=== PATIENT | female | born 1945 | race Caucasian/White ===

== ENCOUNTER 2023-03-08 09:51 | Outpatient (CLI) | payer MEDICARE, BC, SELFPAY ==
--- NOTE | 2023-03-08 10:15 | CRLHL7_ITS ---
For Patients: As a result of the Century Cures Act, medical imaging exams and procedure reports are released immediately into your electronic medical record. You may view this report before your referring provider. If you have questions, please contact your health care provider. Indication: Right groin pain Procedure : Informed consent was obtained. The site was marked. Time-out was performed. The skin of the right hip was cleansed with ChloraPrep. A sterile drape was placed. 8 cc of 1 percent lidocaine was administered for superficial anesthesia. Subsequently a 22 gauge spinal needle was introduced into the right hip joint under intermittent fluoroscopic guidance. 7 cc 1 percent lidocaine and 2 cc 40 milligram/cc Depo-Medrol then placed into the right hip joint. The needle was removed and hemostasis achieved with direct pressure. A dressing was placed. The patient tolerated the procedure well without immediate complication. Total fluoroscopy time 18 seconds. Impression: Successful fluoroscopically guided right hip injection with 80 milligrams of Depo-Medrol. Dictated by Gaetano Jefferson MD @ 03/08/2023 2:18:55 PM (Electronically Signed)
== END 2023-03-08 09:52 | disposition home or self-care (01) ==
LOC: RAD 09:54
PROVIDERS: PCP Physician Assistant; Visit Provider Orthopaedic Surgery Sports Medicine
DX: R10.30 Lower abdominal pain, unspecified (principal); M16.11 Unilateral primary osteoarthritis, right hip
CPT/HCPCS: 20610; 77002; J1030; Q9966

== ENCOUNTER 2023-05-24 13:07 | Outpatient (CLI) | payer MEDICARE, BC, SELFPAY ==
--- NOTE | 2023-05-24 13:45 | MR_ITS ---
[facility] [address] [facility] [address] Phone:?[phone] Fax:?[phone] Referring Physician Information: Kj Cassidy M.D. [address] [facility] [address] Phone:?[phone] Fax:?[phone] Patient:?Clarita Grimaldo D.O.B:?1945 Sex:?Female Phone:?[phone] [facility] MRN:?[id number] Exam Date:?05/24/2023 EXAM: MR LUMBAR SPINE WITHOUT CONTRAST CLINICAL INFORMATION: Low back pain and radiculopathy. COMPARISON: No prior MRI available. TECHNICAL INFORMATION: Multiplanar multisequence imaging in the lumbar spine. Contrast:?None. Sedation:?None. INTERPRETATION: Osseous structures/Alignment: Normal lordotic alignment. Prominent bridging or near bridging ventral osteophytes lower thoracic spine. Several benign intraosseous hemangiomas with no osseous destructive lesion or fracture. Facet/SI joints: Mild to moderate L1-2 through L3-4 facet degenerative changes. No active inflammation. Upper SI joints are unremarkable. Cord/conus: Normal signal intensity distal cord/conus medullaris. Extra-spinal findings: Moderate sized T2 hyperintense left renal cysts, likely incidental finding. L5-S1: Moderate disc degeneration, circumferential bulge and endplate osteophytes with moderate left greater than right foraminal stenosis with left L5 ganglionic impingement and encroachment on the right. No central stenosis. L4-5: Moderate severe disc generation with 4.5 mm central/right dorsolateral disc herniation with subarticular right L5 nerve impingement. No central stenosis. Mild right foraminal stenosis. L3-4: Moderate disc generation with broad-based 3 to 4 mm protrusion, prominent dorsal epidural fat in mild narrowing of the dural sac and encroachment on the L4 roots without significant displacement. Mild bilateral foraminal stenosis. L2-3: Moderate disc degeneration with hypertrophic left facet arthropathy, foraminal bulge and osteophyte and moderate stenosis with left L2 ganglionic impingement. Patent right nerve root canal. L1-2: Mild disc generation, broad-based 4 to 5 mm protrusion with facet hypertrophy and ioze-mc-uhotlryu narrowing the dural sac with and subarticular encroachment on the left L2 root. Sections through the lower thoracic spine are unremarkable. Moderate spondylosis/disc degeneration lower thoracic spine. No neural compromise. CONCLUSION: 1. L4-5 bulge/right dorsolateral herniation with subarticular right L5 nerve impingement. 2. Moderate left L2-3/L5-S1 foraminal stenosis with respective left L2/L5 ganglionic impingement. 3. Iqrc-zf-critkavu central canal stenosis/dural sac narrowing L2-3, L3-4 with no neural impingement. Electronically signed on 05/25/2023 9:37:00 AM by Jamal Coughlin M.D.
--- NOTE | 2023-05-24 14:30 | MR_ITS ---
[facility] [address] [facility] [address] Phone:?[phone] Fax:?[phone] Referring Physician Information: Kj Cassidy M.D. [address] [facility] [address] Phone:?[phone] Fax:?[phone] Patient:?Clarita Grimaldo D.O.B:?1945 Sex:?Female Phone:?[phone] [facility] MRN:?[id number] Exam Date:?05/24/2023 EXAM: MRI of the RIGHT HIP, without contrast CLINICAL: Evaluate for abductor muscle tear. COMPARISONS: None available. TECHNICAL: Multiplanar multisequence MRI of the right hip was obtained. Coronal large putyl-ts-rgip sequences of the pelvis/bilateral hips were also obtained. SEDATION: None. CONTRAST: None. FINDINGS: Evaluation of some of the obtained sequences is relatively limited by motion artifact. Hip joint: Small right hip joint effusion is present with synovitis. There is full-thickness chondral loss throughout the right hip joint. Labrum: There is ill-defined fraying and tearing throughout the labrum. No perilabral cyst formation identified. Proximal femur: There is a subchondral fracture with articular surface collapse seen to involve the superior femoral head and with curvilinear signal changes seen to involve the superior femoral head consistent with sequelae of avascular necrosis. Marked bone marrow edema involves the right femoral head and neck. There is mild degenerative peripheral marginal spurring involving the femoral head neck junction and involving the medial femoral head about the fovea. Acetabulum: There is degenerative peripheral marginal spurring involving the acetabulum with subchondral reactive marrow edema seen to involve the acetabulum. No acetabular fracture identified. Ligamentum teres: Intact and unremarkable. Pelvis osseous structures: No suspicious marrow signal alteration or fracture line. Mild changes of arthrosis are seen to involve the inferior left sacroiliac joint with minimal changes of arthrosis involving the inferior right sacroiliac joint. Moderate degenerative hypertrophic changes are seen to involve the pubic symphysis. No evidence of osteitis pubis. Myotendinous structures: Gluteus abductors: Evaluation of the distal gluteal tendons is limited on the axial PD fat-sat sequence secondary to motion artifact. Suspect partial tearing of the distal right gluteus minimus tendon with associated mild fluid about the distal tendon as visualized. Distal gluteus medius tendon appears unremarkable as visualized. Adductors: No demonstrable tendinopathy or strain/tear. Hamstrings: There is partial tearing/deep fiber stripping involving the proximal hamstring tendons bilaterally at the ischial tuberosity attachment sites. Flexors: Intact iliopsoas and rectus femoris, without strain/tear. External rotators: Intact. The ischiofemoral and quadratus femoris spaces are within normal limits. Gluteal aponeurotic fascia and IT band: Unremarkable. Bursae: No demonstrable trochanteric or iliopsoas bursitis. Intrapelvic structures: Although evaluation of the intrapelvic structures is limited on this exam, no convincing pelvic mass is identified as visualized. Colonic diverticulosis is noted. Multilevel degenerative changes are seen to involve the imaged lower lumbar spine. IMPRESSION: 1. Findings of avascular necrosis with subchondral fracture and articular surface collapse involving the superior right femoral head. Associated marked bone marrow edema involving the right femoral head and neck. 2. Full-thickness chondral loss throughout the right hip joint with osseous changes of right hip osteoarthritis as above. Ill-defined fraying and tearing throughout the acetabular labrum. 3. Suspect partial tearing of the distal right gluteus minimus tendon with associated mild fluid about the distal tendon as visualized. 4. Partial tearing/deep fiber stripping involving the proximal hamstring tendons bilaterally at the ischial tuberosity attachments. 5. Mild changes of arthrosis involving the inferior left sacroiliac joint with minimal changes of arthrosis involving the inferior right sacroiliac joint. 6. Moderate degenerative hypertrophic changes involving the pubic symphysis. JCZ Electronically signed on 05/24/2023 4:57:00 PM by Kamran Begum D.O.
== END 2023-05-24 13:08 | disposition home or self-care (01) ==
LOC: MRI 13:12
PROVIDERS: PCP Physician Assistant; Visit Provider Orthopaedic Surgery Sports Medicine
DX: M70.61 Trochanteric bursitis, right hip (principal); S72.051A Unspecified fracture of head of right femur, initial encounter for closed fracture; S76.011A Strain of muscle, fascia and tendon of right hip, initial encounter; M76.891 Other specified enthesopathies of right lower limb, excluding foot; M51.26 Other intervertebral disc displacement, lumbar region; M54.16 Radiculopathy, lumbar region; M48.061 Spinal stenosis, lumbar region without neurogenic claudication
CPT/HCPCS: 72148; 73721

== ENCOUNTER 2023-06-15 10:33 | Outpatient (RCR) | payer MEDICARE, BC, SELFPAY ==
--- NOTE | 2023-06-15 13:49 | PT.OPEX ---
[facility] Eval Start: 06/15/23 10:58 Freq: Status: Active Protocol: Document 06/15/23 11:01 DESHAUN (Rec: 06/15/23 13:45 DESHAUN [id number]) E-signed By Avelino Benítez PT Physical Therapy Outpatient Evaluation Insurance Information Insurance Name Medicare B,Blue Cross/Blue Shield Medical Diagnosis Right hip OA Treating Diagnosis Right hip pain and weakness Referring MD Cassidy Subjective Subjective Bilateral knee OA and lumbar DJD Pain Comments 8-10 Date of Surgery (If applicable) 06/19/23 Current Work Status Retired Preferred Name Clarita Objective Other/Pertinent Objective Ambulation with 4 wheeled walker with decreased stance on right. Left hip ROM is WFL for age. Right hip ROM: significant deficits in flexion, extension , abduction, ER and IR Strength: left hip WFL; right hip moderate weakness Core weakness/deconditioning Bilateral UE ROM and strength is WFL Assessment Assessment/Impression Objectively, pt. demonstrates; moderate limp during gait even with utilization of 4 wheeled walker; significant loss of right hip ROM with hip flexor contracture and inability to lie supine with right leg flat; hip abductor, flexor, and extensor weakness; right quad weakness; and functional upper body mobility and strength. Pt. lives with her daughter and stays on one level with accessible bathroom with walk in shower and raised toilet frame. She has 5 steps with bilateral railing to get to her level. She would benefit from skilled therapy following her JACKY on 06/19/23. Primary Functional Limitations walking, lifting right leg, squatting, sleeping Plan of Care Rehabilitation Potential Excellent Physical Therapy Goals 1. Pt. will demonstrate understanding of JACKY surgery and her pre-op HEP today. MET 2. Pt. will be able to walk with a cane safely without increased right hip pain in 8 weeks. 3. Pt. will be able to drive and perform her normal ADL's again indep in 8 weeks. Coordination/Communication With Referral Source Treatment Plan/Direct Interventions Self-Care/Home Management, Therapeutic Activities, Therapeutic Exercises Frequency/Duration 1x visit today for pre-op JACKY education and instruction in HEP. She will then follow up after JACKY surgery with another outpatient PT clinic in [place]. Patient Will Be Discharged From Therapy Independent w/HEP Evaluation Billing Complexity Low Certification Information Initial Certification Date 06/15/23 Ending Certification Date 07/15/23 Provider Signature Shows Agreement With POC & Medical Necessity Physician Signature & Date Requested Please Sign/Date Here Physician Comment/Change : Physician NPI Number #
== END 2023-06-20 11:18 | disposition home or self-care (01) ==
PROVIDERS: PCP Physician Assistant; Visit Provider Orthopaedic Surgery Sports Medicine
DX: M16.11 Unilateral primary osteoarthritis, right hip (principal); R26.9 Unspecified abnormalities of gait and mobility; Z51.89 Encounter for other specified aftercare
CPT/HCPCS: 97110; 97161

== ENCOUNTER 2023-06-17 14:54 | Outpatient (CLI) | payer MEDICARE, BC, SELFPAY | END 2023-06-17 14:55 | disposition home or self-care (01) | PROVIDERS: PCP Physician Assistant; Visit Provider Orthopaedic Surgery Sports Medicine | DX: Z01.818 Encounter for other preprocedural examination (principal) | CPT/HCPCS: 36415; 86850; 86900; 86901 ==

== ENCOUNTER 2023-06-19 07:01 | Day surgery (SDC) | payer MEDICARE, BC, SELFPAY ==
[2023-06-19] VITALS (25 sets, daily range): BP systolic 90–165; BP diastolic 41–83; PULSE 60–98; RESP 14–20; TEMP 36.1–37.3; O2SAT 74–100; BMI 42.7
--- NOTE | 2023-06-19 07:18 | W.PM.H&PU ---
History & Physical Update History & Physical Update H&P Reviewed and patient assessed: No changes noted
[2023-06-19] MEDS: SODIUM CHLORIDE 0.9 % (FLUSH) 10 ML SYRINGE IVF ×2 (07:20→11:34)
[2023-06-19] MEDS: ACETAMINOPHEN 500 MG TABLET 1000 MG PO ×3 (07:20→18:30)
[2023-06-19] MEDS: LACTATED RINGERS 1000 ML 1,000 ML 100 ML IV ×2 (07:20→10:45)
[2023-06-19] MEDS: OXYCODONE (CR) 10 MG TAB.ER.12H PO (07:20)
--- NOTE | 2023-06-19 07:21 | CRLHL7_ITS ---
For Patients: As a result of the Cures Act, medical imaging exams and procedure reports are released immediately into your electronic medical record. You may view this report before your referring provider. If you have questions, please contact your health care provider. Indication: s/p right total hip arthroplasty Technique: AP hip centered pelvis and lateral view right hip Findings/Impression: Hardware from a right total hip arthroplasty is in satisfactory position. Bone alignment is normal. No sign of acute fracture. Postop changes are within normal limits. Dictated by Gaetano Jefferson MD @ 06/19/2023 10:56:05 AM (Electronically Signed)
[2023-06-19] MEDS: MIDAZOLAM HCL 1 MG/ML inj IVP (07:30)
[2023-06-19] MEDS: fentaNYL 100 MCG/2 ML inj IVP (07:30)
--- NOTE | 2023-06-19 07:30 | CRLHL7_ITS ---
For Patients: As a result of the Cures Act, medical imaging exams and procedure reports are released immediately into your electronic medical record. You may view this report before your referring provider. If you have questions, please contact your health care provider. Indication: Hip replacement surgery Technique: AP hip fluoroscopic images. Fluoroscopy time 47.0 seconds. Findings/Impression: Hardware from a right total hip arthroplasty is in satisfactory position. Dictated by Gaetano Jefferson MD @ 06/19/2023 11:09:00 AM (Electronically Signed)
--- NOTE | 2023-06-19 07:35 | SUR.PREOP ---
TIME?OUT:?0725 PT/RN/MDA?VERIFICATION?OF?SURGICAL?SITE,?PROCEDURE,?AND?CONSENT OBTAINED?PRIOR?TO?INVASIVE?PROCEDURE.
[2023-06-19] MEDS: CEFAZOLIN 2 GM in 0.9 % SODIUM CHLORIDE Mini-bag 100 ML IVPB ×3 (07:57→23:52)
--- NOTE | 2023-06-19 09:19 | PM.ORPRC ---
Procedure Note Date of procedure: 06/19/23 Procedure: PREOPERATIVE DIAGNOSIS: 1. Right hip osteoarthritis, severe, primary POSTOPERATIVE DIAGNOSIS: 1. Right hip osteoarthritis, severe, primary PROCEDURE: 1. Right total hip arthroplasty-anterior approach 2. 45316 - intraoperative fluoroscopy up to 1 hour. SURGEON: Kj Cassidy MD. MEDICAL GENETICS DIRECTOR: Harshil Luque PA-C; ROSY Sotelo - Of note, a skilled career services assistant was critical for this case to aid in patient positioning, tissue retraction, limb manipulation/positioning, and closure. ANESTHESIA: General endotracheal anesthetic EBL: 450 mL IMPLANTS: DePuy J&J uncemented total hip Ingraham cup size 48, hole eliminator, +4 neutral liner Actis stem, standard offset, size 5 +5 mm ceramic 32mm head COMPLICATIONS: None evident INDICATIONS: The patient is a pleasant 78-year-old female who has experienced severe right hip pain and difficulty bearing weight. Workup included x-rays which revealed severe osteoarthrosis in the hip. Given the deformity, the dysfunction, and the pain, as well as the failure of nonoperative management, recommendation was made for surgery. FINDINGS: Full-thickness chondral loss broadly throughout the femoral head. Osteophytes around the femoral head/neck junction and lateral and anterior acetabulum in particular. Small effusion upon entering the joint. DESCRIPTION OF PROCEDURE: Following a thorough discussion of risks, benefits, and alternatives consent was obtained and the right hip was marked. The patient was brought to the operating room and placed supine on the operating table. Induction of anesthesia was undertaken. 2 g IV Ancef and 1 g tranexamic acid was administered within 1 hr of incision preoperatively. Proper time-out was performed identifying proper patient, site, procedure. The operative extremity was prepped and draped in the appropriate sterile fashion using ChloraPrep after the patient was positioned on the [place] table with head in neutral alignment and all bony prominences well padded. C-arm fluoroscopic imaging was utilized to confirm proper pelvis rotation and position, and to get true AP films of both the contralateral left, and the affected right hip. This is for comparison. A longitudinal incision was made starting approximately 1 cm distal to the ASIS, and 3-4 cm lateral. The incision was extended distally aiming toward the lateral border the patella. Sharp incision through skin and bovie cautery through the subcutaneous tissue allowed identification of the TFL fascia. This was sharply divided, and the fascia bluntly released from the muscle fibers as we dissected medial. Upon coming to the medial border, we were able to retract the TFL laterally, and penetrated the deeper fascia and identify the crossing circumflex vessels. These were ligated/cauterized. The rectus was elevated from the capsule, and retractors placed laterally and medially along the femoral neck to help with visualization of the capsule. We then performed an inverted T capsulotomy. The capsule was tagged for later repair. Retractors were placed inside the capsule. The femoral neck was visualized after releasing medially down to the lesser trochanter, along the saddle laterally, and up onto the acetabulum. The femoral neck cut was made in line with our preoperative templating. The head was removed in a single piece, and sized. We turned our attention to acetabular preparation. Initially, the labrum was resected from around the perimeter, the pulvinar was excised, allowing us to visualize the false wall. We started the reaming with a 43 mm reamer. This was medialized down to the true wall. We then enlarged our reamers sequentially up to one size less than the selected cup size. We trialed at the same size and found it to have an excellent fit. The selected cup was then opened, inserted, and impacted in line with the goal of 40? of abduction, and 20-25? of anteversion. This was confirmed on C-arm fluoroscopic imaging to be in the appropriate/goal position. Once the cup was placed we placed a hole eliminator and a liner consistent with preop planning. Attention was turned to the femoral preparation. The limb was extended, externally rotated, and adducted. The posteromedial capsule was released, as retractors were placed allowing excellent access to the proximal femur. Initially a box office agent was followed by canal finder followed by various broaches. We broached sequentially up to the size noted above, found it to have excellent rotational control, and trialing various heads and necks, revealed that appropriate neck offset, and the above noted head size provided the greatest stability, and hinduism of length, and offset. C-arm fluoroscopic imaging confirmed position of the stem, as well as leg lengths, which were compared with the pre procedure all fluoroscopic images. Trial implants were removed, the real femoral stem inserted, as was the appropriate head. After reducing, the leg was placed through range of motion and stability was confirmed anterior, posterior, and lateral. A 3 min Betadine soak was then performed, and thorough irrigation with normal saline followed. Closure of the capsule was performed with #1 PDS. Bleeding was confirmed to be controlled at this stage, and the TFL fascia was closed with #0 strata fix. Subcutaneous, and subcuticular closure was performed with 2-0 Vicryl and 4-0 Monocryl, respectively. Dressings were applied, and the patient was awoken from anesthesia and transferred the PACU in stable condition. A skilled career services assistant was critical for this case to aid in patient positioning, tissue retraction, acetabular and proximal femoral exposure, limb manipulation/positioning, dislocation/relocation, patient safety, and closure. PLAN: 1. Weight bear as tolerated operative extremity. 2. 23 hr perioperative antibiotics. 3. Ice. 4. PT/OT consults for ambulation assistance/mobility education. 5. Social work consult for discharge planning. 6. DVT prophylaxis with at SCDs, Chaitanya Hose, and Xarelto x5 days followed by aspirin for a total of 1 month..
--- NOTE | 2023-06-19 10:02 | W.ANESCHARGE ---
Anesthesia Charges Start Date/Time Anesthesia Start Date: 06/19/23 Anesthesia Start Time: 07:39 Stop Date/Time Anesthesia Stop Date: 06/19/23 Anesthesia Stop Time: 10:02
--- NOTE | 2023-06-19 10:09 | SUR.PHASEI ---
xray here for ap/lat right hip
[2023-06-19] MEDS: fentaNYL 100 MCG/2 ML inj 50 MCG IVP (10:37)
--- NOTE | 2023-06-19 10:47 | SUR.PHASEI ---
Pt has pain of 6-7 iv meds given needed to reapply o2 sats decreased from medication
[2023-06-19] MEDS: HYDROmorphone 0.5 mg/0.5 ml inj IVP (11:33)
--- NOTE | 2023-06-19 11:40 | W.PM.NB ---
Nerve Block Nerve Block Time Seen by Provider: 07:32 Date Seen: 06/19/23 Type of block requested by surgeon for post-operative analgesia: MOMO/LFCN Side: right Time out performed: Yes Verification of patient name: Yes Verification of date of : Yes Site marking: site marked Name of person performing procedure: Dandre Continuous monitoring Was continuous monitoring of O2 sat, B/P, hospital monitor, recorded every 15 minutes?: Yes Procedure Checklist: sterile prep, needles and gloves Ultrasound guided. Images saved: Yes Medications given in 5ml increments after negative aspiration: Ropivicaine %: 0.5 mL: 30 Needle gauge: 20 Decadron (mg): 10 Precedex (mcg): 25 Patient tolerated procedure well: Yes Additional comments: Needle noted below psoas tendon needle noted adjacent to LFCN Block Charges Block Charge (with Pro Fee): Other Periph Nerve Block Use of Ultrasound Machine for Block: Yes- US Guidance/pain block
--- NOTE | 2023-06-19 11:41 | W.ANESCHARGE ---
Anesthesia Charges Start Date/Time Anesthesia Start Date: 06/19/23 Anesthesia Start Time: 07:39 Stop Date/Time Anesthesia Stop Date: 06/19/23 Anesthesia Stop Time: 10:02 Summary Extremes of Age - Over 70 or under 1: MDA
--- NOTE | 2023-06-19 12:21 | P.IMCN_ITS ---
Date of Consult Patient: Other Consult date: 06/19/23 Requesting Physician: Orthopedics Primary Care Provider: Gabby Dupree PA-C Consult Narrative Narrative: Clarita Grimaldo is a 78 year old female admitted to the hospital for right total hip arthroplasty. Procedure was performed by Dr. Cassidy. No immediate operative complications. Patient reports doing well after the surgery. She is having some pain and his receive some pain medication causing some sedation. She reports that she was feeling well prior to surgery. She has had no recent illness. She does report that her life has been quite limited by chronic hip pain and immobility as a result. She had a preoperative evaluation which did not show any significant medical concern for her elective hip surgery. Postoperatively she has been hypoxic and there nurses applied nasal cannula oxygen to deal with this. Patient denies any history of heart or lung disease. She denies having sleep apnea as well. She tells me her had sleep apnea so she is familiar with it. She took all of her medications this morning except she has held her aspirin preoperatively. She did take her glipizide last evening, her usual time. Review of Systems Narrative: Other than her right hip pain she reports she has been doing well recently without other active medical problems. [facility] Medical History (Updated 06/19/23 @ 12:34 by Robert Guerrero MD) Hypercholesterolemia ?E78.00 - Pure hypercholesterolemia, unspecified (ICD-10) Dysphagia ?R13.10 - Dysphagia, unspecified (ICD-10) Dyspepsia ?R10.13 - Epigastric pain (ICD-10) Diverticulitis ?K57.92 - Diverticulitis of intestine, part unspecified, without perforation or abscess without bleeding (ICD-10) Depression ?F32.A - Depression, unspecified (ICD-10) Barretts esophagus ?K22.70 - Luu's esophagus without dysplasia (ICD-10) Diabetes ?E11.9 - Type 2 diabetes mellitus without complications (ICD-10) GERD (gastroesophageal reflux disease) ?K21.9 - Gastro-esophageal reflux disease without esophagitis (ICD-10) Hypertension ?I10 - Essential (primary) hypertension (ICD-10) Encounter for screening laboratory testing for severe acute respiratory syndrome coronavirus 2 (SARS-CoV-2) ?Z20.822 - Contact with and (suspected) exposure to COVID-19 (ICD-10) Surgical History (Updated 06/19/23 @ 12:32 by Robert Guerrero MD) History of vaginal hysterectomy ?Z90.710 - Acquired absence of both cervix and uterus (ICD-10) History of arthroscopy of left shoulder ?Z98.890 - Other specified postprocedural states (ICD-10) Status post blepharoplasty of both eyes (12/02/21) ?Z98.890 - Other specified postprocedural states (ICD-10) Fissure, anal (~2020) ?K60.2 - Anal fissure, unspecified (ICD-10) History of carpal tunnel surgery of right wrist (05/27/20) ?Z98.890 - Other specified postprocedural states (ICD-10) History of breast surgery ?Z98.890 - Other specified postprocedural states (ICD-10) History of hernia repair ?Z98.890 - Other specified postprocedural states (ICD-10) ?Z87.19 - Personal history of other diseases of the digestive system (ICD-10) History of trigger finger (03/10/21) ?Z87.39 - Personal history of other diseases of the musculoskeletal system and connective tissue (ICD-10) History of carpal tunnel surgery of left wrist (03/10/21) ?Z98.890 - Other specified postprocedural states (ICD-10) History of cholecystectomy ?Z90.49 - Acquired absence of other specified parts of digestive tract (ICD- 10) Family History (Updated 06/19/23 @ 12:26 by Robert Guerrero MD) Brother COPD (chronic obstructive pulmonary disease) Coronary artery disease Prostate cancer Diabetes Sister Colon cancer Coronary artery disease Social History (Updated 06/19/23 @ 12:28 by Robert Guerrero MD) Narrative: She is about 4 years ago. She lives with her daughter and son-in-law in [place]. They have a 3 level house and she lives in the lower level. She has 5 steps to get into the lower level. She has a walk-in shower. She does not smoke. She does not drink alcohol. Her daughter Paris is healthcare power of assistant attorney general What is your current living situation?: I presently have a place to live Problems where you live: no known problems In the past 12 months, utilities in danger of being shut off: no In past 12 months, lack of transportation kept you from medical appts, meetings, work, or getting things needed for daily living: no In the past 12 mos, have been you worried that your food would run out before you had money to buy more?: never true In the past 12 mos, the food you bought just didn't last and you didn't have money to buy more?: never true Highest level of school completed/degree received: high school graduate Smoking Status: Never smoker Do you use any of these nicotine containing products: None Second hand tobacco smoke exposure: No How often do you have a drink containing alcohol: never How often do you have six or more drinks on one occasion: Never AUDIT-C Alcohol total score: 0 Non-prescribed substance use: denies use Caffeine: Yes (coffee) Are you now , , , , never or living with a partner: Social isolation score (0-1 are the most socially isolated patients): 0 How often does anyone, including family, friends and others, physically hurt you : never How often does anyone, including family, friends and others, insult or talk down to you: never How often does anyone, including family, friends and others, threaten you with harm: never How often does anyone, including family, friends and others, scream or curse at you: never Meds Home Medications and Allergies Home Medications Medication Instructions Recorded Confirmed Type antiarthritic combination no.2 900 900 mg PO QDAY 02/14/22 06/19/23 History mg tablet (glucosamine-chondroitin) aspirin 81 mg tablet,delayed 81 mg PO DAILY 02/14/22 06/19/23 History release atorvastatin 80 mg tablet 80 mg PO .Bedtime 02/14/22 06/19/23 History calcium polycarbophil 625 mg 1,250 mg PO QDAY 02/14/22 06/19/23 History tablet (FiberCon) calcium-vitamin D2-iron tablet 1 tab PO QDAY 02/14/22 06/19/23 History clobetasol 0.05 % topical cream 1 topical BID 02/14/22 06/06/23 History estradiol 0.01% (0.1 mg/gram) 1 vaginal DAILY 02/14/22 06/06/23 History vaginal cream fluticasone propionate 50 2 intranasal DAILY 02/14/22 06/06/23 History mcg/actuation nasal spray,suspension omeprazole 20 mg capsule,delayed 20 mg PO DAILY 02/14/22 06/19/23 History release sertraline 50 mg tablet 50 mg PO DAILY 02/14/22 06/19/23 History albuterol sulfate 90 mcg/actuation inhalation 03/21/23 06/06/23 History aerosol inhaler amlodipine 2.5 mg tablet 2.5 mg PO DAILY 03/21/23 06/19/23 History glipizide 2.5 mg tablet, extended 2.5 mg PO DAILY 03/21/23 06/19/23 History release 24 hr hydrochlorothiazide 12.5 mg tablet 12.5 mg PO DAILY 03/21/23 06/19/23 History lisinopril 40 mg tablet 40 mg PO DAILY 03/21/23 06/19/23 History Allergies Allergy/AdvReac Type Severity Reaction Status Date / Time morphine Allergy Unknown Verified 06/19/23 07:40 Exam Narrative: Exam Narrative: She is alert and appears in no distress. She gives her own history. Eyes normal. Oropharynx with small airway, Mallampati 3. Neck is supple without mass or adenopathy. Respirations are clear to auscultation. No wheezing rales or rhonchi. Cardiovascular: S1, S2, regular rate and rhythm. 2/6 systolic murmur. No gallop or rub. Abdomen is soft without tenderness or mass. She has a diastasis recti. External genitalia normal. Hip appears without obvious swelling bruising or erythema. Distally she has intact pulses and sensation. No edema. Const: Vital Signs, click to edit/add: Vital Signs - 24 hr 06/19/23 07:26 06/19/23 07:30 06/19/23 07:35 Temperature 97.7 F Pulse Rate 79 78 75 Pulse Rate [Right Pulse Oximeter] Respiratory Rate 16 16 16 Blood Pressure 165/79 H 136/67 136/70 Blood Pressure [Le ft Arm] Pulse Oximetry 97 97 95 Oxygen Delivery Me thod Room Air Nasal Cannula Nasal Cannula Oxygen Flow Rate 2 2 06/19/23 10:04 06/19/23 10:05 06/19/23 10:10 Temperature 97.8 F Pulse Rate 98 75 69 Pulse Rate [Right Pulse Oximeter] Respiratory Rate 20 20 20 Blood Pressure 143/67 H 109/61 112/52 L Blood Pressure [Le ft Arm] Pulse Oximetry 96 97 100 Oxygen Delivery Me thod Non Rebreather Mas k Non Rebreather Mas k Non Rebreather Mas k Oxygen Flow Rate 10 10 10 06/19/23 10:15 06/19/23 10:20 06/19/23 10:25 Temperature Pulse Rate 62 60 64 Pulse Rate [Right Pulse Oximeter] Respiratory Rate 20 20 20 Blood Pressure 109/51 L 96/43 L 98/44 L Blood Pressure [Le ft Arm] Pulse Oximetry 100 100 98 Oxygen Delivery Me thod OxyMask Non Rebrea ther Mask OxyMask Room Air Oxygen Flow Rate 10 10 06/19/23 10:30 06/19/23 10:35 06/19/23 10:40 Temperature 98.2 F Pulse Rate 65 62 62 Pulse Rate [Right Pulse Oximeter] Respiratory Rate 20 20 20 Blood Pressure 92/41 L 90/44 L 94/45 L Blood Pressure [Le ft Arm] Pulse Oximetry 94 96 94 Oxygen Delivery Me thod Room Air Room Air OxyMask Oxygen Flow Rate 10 06/19/23 10:45 06/19/23 10:50 06/19/23 11:01 Temperature 96.9 F L Pulse Rate 65 67 64 Pulse Rate [Right Pulse Oximeter] Respiratory Rate 20 20 16 Blood Pressure 96/48 L 98/44 L Blood Pressure [Le ft Arm] 128/60 Pulse Oximetry 99 97 Oxygen Delivery Me thod OxyMask Room Air Room Air Oxygen Flow Rate 10 06/19/23 11:15 06/19/23 11:30 Temperature 96.9 F L 97.0 F L Pulse Rate Pulse Rate [Right Pulse Oximeter] 65 65 Respiratory Rate 18 18 Blood Pressure Blood Pressure [Le ft Arm] 118/57 L 119/54 L Pulse Oximetry 93 95 Oxygen Delivery Me thod Nasal Cannula Nasal Cannula Oxygen Flow Rate 1 1 Documenting provider has reviewed patient's vital signs: yes Assessment and Plan Assessment and plan (1) S/P total right hip arthroplasty: Problem comment: Dr. Cassidy 06/19/2023 Status: Acute (2) Hypoxia: Problem comment: Postoperative hypoxia. Suspect combination of opiate medicines causing sedation and undiagnosed sleep apnea Status: Acute (3) Obesity: Problem comment: BMI 42.8 (previous BMI of 41.9) Status: Acute (4) Diabetes: Problem comment: recent A1c of 7.2% May 2023. Monitor and sliding scale insulin plus home diabetes medicines. Status: Acute (5) Avascular necrosis of bone of right hip: Problem comment: AVN with subchondral fracture and articular surfrace collapse involving the superior right femoral head. Associated marked bone marrow edema involving the right femoral head and neck Status: Acute (6) Osteoarthritis of right hip: Problem comment: Severe Status: Acute (7) Hypertension: Problem comment: Hold home blood pressure medicines until blood pressure requires. Status: Acute Plan 78-year-old female admitted for right hip arthroplasty and postoperative care. Routine management with pain medication and therapy. Anticipate some disability due to obesity and deconditioning. Anticipate hypoxia from opioids and undiagnosed sleep apnea. Monitor blood pressure and resume blood pressure medicines as required. Monitor diabetes and sliding scale insulin. Anticipate discharge to home with her daughter tomorrow. Total time spent today is 45 minutes, 30 minutes in coordination of care and discussing with patient other providers management of postoperative care, discharge and management of chronic medical problems in the hospital
[2023-06-19] MEDS: OXYCODONE 5 MG TABLET PO ×4 (13:31→23:46)
--- NOTE | 2023-06-19 15:24 | PC.NURSE ---
End of shift NOte: Patient arrived to the unit around 1100. Today She had a pain of 10/10 when she first arrived and received dilaudid for the pain. Within an hour she was wanting to get up to the bathroom. Had two people as it was her first time getting up since surgery. She was a little dizzy at first but was able to ambulate to BR and then to the recliner chair. She had regular diet for lunch also took oral pain medication. Will continue to monitor until next shift arrives.
[2023-06-19] MEDS: INSULIN ASPART 100 UNIT/ML SUBCUT ×2 (17:34→21:21)
[2023-06-19] MEDS: ATORVASTATIN CALCIUM 40 MG TABLET 80 MG PO (20:53)
[2023-06-19] MEDS: SENNOSIDES 1 TAB TABLET 2 TAB PO (20:53)
[2023-06-19] MEDS: glipiZIDE 2.5 MG ER TAB PO (20:53)
--- NOTE | 2023-06-19 21:30 | PC.NURSE ---
Addendum entered by Olivia Noonan RN 06/19/23 21:53: 4 units of SS insulin given at dinner, and 2 units at bedtime. Original Note: VSS, sats in low 90s on RA. Right hip pain managed w/ PRN 10 mg oxy, scheduled tylenol, & ice. Tolerating regular diet, 1100 cc fluids in. Voided x3- straw yellow, odorous urine. Last BM yesterday, 06/18/23. Up with SBA, gait belt, and walker x3. Dressing on right hip-c/d/i. PIV in right hand- SL'd. Will continue to monitor, follow POC, and keep pt and family updated. Olivia Noonan RN
[2023-06-20] MEDS: ACETAMINOPHEN 500 MG TABLET 1000 MG PO ×2 (01:18→07:43)
[2023-06-20 03:00] VITALS: BP 122/63; PULSE 88; RESP 18; TEMP 37; O2SAT 94
[2023-06-20] MEDS: OXYCODONE 5 MG TABLET PO ×2 (03:33→07:44)
[2023-06-20] MEDS: OMEPRAZOLE 20 MG CAPSULE DR PO (06:08)
--- NOTE | 2023-06-20 06:35 | PC.NURSE ---
Pt A&O, VSS and afebrile overnight. Very low-grade fever beginning of shift. T-max 99.2 resolved with scheduled Tylenol. Pt rates right hip/buttock pain 12/17 as being dull and throbbing. Received PRN oxycodone x2 doses (last dose @ 0330). Pt SBA with GB & 2WW. Steady gait and adequate U/O overnight. No BM overnight but passing gas. Right hip dressing C/D/I. Pt hopeful to discharge home today 06/20. Cumulative Tylenol warning flagged for AM dose so unable to give at scheduled time. ?
[2023-06-20 06:38] LABS: Basophils Percent Auto 0.1 % (0.0-3.0); Hematocrit 27.5 % (33.0-51.0); Immature Granulocytes Pct Auto 0.2 %; Lymphocytes Percent Auto 21.4 % (20-44); Mean Corpuscular HGB Conc 33 gm/dL (32-36); Mean Corpuscular Hemoglobin 30 pg (26-34); Mean Corpuscular Volume 91 fL (80-100); Monocytes Percent Auto 9.3 % (0.0-11.0); Platelet Count* 247 K/uL (140-440); RDW Coefficient of Variation % 12.8 % (11.5-15.5); Red Blood Count 3.02 m/uL (4.00-5.20); White Blood Count* 11.61 K/uL (4.50-11.00)
[2023-06-20 06:42] LABS: Slide Review Reflex No
[2023-06-20 06:49] LABS: Potassium* 3.9 mmol/L (3.6-5.1); Sodium* 129 mmol/L (135-149)
[2023-06-20 06:52] LABS: Creatinine* 0.8 mg/dL (0.5-1.5); Est. Creatinine Clearance* 37.26; Estimated Glomerular Filt Rate 76 ml/min
[2023-06-20 06:53] LABS: Blood Urea Nitrogen* 22 mg/dL (7-30)
[2023-06-20 07:00] VITALS: BP 134/57; PULSE 93; RESP 20; TEMP 36.6; O2SAT 93
[2023-06-20] MEDS: INSULIN ASPART 100 UNIT/ML SUBCUT (07:42)
[2023-06-20] MEDS: SERTRALINE 50 MG TABLET PO (07:43)
[2023-06-20] MEDS: RIVAROXABAN 10 MG TABLET PO (07:44)
[2023-06-20] MEDS: ASPIRIN 81 MG TABLET EC PO (07:44)
[2023-06-20] MEDS: SENNOSIDES 1 TAB TABLET 2 TAB PO (07:47)
--- NOTE | 2023-06-20 10:29 | PM.ORPN ---
Subjective Subjective Date Seen: 06/20/23 Principal diagnosis: Status postop day 1, right total hip arthroplasty - anterior approach Interval history: Patient reports doing well. No acute events over night. Pain managed with scheduled and PRN medications, ice. DVT prophylaxis: Rivaroxaban, bilateral knee high Chaitanya stockings, SCDs, walking. Denies fevers, chills, aches, N/V, CP, SOB/KHAN, or lightheadedness. Ortho Exam Narrative Exam Narrative: -Patient appears comfortable in recliner; no apparent acute distress. Sister present. -Alert and oriented times 3 -Operative hip swollen; soft tissues supple; no obvious erythema. Ecchymosis minimal. Warmth appropriate -Surgical dressing clean, dry, intact; no obvious drainage, no erythematous streaking peripheral to the bandage -Bilateral calves soft and supple; no significant swelling, edema, tenderness, erythema, discoloration, warmth, or palpable cords -2+ DP/PT pulses, intact dermatomes and myotomes distally (5/5 strength). Noted numbness about the lateral femoral cutaneous nerve distribution. Const Vital Signs, click to edit/add: Vital Signs - 24 hr 06/19/23 10:30 06/19/23 10:35 06/19/23 10:40 Temperature 98.2 F Pulse Rate 65 62 62 Pulse Rate [Right Pulse Oximeter] Respiratory Rate 20 20 20 Blood Pressure 92/41 L 90/44 L 94/45 L Blood Pressure [Left Arm] Blood Pressure [Right Arm] Pulse Oximetry 94 96 94 Oxygen Delivery Method Room Air Room Air OxyMask Oxygen Flow Rate 10 06/19/23 10:45 06/19/23 10:50 06/19/23 11:01 Temperature 96.9 F L Pulse Rate 65 67 64 Pulse Rate [Right Pulse Oximeter] Respiratory Rate 20 20 16 Blood Pressure 96/48 L 98/44 L Blood Pressure [Left Arm] 128/60 Blood Pressure [Right Arm] Pulse Oximetry 99 97 Oxygen Delivery Method OxyMask Room Air Room Air Oxygen Flow Rate 10 06/19/23 11:15 06/19/23 11:30 06/19/23 12:30 Temperature 96.9 F L 97.0 F L 97.0 F L Pulse Rate Pulse Rate [Right Pulse Oximeter] 65 65 75 Respiratory Rate 18 18 18 Blood Pressure Blood Pressure [Left Arm] 118/57 L 119/54 L 107/83 Blood Pressure [Right Arm] Pulse Oximetry 93 95 94 Oxygen Delivery Method Nasal Cannula Nasal Cannula Nasal Cannula Oxygen Flow Rate 1 1 1 06/19/23 13:00 06/19/23 13:30 06/19/23 14:00 Temperature 97.0 F L 97.0 F L Pulse Rate Pulse Rate [Right Pulse Oximeter] 73 86 78 Respiratory Rate 20 20 20 Blood Pressure Blood Pressure [Left Arm] 126/64 133/70 108/52 L Blood Pressure [Right Arm] Pulse Oximetry 89 92 Oxygen Delivery Method Room Air Nasal Cannula Nasal Cannula Oxygen Flow Rate 1 1 06/19/23 15:14 06/19/23 15:36 06/19/23 18:20 Temperature 98.1 F 97.7 F Pulse Rate Pulse Rate [Right Pulse Oximeter] 72 78 88 Respiratory Rate 20 14 18 Blood Pressure Blood Pressure [Left Arm] 114/51 L Blood Pressure [Right Arm] 114/51 L 147/66 H Pulse Oximetry 94 93 92 Oxygen Delivery Method Nasal Cannula Nasal Cannula Room Air Oxygen Flow Rate 1 0.5 06/19/23 23:00 06/19/23 23:00 06/20/23 03:00 Temperature 99.2 F 98.6 F Pulse Rate Pulse Rate [Right Pulse Oximeter] 88 88 88 Respiratory Rate 16 16 18 Blood Pressure Blood Pressure [Left Arm] 117/62 Blood Pressure [Right Arm] 122/63 Pulse Oximetry 94 94 Oxygen Delivery Method Room Air Room Air Oxygen Flow Rate 06/20/23 07:00 06/20/23 07:00 Temperature 97.8 F Pulse Rate Pulse Rate [Right Pulse Oximeter] 93 93 Respiratory Rate 20 20 Blood Pressure Blood Pressure [Left Arm] Blood Pressure [Right Arm] 134/57 L Pulse Oximetry 93 Oxygen Delivery Method Room Air Oxygen Flow Rate Assessment and Plan Assessment and plan (1) S/P total right hip arthroplasty: Problem details: Dr. Cassidy 06/19/2023 Status: Acute (2) Hypoxia: Problem details: Postoperative hypoxia. Suspect combination of opiate medicines causing sedation and undiagnosed sleep apnea Status: Acute (3) Obesity: Problem details: BMI 42.8 (previous BMI of 41.9) Status: Acute (4) Diabetes: Problem details: recent A1c of 7.2% May 2023. Monitor and sliding scale insulin plus home diabetes medicines. Status: Acute (5) Avascular necrosis of bone of right hip: Problem details: AVN with subchondral fracture and articular surfrace collapse involving the superior right femoral head. Associated marked bone marrow edema involving the right femoral head and neck Status: Acute (6) Osteoarthritis of right hip: Problem details: Severe Status: Acute (7) Hypertension: Problem details: Hold home blood pressure medicines until blood pressure requires. Status: Acute Plan - Complete 23 hour perioperative antibiotics. - PT/OT consult for education and assistance. - Social work consult for discharge planning - Prescribed analgesics as needed - DVT prophylaxis: Rivaroxaban, bilateral knee high Chaitanya Hose stockings and SCDs - Anticipation is for discharge to home with daughter, son in law, sister today 06/20/2023 if the patient remains medically stable, pain is controlled, and they are safe with mobilization.
== END 2023-06-20 11:17 | disposition home or self-care (01) ==
LOC: OR 07:02 → MEDSURG 07:04
PROVIDERS: PCP Physician Assistant; Visit Provider Orthopaedic Surgery Sports Medicine
PROC: (CPT 27130; principal; 2023-06-19 07:30)
DX: M16.11 Unilateral primary osteoarthritis, right hip (principal); M87.850 Other osteonecrosis, pelvis; G89.18 Other acute postprocedural pain; R09.02 Hypoxemia; E11.9 Type 2 diabetes mellitus without complications; I10 Essential (primary) hypertension; K21.9 Gastro-esophageal reflux disease without esophagitis; E66.9 Obesity, unspecified; Z68.41 Body mass index [BMI] 40.0-44.9, adult; E78.00 Pure hypercholesterolemia, unspecified; F32.A Depression, unspecified
CPT/HCPCS: 27130; 01214; 36415; 64450; 73501; 76000; 76942; 82565; 82962; 84132; 84295; 84520; 85025; 97110; 97116; 97161; 97165; 99100; A9270; C1776; J0330; J0690; J1100; J1170; J2250; J2405; J2704; J2710; J2795; J3010; J3490; J7120

== ENCOUNTER 2024-05-03 20:00 | Inpatient (IN) | payer MEDICARE, BC, SELFPAY ==
[2024-05-03] VITALS (13 sets, daily range): BP systolic 121–135; BP diastolic 51–71; PULSE 91–106; RESP 26–28; TEMP 36.8–37; O2SAT 90–94; BMI 42.8; BMI 42.5
--- NOTE | 2024-05-03 20:43 | ED.SOB ---
HPI - SOB/Dyspnea General Time Seen by Provider: 20:43 Date Seen: 05/03/24 Chief Complaint: Shortness of Breath/Dyspnea Stated Complaint: Coughing blood Time Seen by Provider: 05/03/24 20:43 Source: patient and RN notes reviewed Mode of arrival: wheelchair Limitations: no limitations History of Present Illness HPI Narrative: This 79-year-old female is coming in with concern of hemoptysis. She had low oxygen saturation in the 80s at home today as well. She has felt clammy and cold today. She has had upper respiratory symptoms since April 21. She has had 3- COVID and flu swabs since that time. She was in the ER in [place] yesterday, states she had a chest x-ray. She is feeling short of breath. She denies any smoking history. She denies any history of COPD, emphysema, no cardiac or respiratory diagnoses are chronic issues. Related Data Home Medications ?Medication ?Instructions ?Recorded ?Confirmed antiarthritic combination no.2 900 900 mg PO QDAY 02/14/22 11/02/23 mg tablet (glucosamine-chondroitin) atorvastatin 80 mg tablet 80 mg PO .Bedtime 02/14/22 05/03/24 calcium polycarbophil 625 mg 1,250 mg PO QDAY 02/14/22 11/02/23 tablet (FiberCon) calcium-vitamin D2-iron tablet 1 tab PO QDAY 02/14/22 05/03/24 clobetasol 0.05 % topical cream 1 topical BID 02/14/22 11/02/23 estradiol 0.01% (0.1 mg/gram) 1 g vaginal DAILY 02/14/22 05/03/24 vaginal cream fluticasone propionate 50 2 spray intranasal DAILY 02/14/22 05/03/24 mcg/actuation nasal spray,suspension omeprazole 20 mg capsule,delayed 20 mg PO DAILY 02/14/22 05/03/24 release sertraline 50 mg tablet 50 mg PO DAILY 02/14/22 05/03/24 albuterol sulfate 90 mcg/actuation 2 puff inhalation 03/21/23 11/02/23 aerosol inhaler amlodipine 2.5 mg tablet 2.5 mg PO DAILY 03/21/23 05/03/24 glipizide 2.5 mg tablet, extended 2.5 mg PO DAILY 03/21/23 05/03/24 release 24 hr hydrochlorothiazide 12.5 mg tablet 12.5 mg PO DAILY 03/21/23 05/03/24 lisinopril 40 mg tablet 40 mg PO DAILY 03/21/23 05/03/24 nitrofurantoin 1 cap PO BID 10/27/23 11/02/23 monohydrate/macrocrystals 100 mg capsule trazodone 50 mg tablet 50 mg PO QPM 10/27/23 05/03/24 Previous Rx's ?Medication ?Instructions ?Recorded meloxicam 15 mg tablet 15 mg PO QDAY PRN pain #30 tabs 04/18/23 diazepam 5 mg tablet (Valium) 5 mg PO QHS PRN sedation #2 tabs 05/08/23 acetaminophen 500 mg capsule 500 - 1,000 mg (1 - 2 x 500 mg) PO 06/20/23 Q6H PRN #100 caps aspirin 81 mg tablet,delayed 81 mg PO BID #50 tabs 06/20/23 release Allergies Allergy/AdvReac Type Severity Reaction Status Date / Time morphine Allergy Unknown Verified 05/03/24 20:23 Review of Systems Status of ROS: Reports: 6 or more systems reviewed and unremarkable except as noted in History and below [facility] Medical History Pancreatitis ?K85.90 - Acute pancreatitis without necrosis or infection, unspecified (ICD-10) Tendinitis involving right hip abductors ?M76.891 - Other specified enthesopathies of right lower limb, excluding foot (ICD-10) Greater trochanteric bursitis of right hip ?M70.61 - Trochanteric bursitis, right hip (ICD-10) Hypercholesterolemia ?E78.00 - Pure hypercholesterolemia, unspecified (ICD-10) Dysphagia ?R13.10 - Dysphagia, unspecified (ICD-10) Dyspepsia ?R10.13 - Epigastric pain (ICD-10) Diverticulitis ?K57.92 - Diverticulitis of intestine, part unspecified, without perforation or abscess without bleeding (ICD-10) Depression ?F32.A - Depression, unspecified (ICD-10) Barretts esophagus ?K22.70 - Luu's esophagus without dysplasia (ICD-10) Diabetes ?E11.9 - Type 2 diabetes mellitus without complications (ICD-10) GERD (gastroesophageal reflux disease) ?K21.9 - Gastro-esophageal reflux disease without esophagitis (ICD-10) Hypertension ?I10 - Essential (primary) hypertension (ICD-10) Encounter for screening laboratory testing for severe acute respiratory syndrome coronavirus 2 (SARS-CoV-2) ?Z20.822 - Contact with and (suspected) exposure to COVID-19 (ICD-10) Surgical History History of vaginal hysterectomy ?Z90.710 - Acquired absence of both cervix and uterus (ICD-10) History of arthroscopy of left shoulder ?Z98.890 - Other specified postprocedural states (ICD-10) Status post blepharoplasty of both eyes (12/02/21) ?Z98.890 - Other specified postprocedural states (ICD-10) Fissure, anal (~2020) ?K60.2 - Anal fissure, unspecified (ICD-10) History of carpal tunnel surgery of right wrist (05/27/20) ?Z98.890 - Other specified postprocedural states (ICD-10) History of breast surgery ?Z98.890 - Other specified postprocedural states (ICD-10) History of hernia repair ?Z98.890 - Other specified postprocedural states (ICD-10) ?Z87.19 - Personal history of other diseases of the digestive system (ICD-10) History of trigger finger (03/10/21) ?Z87.39 - Personal history of other diseases of the musculoskeletal system and connective tissue (ICD-10) History of carpal tunnel surgery of left wrist (03/10/21) ?Z98.890 - Other specified postprocedural states (ICD-10) History of cholecystectomy ?Z90.49 - Acquired absence of other specified parts of digestive tract (ICD-10) Family History Brother COPD (chronic obstructive pulmonary disease) Coronary artery disease Prostate cancer Diabetes Sister Colon cancer Coronary artery disease Social History Narrative: She is about 4 years ago. She lives with her daughter and son-in-law in [place]. They have a 3 level house and she lives in the lower level. She has 5 steps to get into the lower level. She has a walk-in shower. She does not smoke. She does not drink alcohol. Her daughter Paris is healthcare power of attorney recruiter What is your current living situation?: I presently have a place to live Problems where you live: no known problems In the past 12 months, utilities in danger of being shut off: no In past 12 months, lack of transportation kept you from medical appts, meetings, work, or getting things needed for daily living: no In the past 12 mos, have been you worried that your food would run out before you had money to buy more?: never true In the past 12 mos, the food you bought just didn't last and you didn't have money to buy more?: never true Highest level of school completed/degree received: high school graduate Smoking Status: Never smoker Do you use any of these nicotine containing products: None Second hand tobacco smoke exposure: No How often do you have a drink containing alcohol: never How often do you have six or more drinks on one occasion: Never AUDIT-C Alcohol total score: 0 Non-prescribed substance use: denies use Caffeine: Yes (coffee) Are you now , , , , never or living with a partner: Social isolation score (0-1 are the most socially isolated patients): 0 How often does anyone, including family, friends and others, physically hurt you: never How often does anyone, including family, friends and others, insult or talk down to you: never How often does anyone, including family, friends and others, threaten you with harm: never How often does anyone, including family, friends and others, scream or curse at you: never Exam Const: Vital Signs, click to edit/add: Vital Signs - 24 hr 05/03/24 20:16 05/03/24 21:00 05/03/24 21:13 Temperature 98.6 F Pulse Rate 96 Pulse Rate [Pulse Oximeter] 106 H Respiratory Rate 28 H Blood Pressure [Ri ght Upper Arm] 132/71 Pulse Oximetry 90 94 93 Oxygen Delivery Me thod Room Air Nasal Cannula Nasal Cannula Oxygen Flow Rate 2 2 05/03/24 21:15 05/03/24 21:44 05/03/24 21:45 Temperature Pulse Rate 91 103 H 100 Pulse Rate [Pulse Oximeter] Respiratory Rate Blood Pressure [Ri ght Upper Arm] Pulse Oximetry 93 91 93 Oxygen Delivery Me thod Nasal Cannula Nasal Cannula Nasal Cannula Oxygen Flow Rate 2 2 2 Eloy is a very pleasant 79-year-old female with harsh sounding cough, she is alert, interactive, no apparent distress but does seem mildly dyspneic. Is speaking in short phrases. Cheeks are flushed, no rash. Pupils are equal round, sclera clear. Neck supple, note no masses. She is able to sit up, she has coarse lung sounds, coarse lung sounds are heard throughout, really do not hear any underlying true wheezing or crackles but just significant course breathing. CV regular but mildly fast, cannot hearing underlying murmur. Abdomen is soft, nontender, do not feel any masses. She has no pretibial edema, no calf tenderness. When I am talking to her, her pulse oximetry is 86-87% with a good waveform. Documenting provider has reviewed patient's vital signs: yes Course Course ED Course: Did let nursing staff know that her O2 sats were 86-87% as I am talking to her, have asked for a DuoNeb an oxygen. This patient has no history of cardiopulmonary issues per her report. We will be getting a chest CT PE protocol, full complement of labs. She has had reportedly 3 COVID swabs at a been negative. Will see what we can find in her history. She states she had a chest x-ray yesterday. Reviewed with her that will be doing a chest CT. Will hopefully help figure out why she is feeling poorly. My initial gas is that this is likely pneumonia but will just rule out concomitant pulmonary embolus with chest CT imaging. She is also hypoxic, lung sounds very coarse with poor aeration. Reevaluation(s) Time of Reevaluation #1: 20:56 Reevaluation #1: Patient is taking her DuoNeb, it is helping her cough up some greenish bloody phlegm. It is more blood tinge than elif blood that I am seeing. We did also apply oxygen, she is breathing easier, lung sounds are still somewhat coarse but do hear better aeration. Consultations Consultation #1: Did give Dr. Guerrero a heads up on this patient. Radiology is currently reading her CT scan, will have definitive plan for her once we have seen that report. 9:51 p.m.: Did update Dr. Guerrero on the CT findings consistent with pneumonia, no PE. Will initiate Rocephin and 500 oral azithromycin. Discussed steroids but will hold on this, he will assess 1st. Patient will be updated. Time: 21:47 Vital Signs Vital signs: Initial Vital Signs Temperature 98.6 F 05/03/24 20:16 Temperature Source Temporal Artery Scan 05/03/24 20:16 Pulse Rate 106 H 05/03/24 20:16 Respiratory Rate 28 H 05/03/24 20:16 Blood Pressure 132/71 05/03/24 20:16 Blood Pressure Mean 91 05/03/24 20:16 Blood Pressure Position Sitting 05/03/24 20:16 Pulse Oximetry 90 05/03/24 20:16 Oxygen Delivery Method Room Air 05/03/24 20:16 Vital Signs Temperature 98.6 F 05/03/24 20:16 Pulse Rate 106 H 05/03/24 20:16 Respiratory Rate 28 H 05/03/24 20:16 Blood Pressure 132/71 05/03/24 20:16 Pulse Oximetry 90 05/03/24 20:16 Oxygen Delivery Method Room Air 05/03/24 20:16 Temperature 98.6 F 05/03/24 20:16 Pulse Rate 100 05/03/24 21:45 Respiratory Rate 28 H 05/03/24 20:16 Blood Pressure 132/71 05/03/24 20:16 Pulse Oximetry 93 05/03/24 21:45 Oxygen Delivery Method Nasal Cannula 05/03/24 21:45 Oxygen Flow Rate 2 05/03/24 21:45 Medications Administered Medications: Discontinued Medications Generic Name Dose Route Start Last Admin Trade Name Freq PRN Reason Stop Dose Admin Albuterol/Ipratropium 1 neb 05/03/24 21:28 05/03/24 21:57 Iprat-Albut 0.5-2.5 Mg/3 Ml Neb IH 05/03/24 21:29 1 neb ONCE ONE Administration MDM - SOB/Dyspnea Medical Records Attestation: I reviewed the patient's medical records. Medical records narrative: Creatinine was 0.85 with an estimated GFR of 70 yesterday at [place] ED. her diagnosis was bronchitis with malaise and fatigue. She was also in the ER on April 30, was diagnosed with wheezing. She has prior history of hypertension, history of idiopathic acute pancreatitis. Hyperlipidemia, morbid obesity, type 2 diabetes. History of diverticulitis, history of reflux esophagitis. History of iron deficiency anemia. History of depression. History of left lower lobe pneumonia. History of mixed stress and urge urinary incontinence. Lab Data Attestation: I reviewed the patient's lab results. Labs: Lab Results 05/03/24 Range/Units 21:05 WBC 17.29 H (4.50-11.00) K/uL RBC 3.72 L (4.00-5.20) m/uL Hgb 11.4 L (12.0-16.0) gm/dL Hct 33.8 (33.0-51.0) % MCV 91 (80-100) fL MCH 31 (26-34) pg MCHC 34 (32-36) gm/dL RDW Coeff of Felicia 13.2 (11.5-15.5) % Plt Count 244 (140-440) K/uL Neut % (Auto) 82.7 H (42.0-72.0) % Lymph % (Auto) 13.2 L (20-44) % [place] % (Auto) 3.0 (0.0-11.0) % Eos % (Auto) 0.0 (0.0-7.0) % Baso % (Auto) 0.1 (0.0-3.0) % Neut # (Auto) 14.30 H (1.7-7.0) K/uL Lymph # (Auto) 2.30 (0.90-2.90) K/uL [place] # (Auto) 0.50 (0.00-0.90) K/UL Eos # (Auto) 0.00 (0.00-0.50) K/uL Baso # (Auto) 0.00 (0.00-0.30) K/uL Abs Immat Gran (auto) 0.20 (0.00-0.30) K/uL Imm/Tot Granulo (auto) 1.0 % INR 1.34 H (0.91-1.10) APTT 35 H (23-33) Seconds D-Dimer Quant (PE/DVT) 0.89 H (0.00-0.50) ug/ml VBG pH 7.447 H (7.32-7.43) VBG pCO2 38 L (40-50) mmHG VBG pO2 44.9 (25-47) mmHG VBG HCO3 26 (21-28) mmol/L Sodium 125 L (135-149) mmol/L Potassium 3.4 L (3.6-5.1) mmol/L Chloride 91 L (96-114) mmol/L Carbon Dioxide 25 (20-32) mmol/L Anion Gap 9 (7-15) mEq/L BUN 24 (7-30) mg/dL Creatinine 0.9 (0.5-1.5) mg/dL Estimated Creat Clear 36.67 Estimated GFR 65 ml/min Glucose 189 H (60-115) mg/dL Lactate 2.0 H (0.5-1.9) mmol/L Calcium 8.8 (8.4-10.6) mg/dL Total Bilirubin 0.9 (0.1-1.5) mg/dL AST 28 (12-35) U/L ALT 25 (4-35) U/L Alkaline Phosphatase 58 (40-150) U/L Troponin I < 0.01 L (0.01-0.04) ng/mL C-Reactive Protein Cancelled NT-Pro-B Natriuret Pep 1590 pg/mL Total Protein 7.3 (6.0-8.3) g/dL Albumin 4.0 (3.3-5.0) g/dL Procalcitonin 3.41 H (<0.50) ng/mL Imaging Data CT scan - chest: Attestation: I have reviewed the pertinent imaging results. My impression: Did visualize her chest CT, do see consolidations on the right side. Await Radiology over-read. Radiologist's impression: Patient: ELOY WILKERSON Facility:?[facility] Patient ID:?[id number] Site Patient ID:?[id number]. Site :?[id number] Study:?CT-Chest Angio W/ 95CC ISOVUE-370 PE PROTOCOL-05/03/2024 9:41:00 PM Ordering Physician:Felipa Wang Final Report: INDICATION: Tachycardia. Hemoptysis. TECHNIQUE: Axial intravenously infused CT cuts were performed from the thoracic inlet to the upper abdomen during the peak phase of pulmonary arterial contrast opacification. 95 mL of Isovue 370 has been injected intravenously. FINDINGS: There are no pulmonary emboli. There is no aortic aneurysm or dissection. There is dense consolidation within the right middle and lower lobes. The left lung is clear. There are no pleural or pericardial fluid collections. There are no enlarged hilar, mediastinal or axillary lymph nodes. There is a moderate hiatal hernia. The visualized liver, spleen, pancreas, adrenal appear normal. There is a 3.5 cm cortical cyst at the upper pole of the left kidney. There are there are no lytic or sclerotic skeletal lesions. IMPRESSION: 1. Negative for pulmonary emboli. 2. Dense consolidation within the middle and lower lobes of the right lung consistent with pneumonia. 3. Moderate hiatal hernia. Please note that all CT scans at this facility use dose modulation, iterative reconstruction, and/or weight-based dosing when appropriate to reduce radiation dose to as low as reasonably achievable. Dictated by Blaise Soler MD @ 05/03/2024 9:47:07 PM (Electronic Signature) ECG Data Attestation: I personally reviewed and interpreted this ECG as follows: (Normal sinus rhythm, 95 beats per minute. No ischemia, no infarct.) ECG interpretation date: 05/03/24 ECG interpretation time: 21:53 Discharge Plan Discharge Clinical Impression: Hypoxia Community acquired pneumonia Qualifiers: Laterality: right Lung location: unspecified part of lung Qualified Code(s): J18.9 - Pneumonia, unspecified organism Prescriptions: No Action sertraline 50 mg tablet 50 mg PO DAILY fluticasone propionate 50 mcg/actuation spray,suspension 2 spray intranasal DAILY estradiol 0.01 % (0.1 mg/gram) cream 1 g vaginal DAILY omeprazole 20 mg capsule,delayed release(DR/EC) 20 mg PO DAILY calcium polycarbophil [FiberCon] 625 mg tablet 1,250 mg PO QDAY clobetasol 0.05 % cream 1 topical BID Rx Instructions: APPLY SPARINGLY TO AFFECTED AREA atorvastatin 80 mg tablet 80 mg PO .Bedtime glucosamine-chondroitin 900 mg tablet 900 mg PO QDAY calcium-vitamin D2-iron Tablet 1 tab PO QDAY glipizide 2.5 mg tablet extended release 24hr 2.5 mg PO DAILY hydrochlorothiazide 12.5 mg tablet 12.5 mg PO DAILY lisinopril 40 mg tablet 40 mg PO DAILY amlodipine 2.5 mg tablet 2.5 mg PO DAILY albuterol sulfate 90 mcg/actuation HFA aerosol inhaler 2 puff inhalation nitrofurantoin monohyd/m-cryst 100 mg capsule 1 cap PO BID trazodone 50 mg tablet 50 mg PO QPM meloxicam 15 mg tablet 15 mg PO QDAY PRN (Reason: pain) Qty: 30 3RF aspirin 81 mg tablet,delayed release (DR/EC) 81 mg PO BID Qty: 50 0RF Rx Instructions: Medication to help prevent blood clots postoperatively; take TWICE daily. acetaminophen 500 mg capsule 500 - 1,000 mg PO Q6H MDD 4000mg PRNQty: 100 0RF diazepam [Valium] 5 mg tablet 5 mg PO QHS PRN (Reason: sedation) Qty: 2 0RF Rx Instructions: take 1 tablet a half hour prior to the MRI, may repeat x1 Follow Up/Referrals: Gabby Dupree PA-C [Primary Care Provider] -
--- OUTSIDE RECORDS SUMMARY | 2024-05-03 21:03 | XMS_ITS | Clinical Summary ---
Author Organization [facility] Address [address] [place] [address] Care Team Providers Care Retirement Administrator Name Role Phone Gabby Dupree P.A.-C. Primary Care Provider [phone] Source Comments Patient records contain information from all sites at [facility]. For routine questions regarding patient records, call [phone] during business hours, M-F 8:00 AM - 5:00 PM Central Time. Record requests for emergency care only can be directed to [phone] at any time.[facility] Allergies Active Allergy Reactions Criticality Noted Date Comments Morphine Itching Low 04/28/2011 Medications * This document contains information received from the source organization and may not represent a complete record from that organization. CALCIUM CARB/VIT D3/MINERALS (CALCIUM-VITAMIN D ORAL) Take 1 tablet by mouth 2 (two) times a day. 05/13/20 [address] tablet Take 81 mg by mouth daily. Active albuterol (ProAir HFA) 90 mcg/actuation inhaler Inhale 2 puffs every 4 (four) hours as needed for wheezing or shortness of breath. 25.5 g 3 12/18/19 22 Active fluticasone propionate (FLONASE) 50 mcg/actuation nasal spray Administer 2 sprays into each nostril daily. 48 g 3 05/03/20 22 Active Additional Information Patient taking differently:2 spray each nostrilAs needed, Informant: Self, Reported on 11/16/2022 iron,carbonyl-vitam in C (VITRON-C) 65 mg iron- [address] tablet Take 65 mg of iron by mouth every other day. Do not crush or chew. Active loperamide (IMODIUM A-D) 2 mg capsule Take 4 mg by mouth 4 (four) times a day as needed for diarrhea. 09/29/19 24 Active omeprazole (PriLOSEC) [address] capsule TAKE 1 CAPSULE(20 MG) BY MOUTH EVERY DAY 90 capsule 10/12/19 24 Active lisinopriL (PRINIVIL,ZESTRIL) 40 mg tablet TAKE 1 TABLET(40 MG) BY MOUTH DAILY 90 tablet 3 10/12/19 24 Active atorvastatin (LIPITOR) 80 mg tablet TAKE 1 TABLET(80 MG) BY MOUTH DAILY 90 tablet 10/12/19 24 Active hydroCHLOROthiazide 12.5 mg tablet TAKE 1 TABLET(12.5 MG) BY MOUTH DAILY 90 tablet 10/12/19 24 Active glipiZIDE (GLUCOTROL XL) 2.5 mg 24 hr tablet Take 1 tablet (2.5 mg total) by mouth daily. 90 tablet 10/12/19 24 Active sennosides (senna) 8.6 mg tablet Take 8.6 mg by mouth every other day. Active clobetasoL (TEMOVATE) 0.05 % ointmentIndications :Lichen Sclerosus Apply topically 2 (two) times a day. 60 g 3 10/25/19 24 Active estradioL (Estrace) 0.1 mg/g (0.01%) vaginal creamIndications:At rophy Vagina Due To Estrogen Deficiency Insert 1 g into the vagina 3 (three) times a week. 42.5 g 1 10/25/19 24 025 Active traZODone (DESYREL) 50 mg tablet Take 1 tablet (50 mg total) by mouth at bedtime as needed for sleep. 90 tablet 3 11/10/19 24 Active amLODIPine (NORVASC) 5 mg tablet Take 1 tablet (5 mg total) by mouth daily. 90 tablet 11/10/19 24 Active sertraline (ZOLOFT) 100 mg tablet Take 1 tablet (100 mg total) by mouth daily. 90 tablet 11/10/19 24 Active blood sugar diagnostic strips (Blood Glucose Test Strips) Check blood sugars 1 time daily. 100 strip 3 01/18/20 24 Active amoxicillin (AmoxiL) 500 mg capsule Take 4 capsules (2,000 mg total) by mouth as needed (30-60 min prior to dental procedure). 4 capsule 2 01/18/20 24 Active ciprofloxacin (Cipro) 500 mg tabletIndications:D iarrhea Escherichia Coli Enteropathogenic Take 1 tablet (500 mg total) by mouth 2 (two) times a day. 14 tablet 04/20/20 24 Active nirmatrelvir-ritona vir (Paxlovid) 300 mg (150 mg x 2)-100 mg dose pack Take 300 mg nirmatrelvir (two 150 mg tablets) with 100 mg ritonavir (one 100 mg tablet), with all three tablets taken together twice daily for 5 days. 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 Biopsies esophagus returned normal. Colonoscopy with 2 tubular adenomas <1 cm. Is recommend that she have repeat colonoscopy in 5 years for surveillance. Endoscopy only be repeated as needed. -Patient has continued with iron supplement every other day. Acute Vaginitis 03/14/2023 Overview (03/14/2023): Increased burning and irritation since recent antibiotic use. May be due to lichen sclerosis or an infection. Vaginitis panel today to exclude infection. Sclerosis Aortic Valve 11/01/2022 Overview (11/01/2022): Echo 12/30/20 Body Mass Index 40.0 To 44.9 Adult 07/29/2022 Morbid Severe Obesity Due To Excess Calories Constipation 05/19/2019 Incontinence Urinary Stress And Urge 04/02/2018 Overview (09/05/2023): She is being effectively managed with PTNS for her urge incontinence. Recommend follow-up in 1 month. Atrophy Vagina Due To Estrogen Deficiency 2017 Overview (03/14/2023): Estrace cream vaginally 3 times weekly. Encouraged to continue use of this. Lichen Sclerosus 06/26/2017 Overview (03/14/2023): Symptoms worse when she does not use clobetasol and with antibiotic use, exam stable. No areas concerning for vulvar carcinoma. Continue Clobetasol ointment to the vulva twice weekly at bedtime. Discussed the importance of this. Will reassess vulva where ecchymosis noted when she returns for PTNS. 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 Higher doses of hydrochlorothiazide have resulted in hyponatremia. -Amlodipine 2.5 mg daily added 11/01/2022. -Amlodipine increased to 5 mg daily 04/2023 Reflux Esophageal 04/28/2011 Overview (11/01/2022): Maintained on omeprazole 20 mg daily. Hypercholesterolemia 04/28/2011 Overview (11/01/2022): Maintained on atorvastatin 80 mg daily Diabetes Mellitus Type 2 Hyperglycemia Resolved Problems Problem Noted Date Diagnosed Date Resolved Date Idiopathic Aseptic Necrosis Right Femur 11/06/2023 12/20/2023 Elevated Blood Pressure 08/29/2022 02/2 01/2023 Fatigue 08/18/2022 11/10/2023 Urgency Urinary 01/01/2018 07/29/2022 Fissure Perineal Female 01/01/201811/08 Pneumonia Lobar 10/14/2016 11/30/2020 Idiopathic Acute Pancreatiti s Without Necrosis Or Infection 10/11/2016 11/30/2020 Sprue Celiac 12/04/2015 04/17/2019 Diverticulitis Of Large Inte basilia Without Perforation Or Abscess Without Bleeding 09/20/2012 11/30/2020 Encounters Date Type Department Care Team Description 04/20/2024 Documentation Department of Family Medicine, [facility], in [place], [place] [address] [place] [phone] Himanshu Barry M.D. 04/19/2024 1:20 PM CDT - 04/19/2024 11:59 PM CDT Hospital Encounter Department of Laboratory Medicine in [address] [address] Enrique Schumacher P.A.-C. Diarrhea Discharge Disposition: Home or Self Care 04/19/2024 Clinical Communication Department of Family Medicine, [facility], in [address] [phone] Gabby Dupree, PElaineA.-C. After Visit Question (Diarrhea) 04/17/2024 2:31 PM CDT - 04/17/2024 11:59 PM CDT Hospital Encounter Department of Radiology in [address] [address] Enrique Schumacher, P.A.-C. Diarrhea Discharge Disposition: Home or Self Care 04/17/2024 2:12 PM CDT - 04/17/2024 2:30 PM CDT Hospital Encounter Department of Laboratory Medicine in [place], [place] [address] [place] [phone] Enrique Schumacher P.A.-C. Diarrhea Discharge Disposition: Home or Self Care 04/17/2024 1:50 PM CDT - 04/17/2024 2:11 PM CDT Hospital Encounter Department of Laboratory Medicine in [place], [place] [address] [place] [address] Enrique Schumacher P.A.-C. Diarrhea Discharge Disposition: Home or Self Care 04/17/2024 1:00 PM CDT Office Visit Department of Family Medicine, [facility], in [place], [place] [address] [place] [address] Enrique Schumacher P.A.-C. Diarrhea (Primary Dx); Sclerosis Aortic Valve 04/17/2024 11:34 AM CDT - 04/17/2024 11:59 PM CDT Hospital Encounter Department of Laboratory Medicine, [facility], in [place], [place] [address] [place] [address] Enrique Schumacher P.A.-C. Discharge Disposition: Home or Self Care 03/05/2024 2:45 PM CDT Office Visit Department of Ophthalmology in [address] [phone] Zaki Blevins Jr., M.D. Presbyopia (Primary Dx) 02/20/2024 Clinical Communication Department of Ophthalmology in [address] [address] Zaki Blevins Jr., M.D. from Last 3 Months Immunizations Name Administration Dates Next Due DT, Pediatric 09/27/2000 H1N1 Inj 07/31/2009 HZV (ZOSTAVAX) 03/25/2012 HepB, Unspecified 05/07/2003,04/07/2003,10/06/19 03 Influenza TIV (IM) 04/01/2016 Influenza high dose QV(65 ye ars or older) (PF) 04/10/2022,03/08/2021,04/14/2020 Influenza, Seasonal, Injectable 11/06/19 24(Deferred: Patient decision),04/19/2014,03/25/2012, 006 Influenza, Unspecified 03/30/2017,2015,05/05/2015,2013,04/02/2013,03/25/2012,04/15/2011,0 03/18/2010 PCV13 05/08/2015 PPSV23 04/27/2012 RZV (SHINGRIX) 08/06/2019,04/10/2019 SARS-COV-2 (COVID-19) - PFIZ ER (Discontinued)(12 years or older) 11/06/2023(Deferred: Patient decision),08/30/2021(Deferred: Patient Refused) Tdap 07/29/2022,04/27/2012 influenza trivalent high dos e (HD)(PF) 04/03/2019,03/29/2018,03/30/2017,2015,05/05/2015 influenza trivalent vaccine (6 months and older)(PF) 03/18/2010 influenza vaccine quad (FLUZ ONE) (6 months-35 months) (PF) 04/01/2013 Family History Medical History Relation Name Comments Coronary artery disease Brother 1 Chuckie Diabetes Brother 1 Chuckie Heart valve replacement Brother 1 Chuckie Hyperlipidemia Brother 1 Chuckie Hypertension Brother 1 Chuckie Prostate cancer Brother 1 Chuckie metastasized Testicular cancer Brother 1 Chuckie COPD Brother 2 Vince Coronary artery disease Brother 2 Vince Diabetes Brother 2 Vince Diabetes mellitus type II Brother 2 Vince Heart attack Brother 2 Vince heart attack age 74 Hyperlipidemia Brother 2 Vince Hypertension Brother 2 Vince Melanoma Brother 2 Vince Skin cancer Brother 2 Vince Sleep apnea Brother 2 Vince Nephrolithiasis Daughter [place] Hemorrhagic stroke Father Calvin Retinal detachment Mother Miriam Ruptured aneurysm of aorta Mother Miriam Colon cancer Sister 1 sherice Dementia Sister 2 lio Diabetes Sister 2 lio Hyperlipidemia Sister 2 lio Hypertension Sister 2 loi Stroke Sister 2 lio Arthritis Sister 3 george Colon cancer Sister 3 george Depression Sister 3 george Melanoma Sister 3 george Skin cancer Sister 3 george Alcohol abuse Sister 4 ajay Hyperlipidemia Sister 4 ajay Hypertension Sister 4 ajay Coronary artery disease Sister 5 rubia Fibromyalgia Sister 5 rubia Hyperlipidemia Sister 5 rubia Hypertension Sister 5 rubia Osteoporosis Sister 5 rubia Sleep apnea Sister 5 rubia Stent Sister 5 rubia Arthritis Sister 6 bibi Diabetes Sister 6 bibi Hypertension Sister 6 bibi Sleep apnea Sister 6 bibi Hypertension Son Tello Prostate cancer Son Tello removal Tachycardia Son Tello Amblyopia Neg Hx Blindness Neg Hx Cataracts Neg Hx Corneal Dystrophy Neg Hx Glaucoma Neg Hx Macular degeneration Neg Hx Retinal degeneration Neg Hx Strabismus Neg Hx Vision loss Neg Hx Relation Name Status Comments Brother 1 Chuckie Brother 2 Vince Daughter [place] Alive Father Calvin (Age 49) Mother Miriam (Age 69) of ru ptured aortic aneurysm Sister 1 sherice (Age 44) of co kirill cancer Sister 2 lio Sister 3 george Alive Sister 4 ajay Alive Sister 5 rubia Alive Sister 6 bibi Alive Son Tello Alive Social History Tobacco Use Types Packs/Day Years Used Date Smoking Tobacco: Never Smokeless Tobacco: Never Tobacco Cessation:Counseling Given: Not Answered Alcohol Use Standard Drinks/Week Comments Never 0 (1 standard drink = 0.6 oz pur e alcohol) [facility] Utilities Answer Date Recorded In the past 12 months has e electric, gas, oil, or water [employer] threatened to shut off services in your home? No 11/06/2023 Humiliation, Afraid, Rape, and Kick questionnair e Answer Date Recorded Within the last year, have y ou been afraid of your partner or ex-partner? No 07/29/2022 Within the last year, have y ou been humiliated or emotionally abused in other ways by your partner or ex-partner? No Within the last year, have y ou been kicked, hit, slapped, or otherwise physically hurt by your partner or ex-partner? No 07/29/2022 Within the last year, have y ou been raped or forced to have any kind of sexual activity by your partner or ex-partner? No 07/29/2022 Social Connection and Isolat ion Panel [NHANES] Answer Date Recorded In a typical week, how many times do you talk on the phone with family, friends, or neighbors? More than three times a week 07/29/2022 How often do you get togethe r with friends or relatives? Three times a week 07/29/2022 How often do you attend chur or advent services? More than 4 times per year 07/29/2022 Do you belong to any clubs o r organizations such as adventism groups, unions, fraternal or athletic groups, or school groups? No 07/29/2022 How often do you attend meet ings of the clubs or organizations you belong to? Never 07/29/2022 Are you , , di vorced, , never , or living with a partner? 07/29/2022 AUDIT-C Answer Date Recorded Q1: How often do you have a drink containing alc ohol? Never 07/29/2022 Average Number of Drinks Not on file 023 Frequency of Binge Drinking Not on file 07/11 Overall Financial Resource Strain (CARDIA) Answe r Date Recorded How hard is it for you to pa y for the very basics like food, housing, medical care, and heating? Not hard at all 07/29/2022 PHQ-2 Answer Date Recorded PHQ-2 Score 0 11/06/2023 [facility] - Occupational Stress Questionnaire Answer Date Recorded Do you feel stress - tense, restless, nervous, or anxious, or unable to sleep at night because your mind is troubled all the time - these days? Only a little 07/29/2022 Exercise Vital Sign Answer Date Recorde d On average, how many days pe r week do you engage in moderate to strenuous exercise (like a brisk walk)? 3 days 11/06/2023 On average, how many minutes do you engage in exercise at this level? 30 min 11/06/2023 Hunger Vital Sign Answer Date Recorded Within the past 12 months, y ou worried that your food would run out before you got the money to buy more. Never true 11/06/19 24 Within the past 12 months, t he food you bought just didn't last and you didn't have money to get more. Never true 11/06/2023 PRAPARE - Transportation Answer Date Re corded In the past 12 months, has l ack of transportation kept you from medical appointments or from getting medications? No 10/09 In the past 12 months, has l ack of transportation kept you from meetings, work, or from getting things needed for daily living? No 11/06/2023 Depression Answer Date Recor ded PHQ-9 Total Score (max 27) 2 07/21 Nutrition Answer Date Recorded On average, how many serving s of fruits and vegetables do you eat per day (serving size is equal to 1 cup or approximately the size of a tennis ball)? 3-5 11/06/2023 Dental Answer Date Recorded Dental: Regular Dentist Yes 01/16/20 21 Employment Answer Date Recorded Employment status Retired 11/06/2023 Housing Stability Answer Date Recorded What is your living situation today? I have a [facility] place to live 11/06/2023 Education Answer Date Recorded What is the highest level of school you have completed or the highest degree you have received? 12th grade 04/17/2019 Comments No Sex and Gender Information Value Date Recorded Sex Assigned at Female 03/05/2023 3:59 PM CDT Legal Sex Female 8:30 AM CONSERVATION SCIENTIST Gender Identity Female 10/16/2018 8:13 AM CDT Sexual Orientation Straight 10/16/2018 8: 13 AM CDT Last Filed Vital Signs Vital Sign Reading Time Taken Comments Blood Pressure 132/81 04/17/2024 12:57 PM CDT Pulse 78 04/17/2024 12:57 PM CDT Temperature 36.1 ??C (96.9 ??F) 04/17/2024 12:57 PM C DT Respiratory Rate 16 04/17/2024 12:57 PM CDT Oxygen Saturation 92% 11/06/2023 9:59 AM CDT Inhaled Oxygen Concentration - - Weight 104 kg (229 lb 4.5 oz) 04/17/2024 12:57 P M CDT Height 153.3 cm (5' 0.35) 04/17/2024 12:57 PM C DT Body Mass Index 44.25 04/17/2024 12:57 PM CDT Plan of Treatment Upcoming Encounters Date Type Department Care Team (Latest Contact Info) Description 05/14/2024 11:10 AM CONSERVATION SCIENTIST Appointment Department of Laboratory Medicine in [place], [place] [address] [place] [phone] Gabby Dupree, PElaineAElaine-CElaine [address] [place] [phone] 05/17/2024 11:00 AM CONSERVATION SCIENTIST Comprehensive Visit Department of Family Medicine, [facility], in [place], [place] [address] [place] [phone] Gabby Dupree P.A.-C. [address], [place] [address] 07/16/2024 9:15 AM CONSERVATION SCIENTIST Comprehensive Visit Department of Ophthalmology in [place], [place] [address], [place] [address] Zaki Blevins Jr., M.D. [address] [place] [address] Health Maintenance Due Date Last Done Comments CT Colonography 1945 Cologuard 1945 Hepatitis C Screening 1945 Hepatitis B Vaccines (3 of 3 - Risk 3-dose series) 07/02/2003 05/07/2003, 04/07/2003, 10/05/2002 RSV vaccine - (32-3 6 weeks) or 60+ years (1 - 1-dose 75+ series) 2021 Depression Monitoring (PHQ-9) 11/19/2023 07/21/2023 COVID-19 Vaccine ( - 2023-2 5 season) 2024 Influenza Vaccine (#1) 2024 , 03/08/2021, 04/14/2020, Additional history exists Hemoglobin A1C 05/07/2024 11/06/2023, 04/10, 10/27/2022, Additional history exists Dilated Eye Exam 07/14/2024 07/14/2023, 09/2022, 06/20/2022, Additional history exists Urine Albumin 11/05/2024 11/06/2023, 10/09, 10/14/2021, Additional history exists Visit: Medicare Annual Wellness 11/06/2024 Diabetic Office Visit with F oot Exam 11/09/2024 11/10/2023, 01/17/2022, 11/30/2020 Visit: Chronic Disease, age 18+ 01/15/2025 4, 11/10/2023 Office Visit for Blood Press ure Check / Re-check 04/17/2025 04/17/2024 Creatinine Level (Kidney Fun ction Test) 05/02/2025 05/02/2024, 04/17/2024, 11/06/2023, Additional history exists Potassium Level 05/02/2025 05/02/2024, 0 03/2024, 11/06/2023, Additional history exists Sodium Level 05/02/2025 05/02/2024, 100 03/2024, 11/06/2023, Additional history exists Colonoscopy 11/09/2027 11/08/2022, 09/2019, 05/14/2015, Additional history exists Colorectal Cancer Surveillance 11/09/2027 DTaP,Tdap,and Td Vaccines (4 - Td or Tdap) 07/29/2032 07/29/2022, 04/27/2012, 09/27/2000 Pneumococcal vaccine (65+ years) Completed 05/08/20, 04/27/2012 Zoster Vaccines Completed 08/06/2019, 08/2018, 03/25/2012 Mammogram Discontinued 09/11/2023, 07/10, 06/17/2021, Additional history exists Fall Risk Screen (Annual) Completed 11/06/2023 Medical Devices Implanted Type Area Code Inspector Device Identifier Shelf Expiration Date Model / Serial / Lot Hip Implant Hip Implant Right: Hip Procedures Procedure Name Priority Date/Time Associated Diagnosis Comments GI PATHOGEN PANEL, PCR, F Routine 04/19/2024 2:[address] ABDOMEN PELVIS WITH IV CONTRAST RAD - Semiurgent (Fast; most ED patients; some inpatients) 04/17/2024 4:11 PM CDT Diarrhea LIPASE, S/P Routine 04/17/2024 2:27 PM CDT Diarrhea AMYLASE, TOT, S Routine 04/17/2024 2:27 PM CDT Diarrhea COMPREHENSIVE METABOLIC PANEL, S/P Routine 04/17/2024 2:27 PM CDT Diarrhea CBC WITH DIFFERENTIAL, B Routine 04/17/2024 2:27 PM CDT Diarrhea IN URINALYSIS AUTO WO MICRO Routine 04/17/2024 2:21 PM CDT URINALYSIS WITH MICROSCOPIC IF INDICATED, U Routine 04/17/2024 2:21 PM CDT URINALYSIS WITH MICROSCOPIC IF INDICATED, U Routine 04/17/2024 2:21 PM CDT Diarrhea BACTERIAL CULTURE, AEROBIC + SUSC, URINE Routine 04/17/2024 2:21 PM CDT Diarrhea HEMOGLOBIN A1C, B Routine 11/06/2023 9:2 7 AM CDT Diabetes Mellitus Type 2 Hyperglycemia (HCC) ALBUMIN, RANDOM, U Routine 11/06/2023 9: 24 AM CDT Diabetes Mellitus Type 2 Hyperglycemia (HCC) BI BREAST SCREENING BILATERAL WITH TOMOSYNTHESIS RAD - Routine (most inpatients and all outpatients) 09/11/2023 11:45 AM CONSERVATION SCIENTIST Screening Mammogram Average Risk Patient OPHTHALMOLOGY IMAGE EXAM Routine 07/19/2021 10:10 AM CONSERVATION SCIENTIST from Last 3 Months or Most Recently Relevant to Health Maintenance Results * (ABNORMAL) GI Pathogen Panel, PCR, Feces (04/19/2024 2:37 PM CDT) Specimen Source STOOL 12:59 AM CDT [facility] Campylobacter species Negative Negative 04/20/2024 12:59 AM CDT [facility] C. difficile toxin Negative Negative 2023 12:59 AM CDT [facility] Plesiomonas shigelloides Negative Negative 04/20/2024 12:59 AM CDT [facility] Salmonella species Negative Negative 2023 12:59 AM CDT [facility] Vibrio species Negative Negative 04/20/2024 12:59 AM CDT [facility] Vibrio cholerae Negative Negative 12:59 AM CDT [facility] Yersinia species Negative Negative 04/20/20 12:59 AM CDT [facility] Enteroaggregative E. coli (EAEC) Positive(A) Negative 04/20/2024 12:59 AM CDT [facility] Comment: A positive EAEC result may reflect either asymptomatic carriage or diarrhea caused by EAEC. Enteropathogenic E. coli (EPEC) Negative Negative 04/20/2024 12:59 AM CDT [facility] Enterotoxigenic E. coli (ETEC) Negative Negative 04/20/2024 12:59 AM CDT [facility] Shiga toxin producing E. coli Negative Negative 04/20/2024 12:59 AM CDT [facility] Shigella/Enteroinvas wilmar E. coli Negative Negative 04/20/2024 12:59 AM CDT [facility] Cryptosporidium species Negative Negative 04/20/2024 12:59 AM CDT [facility] Cyclospora cayetanensis Negative Negative 04/20/2024 12:59 AM CDT [facility] Entamoeba histolytica Negative Negative 04/20/2024 12:59 AM CDT [facility] Giardia Negative Negative 04/20/2024 12:59 AM CDT [facility] Adenovirus F40/41 Negative Negative 024 12:59 AM CDT [facility] Astrovirus Negative Negative 04/20/2024 12:59 AM CDT [facility] Norovirus GI/GII Negative Negative 04/20/20 12:59 AM CDT [facility] Rotavirus Ag, F Negative Negative 12:59 AM CDT [facility] Sapovirus Negative Negative 04/20/2024 12:59 AM CDT [facility] Comment: ----ADDITIONAL INFORMATION---- This assay is performed using the FDA-cleared FilmArray GI Panel ([employer] Semi-Urgent This is a semi-urgent result(DODD) [facility] Stool (Stool) 04/19/2024 2:3 7 PM CDT 04/19/2024 9:48 PM CDT us Enrique Schumacher P.A.-C. LAB MICROBIOLOGY - GEN ERAL ORDERABLES Final Result [facility] [address] [place] [address], [facility] [address] [place] [address] * CT Abdomen Pelvis with IV Contrast (04/17/2024 4:11 PM CDT) Anatomical Region Laterality Modality Abdomen, Pelvis, Abdominal R ST LOS, Abdominal ARZ LOS, Abdominal FLA LOS N/A Computed Tomography 04/17/2024 4:14 PM CDT Impressions 04/17/2024 4:27 PM CDT 1. Mild bladder wall thickening and adjacent fat stranding, suggesting cystitis. 2. Otherwise no acute findings in the abdomen or pelvis. Narrative 04/17/2024 4:27 PM CDT EXAM: CT ABDOMEN PELVIS WITH IV CONTRAST COMPARISON: Abdomen and pelvis CT 04/26/2018 FINDINGS: Lower Thorax: Clear lung bases. Liver: Normal liver size and contour. No focal lesion. Gallbladder/bile ducts: Cholecystectomy Pancreas: Coarse calcification of the pancreatic tail, likely sequela of chronic pancreatitis. Spleen: Normal. Adrenal glands: Normal. Kidneys/Ureters: Kidneys are symmetric in size. No hydronephrosis or nephrolithiasis. Simple left renal cysts Gastrointestinal tract: Small to moderate-sized hiatal hernia which is stable. Colonic diverticulosis without evidence of acute diverticulitis. No bowel obstruction or appreciable wall thickening. Normal appendix. Peritoneum/Retroperitoneum: No free air or free fluid. No suspicious nodule or mass. Lymph nodes: No lymphadenopathy. Vascular: Normal caliber abdominal aorta. Normal IVC. Mild atherosclerosis. Pelvis: No free fluid. Mild bladder wall thickening and adjacent fat stranding.Hysterectomy. Musculoskeletal: No acute soft tissue or osseous abnormality.Right total hip arthroplasty. Degenerative changes in the left hip and spine Procedure Note Cb Rios M.D. - 04/17/2024 EXAM: CT ABDOMEN PELVIS WITH IV CONTRAST COMPARISON: Abdomen and pelvis CT 04/26/2018 FINDINGS: Lower Thorax: Clear lung bases. Liver: Normal liver size and contour. No focal lesion. Gallbladder/bile ducts: Cholecystectomy Pancreas: Coarse calcification of the pancreatic tail, likely sequela ofchronic pancreatitis. Spleen: Normal. Adrenal glands: Normal. Kidneys/Ureters: Kidneys are symmetric in size. No hydronephrosis ornephrolithiasis. Simple left renal cysts Gastrointestinal tract: Small to moderate-sized hiatal hernia which isstable. Colonic diverticulosis without evidence of acute diverticulitis.No bowel obstruction or appreciable wall thickening. Normal appendix. Peritoneum/Retroperitoneum: No free air or free fluid. No suspiciousnodule or mass. Lymph nodes: No lymphadenopathy. Vascular: Normal caliber abdominal aorta. Normal IVC. Mildatherosclerosis. Pelvis: No free fluid. Mild bladder wall thickening and adjacent fatstranding.Hysterectomy. Musculoskeletal: No acute soft tissue or osseous abnormality.Right totalhip arthroplasty. Degenerative changes in the left hip and spine IMPRESSION: 1. Mild bladder wall thickening and adjacent fat stranding, suggestingcystitis. 2. Otherwise no acute findings in the abdomen or pelvis. us Enrique Schumacher P.A.-C. IMG CT PROCEDURES Daksha roy Result * (ABNORMAL) CBC with Differential, Blood (04/17/2024 2:27 PM CDT) Hemoglobin 12.3 11.6 - 15.0 g/dL 04/17/2024 2:35 PM CDT OWAT Hematocrit 37.3 35.5 - 44.9 % 04/17/2024 2:35 PM CDT OWAT Erythrocytes 4.00 3.92 - 5.13 x10(12)/L 04/17/2024 2:35 PM CDT OWAT MCV 93.3 78.2 - 97.9 fL 04/17/2024 2:35 PM CDT OWAT RBC Distrib Width 13.1 12.2 - 16.1 % 04/17/2024 2:35 PM CDT OWAT Platelet Count 249 157 - 371 x10(9)/L 04/17/2024 2:35 PM CDT OWAT Leukocytes 10.4(H) 3.4 - 9.6 x10(9)/L 04/17/2024 2:35 PM CDT OWAT Neutrophils 5.27 1.56 - 6.45 x10(9)/L 04/17/2024 2:35 PM CDT OWAT Lymphocytes 4.18(H) 0.95 - 3.07 x10(9)/L 04/17/2024 2:35 PM CDT OWAT Monocytes 0.73 0.26 - 0.81 x10(9)/L 04/17/2024 2:35 PM CDT OWAT Eosinophils 0.19 0.03 - 0.48 x10(9)/L 04/17/2024 2:35 PM CDT OWAT Basophils 0.05 0.01 - 0.08 x10(9)/L 04/17/2024 2:35 PM CDT OWAT Blood (Blood, Venous) 04/17/2024 2:27 PM CDT 04/17/2024 2:29 PM CDT us Enrique Schumacher P.A.-C. LAB BLOOD ADD-ON Final Result Performing Organization Address [facility]/ZIP Co de Phone Number [facility] [address] [place] [address], [facility] OWAT [facility] in [place] [address] [place] [address] * Lipase (04/17/2024 2:27 PM CDT) Lipase, P 33 13 - 60 U/L 04/17/2024 3: 30 PM CDT OWAT Blood (Blood, Venous) 04/17/2024 2:27 PM CDT 04/17/2024 2:29 PM CDT us Enrique Schumacher P.A.-C. LAB BLOOD ADD-ON Final Result [facility] [address], [place] [address], [place] OWAT [facility] in [place] [address] [place] [address] * Amylase, Total (04/17/2024 2:27 PM CDT) Amylase, Total, P 32 28 - 100 U/L 04/17/2024 3:30 PM CDT OWAT Blood (Blood, Venous) 04/17/2024 2:27 PM CDT 04/17/2024 2:29 PM CDT us Enrique Schumacher P.A.-C. LAB BLOOD ADD-ON Final Result [facility] [address] [place] [address], [place] OWAT [facility] in [place] [address] [place] [address] * (ABNORMAL) Comprehensive Metabolic Panel (04/17/2024 2:27 PM CDT) Potassium, P 3.8 3.6 - 5.2 mmol/L 04/17/2024 3:30 PM CDT OWAT Sodium, P 135 135 - 145 mmol/L 04/17/2024 3:30 PM CDT OWAT Chloride, P 98 98 - 107 mmol/L 04/17/2024 3:30 PM CDT OWAT Bicarbonate, P 26 22 - 29 mmol/L 04/17/2024 3:30 PM CDT OWAT Anion Gap, P 11 7 - 15 04/17/2024 3:30 PM CDT OWAT BUN (Blood Urea Nitrogen), P 10 6 - 21 mg/dL 04/17/2024 3:30 PM CDT OWAT Creatinine 0.68 0.59 - 1.04 mg/dL 04/17/2024 3:30 PM CDT OWAT Estimated GFR (eGFR) 90 >=60 mL/min/BS A 04/17/2024 3:30 PM CDT OWAT Comment: Estimated GFR calculated using the 2020 CKD_EPI creatinine equation. Calcium, Total, P 10.1 8.8 - 10.2 mg/dL 04/17/2024 3:30 PM CDT OWAT Glucose, P 121 70 - 140 mg/dL 04/17/2024 3:30 PM CDT OWAT Protein, Total, P 8.4(H) 6.3 - 7.9 g/dL 04/17/2024 3:30 PM CDT OWAT Albumin, P 4.5 3.5 - 5.0 g/dL 04/17/2024 3:30 PM CDT OWAT Aspartate Aminotransferase (AST), P 48(H) 8 - 43 U/L 04/17/2024 3:30 PM CDT OWAT Alkaline Phosphatase, P 82 35 - 104 U/L 04/17/2024 3:30 PM CDT OWAT Alanine Aminotransferase (ALT), P 50(H) 7 - 45 U/L 04/17/2024 3:30 PM CDT OWAT Bilirubin, Total, P 0.3 0.0 - 1.2 mg/dL 04/17/2024 3:30 PM CDT OWAT Blood (Blood, Venous) 04/17/2024 2:27 PM CDT 04/17/2024 2:29 PM CDT us Enrique Schumacher P.A.-C. LAB BLOOD ADD-ON Final Result [facility] [address], [place] [address], [facility] OWAT [facility] in [place] [address], [place] [address] * (ABNORMAL) Urinalysis with Microscopic if Indicated (04/17/2024 2:21 PM CDT) Only the most recent of2 resultswithin the time period is included. Source Urine, Urine, Midstream 04/17/2024 2:54 PM CDT OWAT Clarity Clear Clear 04/17/2024 2:58 PM CDT OWAT Color Yellow 04/17/2024 2:58 PM CDT OWAT Comment: ----REFERENCE VALUE---- Colorless Yellow Kaye Blood Negative Negative 04/17/2024 2:58 PM CDT OWAT Nitrite Negative Negative 04/17/2024 2:58 PM CDT OWAT Leukocyte Esterase Trace(A) Negative 04/17/2024 2:58 PM CDT OWAT Protein Negative mg/dL 04/17/2024 2:58 PM CDT OWAT Comment: ----REFERENCE VALUE---- Negative Trace Glucose Negative Negative mg/dL 04/17/2024 2:58 PM CDT OWAT Ketone Negative Negative mg/dL 04/17/2024 2:58 PM CDT OWAT Bilirubin Negative Negative 04/17/2024 2:58 PM CDT OWAT pH 6.0 5.0 - 8.0 04/17/2024 2:58 PM CDT OWAT Specific [place] 1.012 1.001 - 1.035 04/17/2024 2:58 PM CDT OWAT Urobilinogen 0.2 0.2 - 1.0 mg/dL 04/17/2024 2:58 PM CDT OWAT Urine 04/17/2024 2:21 PM CDT 04/17/2024 2:54 PM CDT us Enrique Schumacher P.A.-C. LAB URINE ORDERABLES F inal Result Performing Organization Address [facility] de Phone Number [facility] [address], [place] [address], [facility] OWAT [facility] in [place] [address], [place] [address] * (ABNORMAL) Microscopic Automated (04/17/2024 2:21 PM CDT) White Blood Cells 4-10 /hpf 04/17/2024 3:01 PM CDT OWAT Comment: ----REFERENCE VALUE---- Males: 0-3 Females: 0-10 Unknown: 0-10 Red Blood Cells None Seen 0 - 2 /hpf 04/17/2024 3:01 PM CDT OWAT Squamous Cells 4-10 /hpf 04/17/2024 3:01 PM CDT OWAT Bacteria Present(A) None Seen 04/17/2024 3:01 PM CDT OWAT Urine 04/17/2024 2:21 PM CDT 04/17/2024 2:54 PM CDT us Enrique Schumacher P.A.-C. LAB URINE ORDERABLES F inal Result Performing Organization Address [facility] Co de Phone Number [facility] [address], [place] [address], [facility] OWAT [facility] in [place] [address] [place] [address] * Bacterial Culture, Aerobic + Susceptibility, Urine (04/17/2024 2:21 PM CDT) Pathologist [facility] Urine Culture No growth after 1 day of incubation. 04/18/2024 12:[address] [facility] Urine (Urine, Midstream) 04/17/2024 2:21 PM CDT 04/17/2024 7:08 PM CDT Comment:Specimen Source Site : Urine us Enrique Schumacher P.A.-C. LAB MICROBIOLOGY - GEN ERAL ORDERABLES Final Result Performing Organization Address City/[facility]/ZIP Co de Phone Number [facility] [address] [place] [address], [facility] in [place] [address] [place] [address] * (ABNORMAL) Hemoglobin A1c (11/06/2023 9:27 AM CDT) Pathologist [facility] Hemoglobin A1c, B 6.8(H) 4.2 - 5.6 % 11/06/2023 1:48 PM CDT [facility] Comment: Hemoglobin A1c values greater than or equal to 6.5 percent are diagnostic for diabetes mellitus. ??Diagnosis should be confirmed by repeat testing. ??In diabetic patients, HbA1c goals should be discussed with healthcare provider. Blood (Blood, Venous) 11/06/2023 9:27 AM CDT 11/06/2023 1:11 PM CDT us Gabby HugoCElaine LAB BLOOD ADD-ON Final Res ult [facility] [address] [place] [address], [place] [facility] in [place] [address] [place] [address] * Albumin, Random, Urine (11/06/2023 9:24 AM CDT) Microalbumin 14.0 mg/L 11/06/2023 2:12 PM CDT OWAT Creatinine 101 mg/dL 11/06/2023 2:12 PM CDT OWAT Albumin/Creatinin e Ratio 14 <25 mg/g 11/06/2023 2:12 PM CDT OWAT Urine (Urine, Voided) 11/06/2023 9:24 AM CDT 11/06/2023 1:11 PM CDT us Gabby Dupree P.A.-C. LAB URINE ORDERABLES Final Result [facility] [address] [place] [address], [place] OW[place] [facility] in [place] [address] [place] [address] * BI Breast Screening Bilateral with Tomosynthesis (09/11/2023 11:45 AM CONSERVATION SCIENTIST) Anatomical Region Laterality Modality Breast, Breast Imaging RST L OS, Breast Imaging ARZ LOS, Breast Imaging FLA LOS Bilateral Mammography Impressions 09/11/2023 11:59 AM CONSERVATION SCIENTIST Negative. RECOMMENDATION: ??Annual Screening Mammogram ASSESSMENT: ??BI-RADS: 1: Negative. Narrative 09/11/2023 11:59 AM CONSERVATION SCIENTIST EXAM: ??BI BREAST SCREENING BILATERAL WITH TOMOSYNTHESIS Current study was evaluated with a Computer Aided Detection (CAD) system. INDICATION: ??Screening mammogram. COMPARISON: ??Prior exam(s) were available and reviewed for comparison. DENSITY: ??b. There are scattered areas of fibroglandular density. FINDINGS: ??No mammographic findings of malignancy. Procedure Note Mitul Ovalles M.D. - 09/11/2023 EXAM: BI BREAST SCREENING BILATERAL WITH TOMOSYNTHESIS Current study was evaluated with a Computer Aided Detection (CAD) system. INDICATION: Screening mammogram. COMPARISON: Prior exam(s) were available and reviewed for comparison. DENSITY: b. There are scattered areas of fibroglandular density. FINDINGS: No mammographic findings of malignancy. IMPRESSION: Negative. RECOMMENDATION: Annual Screening Mammogram ASSESSMENT: BI-RADS: 1: Negative. us Gabby Dupree P.A.-C. IMG BI PROCEDURES Final Re sult * Eyes,508-Ophthalmology Image Exam (07/19/2021 10:10 AM CONSERVATION SCIENTIST) 07/19/2021 10:1 0 AM CONSERVATION SCIENTIST Narrative IIMS - 07/19/2021 10:13 AM CONSERVATION SCIENTIST This order has been created and auto-finalized to support the import of images acquired without order. The clinical documentation to support these images can be found on the encounter that produced images. Provider Not In System IMG NON RAD IMAGING PROCE DURES Final Result IIMS NA from Last 3 Months or Most Recently Relevant to Health Maintenance Insurance MEDICARE [facility] Advance Directives For more information, please contact: [phone] Documents on File Type Date Recorded Patient Radiologic Electronic Specialist Expl anation Advance Directives 12/29/2023 8:27 AM Paris Churchilltierra Brown HCPOA/ADVOCATE/AGENT/R EPRESENTATIVE/SURROGAT E Advance Directives 08/22/2022 10:19 AM INV ALID Healthcare Agents on File Name Relationship Healthcare Agent Relationship Communication Paris Cardenas Daughter Health Care Agent Catherine Sauravkarsonmaria dolores Grandchild First Alternate Health Care Agent Care Teams Retirement Administrator Relationship Specialty Start Date End Date Gabby Dupree P.A.-C. [address] [place] [address] PCP - General Family Medicine 05/18/20
--- OUTSIDE RECORDS SUMMARY | 2024-05-03 21:04 | XMS_ITS | Encounter Summary ---
Author Organization [facility] Address [address] [place] [address] Care Team Providers Care Joist Setter Name Role Phone Gabby Dupree P.A.-C. Primary Care Provider [phone] Reason for Visit * Reason Onset Date Comments After Visit Question 04/19/2024 Diarrhea Encounter Details Date Type Department Care Team (Latest Contact Info) Description 04/19/2024 Clinical Communication Department of Family Medicine, [facility], in [place], [place] [address] [phone] Gabby Dupree, P.A.-C. [address] [phone] After Visit Question (Diarrhea) Social History Tobacco Use Types Packs/Day Years Used Date Smoking Tobacco: Never Smokeless Tobacco: Never Alcohol Use Standard Drinks/Week Comments Never 0 (1 standard drink = 0.6 oz pur e alcohol) [facility] Utilities Answer Date Recorded In the past 12 months has e [employer], gas, oil, or water Tbricks threatened to shut off services in your [...] How often do you attend chur or mosque services? More than 4 times per year 07/29/2022 Do you belong to any clubs o r organizations such as roman catholic groups, unions, fraternal or athletic groups, or [...] Answer Date Recorded PHQ-2 Score 0 11/06/2023 [facility] [place] of Occupat ional Health - Occupational Stress [...] Date Recorded Dental: Regular Dentist Yes 01/16/20 Employment Answer Date Recorded Employment status Retired 11/06/2023 Housing Stability Answer Date Recorded What is your living situation today? I have a [facility] place to live 11/06/2023 Education Answer Date Recorded What is the highest level of school you have completed or the highest degree you have received? 12th grade 04/17/2019 Comments No Sex and Gender Information Value Date Recorded Sex Assigned at Female 03/05/2023 3:59 PM CDT Legal Sex Female 8:30 AM WEALTH MANAGEMENT MANAGER Gender Identity Female 10/16/2018 8:13 AM CDT Sexual Orientation Straight 10/16/2018 8: 13 AM CDT documented as of this encounter Plan of Treatment Upcoming Encounters Date Type Department Care Team (Latest Contact Info) Description 05/14/2024 11:10 AM WEALTH MANAGEMENT MANAGER Appointment Department of Laboratory Medicine in [place] [address] [place] [address] Gabby Dupree, P.AElaine-CElaine [address] [place] [phone] 05/17/2024 11:00 AM WEALTH MANAGEMENT MANAGER Comprehensive Visit Department of Family Medicine, [facility], in [place], [place] [address] [place] [phone] Gabby Dupree P.A.-C. [address] [place] [address] 07/16/2024 9:15 AM WEALTH MANAGEMENT MANAGER Comprehensive Visit Department of Ophthalmology in [place], [place] [address] [facility] [place] [address] Zaki Blevins Jr., M.D. [address] [place] [address] documented as of this encounter Results * (ABNORMAL) GI Pathogen Panel, PCR, [...] performed using the FDA-cleared FilmArray GI Panel ([employer] Semi-Urgent This is a semi-urgent result(DODD) [facility] Stool (Stool) 04/19/2024 2:3 7 PM CDT 04/19/2024 9:48 PM CDT Enrique Schumacher P.A.-C. LAB MICROBIOLOGY - GEN ERAL ORDERABLES Final Result [facility] [address] [place] [address], [facility] [address] [place] [address] documented in this encounter Visit Diagnoses Diagnosis Diarrhea- Primary documented in this encounter Additional Health Concerns Assessment Noted Time PHQ-9 Depression Total Score: 2 07/21/19 24 9:43 AM WEALTH MANAGEMENT MANAGER documented as of this encounter Care Teams Joist Setter Relationship Specialty Start Date End Date Gabby Dupree P.A.-C. [address] [place] [phone] PCP - General Family Medicine 05/18/20 documented as of this encounter
--- OUTSIDE RECORDS SUMMARY | 2024-05-03 21:04 | XMS_ITS | Encounter Summary ---
Author Organization [facility] Address [address] [place] [address] Care Team Providers Care Soaker Name Role Phone Gabby Dupree P.A.-C. Primary Care Provider [phone]- [phone] Encounter Details Date Type Department Care Team (Late st Contact Info) Description 09/22/2016 Historical Ophthalmology [facility] Zaki Blevins Jr., M.D. [address] [place] [phone] Social History Tobacco Use Types Packs/Day Years Used Date Smoking Tobacco: Never Comments Unknown Sex and Gender Information Value Date Recorded Sex Assigned at Female 03/05/2023 3:59 PM CDT Legal Sex Female 8:30 AM GRINDER SET UP OPERATOR GEAR TOOL Gender Identity Female 10/16/2018 8:13 AM CDT Sexual Orientation Straight 10/16/2018 8: 13 AM CDT documented as of this encounter Progress Notes * Zaki Blevins M.D. - 09/22/2016 8:37 AM CDT Eye General CHIEF COMPLAINT Complete Exam HISTORY OF PRESENT ILLNESS Vision is not crisp in both eyes. 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 #2 Glaucoma suspect, high C/D ratio OCT glaucoma on return RTO 6 months DIAGNOSIS #1 Mild NSC #2 Glaucoma suspect, high C/D ratio CDM Reports - EYEGEN Id: [id number] Status: Fnl documented in this encounter Plan of Treatment Upcoming Encounters Date Type Department Care Team (Latest Contact Info) Description 05/14/2024 11:10 AM GRINDER SET UP OPERATOR GEAR TOOL Appointment Department of Laboratory Medicine in [address] [phone] Gabby Dupree P.A.-CElaine [address] [place] [phone] 05/17/2024 11:00 AM GRINDER SET UP OPERATOR GEAR TOOL Comprehensive Visit Department of Family Medicine, [facility], in [address] [phone] Gabby Dupree P.A.-CElaine [address] [place] [phone] 07/16/2024 9:15 AM GRINDER SET UP OPERATOR GEAR TOOL Comprehensive Visit Department of Ophthalmology in [place], [place] [address] [place] [phone] Zaki Blevins Jr., M.D. [address] [place] [phone] documented as of this encounter Visit Diagnoses Not on filedocumented in this encounter Additional Health Concerns Infection Onset Date Last Indicated Resolved Time COVID19 Pending 01/24/2020 01/24/2020 01/27/2020 1 2:21 PM CDT COVID19 Pending 06/07/2020 06/08/2020 06/09/2020 1 2:00 PM GRINDER SET UP OPERATOR GEAR TOOL COVID19 Pending 08/28/2021 08/29/2021 08/30/2021 1 :42 AM GRINDER SET UP OPERATOR GEAR TOOL COVID19 Pending 09/04/2021 09/05/2021 09/06/2021 2 :43 AM GRINDER SET UP OPERATOR GEAR TOOL COVID19 Pending 11/26/2021 11/29/202111/30/2021 1 2:26 AM CDT COVID19 Pending 05/04/2023 05/04/2023 05/04/2023 1 :40 PM CDT MDR GNB 12/20/2023 12/20/2023 12/24/2023 4:45 AM CDT COVID19 Pending 01/16/2024 01/16/2024 01/16/2024 3 :59 PM CDT COVID19 01/16/2024 01/16/2024 02/05/2024 5:44 AM CDT Assessment Noted Time PHQ-9 Depression Total Score: 0 10/15/19 16 9:42 AM CDT documented as of this encounter Care Teams Soaker Relationship Specialty Start Date End Date Gabby Dupree P.A.-C. [address] [place] [phone] PCP - General Family Medicine 05/18/20 documented as of this encounter
--- OUTSIDE RECORDS SUMMARY | 2024-05-03 21:04 | XMS_ITS | Encounter Summary ---
Author Organization [facility] Address [address] [place] [address] Care Team Providers Care Weight Yardage Checker Name Role Phone Gabby Dupree P.A.-C. Primary Care Provider +1- [phone] Encounter Details Date Type Department Care Team (Latest Contact Info) Description 04/17/2024 2:12 PM CDT - 04/17/2024 2:30 PM CDT Hospital Encounter Department of Laboratory Medicine in [place], [place] [address] [place] [phone] Enrique Schumacher, PElaineAElaine-CElaine [address] [place] [phone] Diarrhea Discharge Disposition: Home or Self Care Social History Tobacco Use Types Packs/Day Years Used Date Smoking Tobacco: Never Smokeless Tobacco: Never Alcohol Use Standard Drinks/Week Comments Never 0 (1 standard drink = 0.6 oz pur e alcohol) [facility] Utilities Answer Date Recorded In the past 12 months has e [employer] gas, oil, or water company threatened to shut off services in your [...] How often do you attend chur or jehovah's witness services? More than 4 times per year 07/29/2022 Do you belong to any clubs o r organizations such as synagogue groups, unions, fraternal or athletic groups, or [...] Answer Date Recorded PHQ-2 Score 0 11/06/2023 [facility] - Occupational [...] your living situation today? I have a [facility] place to live 11/06/2023 Education Answer Date Recorded What is the highest level of school you have completed or the highest degree you have received? 12th grade 04/17/2019 Comments No Sex and Gender Information Value Date Recorded Sex Assigned at Female 03/05/2023 3:59 PM CDT Legal Sex Female 8:30 AM HACK DRIVER Gender Identity Female 10/16/2018 8:13 AM CDT Sexual Orientation Straight 10/16/2018 8: 13 AM CDT documented as of this encounter Medications at Time of Discharge albuterol (ProAir HFA) 90 mcg/actuation inhaler Inhale 2 puffs every 4 (four) hours as needed for wheezing or shortness of breath. 25.5 g 3 12/17/2021 amLODIPine (NORVASC) 5 mg tablet Take 1 tablet (5 mg total) by mouth daily. 90 tablet 3 11/10/2023 amoxicillin (AmoxiL) 500 mg capsule Take 4 capsules (2,000 mg total) by mouth as needed (30-60 min prior to dental procedure). 4 capsule 2 01/18/[address] tablet Take 81 mg by mouth daily. atorvastatin (LIPITOR) 80 mg tablet TAKE 1 TABLET(80 MG) BY MOUTH DAILY 90 tablet 3 10/12/2023 blood sugar diagnostic strips (Blood Glucose Test Strips) Check blood sugars 1 time daily. 100 strip 3 01/18/2024 CALCIUM CARB/VIT D3/MINERALS (CALCIUM-VITAMIN D ORAL) Take 1 tablet by mouth 2 (two) times a day. 05/13/2011 clobetasoL (TEMOVATE) 0.05 % ointmentIndicati ons:Lichen Sclerosus Apply topically 2 (two) times a day. 60 g 3 10/25/2023 estradioL (Estrace) 0.1 mg/g (0.01%) vaginal creamIndications :Atrophy Vagina Due To Estrogen Deficiency Insert 1 g into the vagina 3 (three) times a week. 42.5 g 1 10/25/2023 fluticasone propionate (FLONASE) 50 mcg/actuation nasal spray Administer 2 sprays into each nostril daily. 48 g 3 05/03/2022 glipiZIDE (GLUCOTROL XL) 2.5 mg 24 hr tablet Take 1 tablet (2.5 mg total) by mouth daily. 90 tablet 3 10/12/2023 hydroCHLOROthiaz garrison 12.5 mg tablet TAKE 1 TABLET(12.5 MG) BY MOUTH DAILY 90 tablet 3 10/12/2023 iron,carbonyl-vi tamin C (VITRON-C) 65 mg iron- [address] tablet Take 65 mg of iron by mouth every other day. Do not crush or chew. lisinopriL (PRINIVIL,ZESTRI L) 40 mg tablet TAKE 1 TABLET(40 MG) BY MOUTH DAILY 90 tablet 3 10/12/2023 loperamide (IMODIUM A-D) 2 mg capsule Take 4 mg by mouth 4 (four) times a day as needed for diarrhea. 09/29/2023 omeprazole (PriLOSEC) [address] capsule TAKE 1 CAPSULE(20 MG) BY MOUTH EVERY DAY 90 capsule 3 10/12/2023 sennosides (senna) 8.6 mg tablet Take 8.6 mg by mouth every other day. sertraline (ZOLOFT) 100 mg tablet Take 1 tablet (100 mg total) by mouth daily. 90 tablet 3 11/10/2023 traZODone (DESYREL) 50 mg tablet Take 1 tablet (50 mg total) by mouth at bedtime as needed for sleep. 90 tablet 3 11/10/2023 documented as of this encounter Plan of Treatment Upcoming Encounters Date Type Department Care Team (Latest Contact Info) Description 05/14/2024 11:10 AM HACK DRIVER Appointment Department of Laboratory Medicine in [address] [phone] Gabby Dupree P.A.-CElaine [address] [phone] 05/17/2024 11:00 AM HACK DRIVER Comprehensive Visit Department of Family Medicine, [facility], in [address] [phone] Gabby Dupree P.A.-CElaine [address] [phone] 07/16/2024 9:15 AM HACK DRIVER Comprehensive Visit Department of Ophthalmology in [place], [place] [address] [place] [phone] Zaki Blevins Jr., M.D. [address] [phone] documented as of this encounter Procedures Procedure Name Priority Date/Time Associated Diagnosis Comments CBC WITH DIFFERENTIAL, B Routine 04/17/2024 2:27 PM CDT Diarrhea LIPASE, S/P Routine 04/17/2024 2:27 PM CDT Diarrhea AMYLASE, TOT, S Routine 04/17/2024 2:27 PM CDT Diarrhea COMPREHENSIVE METABOLIC PANEL, S/P Routine 04/17/2024 2:27 PM CDT Diarrhea documented in this encounter Results * Lipase (04/17/2024 2:27 PM CDT) Lipase, P 33 13 - 60 U/L 04/17/2024 3: 30 PM CDT OWAT Blood (Blood, Venous) 04/17/2024 2:27 PM CDT 04/17/2024 2:29 PM CDT us Enrique HugoC. LAB BLOOD ADD-ON Final Result Performing Organization Address [facility] Co de Phone Number [facility] [address] [place] [phone], [facility] OWAT [facility] [place] [address] [place] [phone] * Amylase, Total (04/17/2024 2:27 PM CDT) Amylase, Total, P 32 28 - 100 U/L 04/17/2024 3:30 PM CDT OWAT Blood (Blood, Venous) 04/17/2024 2:27 PM CDT 04/17/2024 2:29 PM CDT us Enrique SanchezA.-C. LAB BLOOD ADD-ON Final Result [facility] [address] [place] [phone], [place] AT [facility] [place] [address] [place] [phone] * (ABNORMAL) Comprehensive Metabolic Panel (04/17/2024 2:27 [...] 2:27 PM CDT 04/17/2024 2:29 PM CDT Enrique Schumacher P.A.-C. LAB BLOOD ADD-ON Final Result [facility] [address] [place] [address], [facility] OWAT [facility] [place] [address] [place] [address] * (ABNORMAL) CBC with Differential, Blood (04/17/2024 [...] Schumacher P.A.-C. LAB BLOOD ADD-ON Final Result [facility] [address] [place] [address], [facility] OWAT [facility] [place] [address] [place] [address] documented in this encounter Visit Diagnoses Diagnosis Diarrhea documented in this encounter Additional Health Concerns Assessment Noted Time PHQ-9 Depression Total Score: 2 07/21/19 24 9:43 AM HACK DRIVER documented as of this encounter Care Teams Weight Yardage Checker Relationship Specialty Start Date End Date Gabby Dupree P.A.-C. [address] [place] [phone] PCP - General Family Medicine 05/18/20 documented as of this encounter
--- OUTSIDE RECORDS SUMMARY | 2024-05-03 21:04 | XMS_ITS | Encounter Summary ---
Author Organization [facility] Address [address] [place] [address] Care Team Providers Care Pocket Stitcher Name Role Phone Gabby Dupree P.A.-C. Primary Care Provider +1- [phone] Encounter Details Date Type Department Care Team (Late st Contact Info) Description 04/28/2015 Historical Ophthalmology [facility] Zaki Blevins Jr., M.D. [address], [place] [phone] Social History Tobacco Use Types Packs/Day Years Used Date Smoking Tobacco: Never Assessed Comments Unknown Sex and Gender Information Value Date Recorded Sex Assigned at Female 03/05/2023 3:59 PM CDT Legal Sex Female 8:30 AM PRODUCTION MAINTENANCE MECHANIC Gender Identity Female 10/16/2018 8:13 AM CDT Sexual Orientation Straight 10/16/2018 8: 13 AM CDT documented as of this encounter Progress Notes * Zaki Blevins M.D. - 04/28/2015 9:45 AM CDT Eye General CHIEF COMPLAINT OCT- Optic Nerve HISTORY OF PRESENT ILLNESS Nurse only visit. CDM Reports - EYEGEN Id: [id number] Status: Fnl documented in this encounter Plan of Treatment Upcoming Encounters Date Type Department Care Team (Latest Contact Info) Description 05/14/2024 11:10 AM PRODUCTION MAINTENANCE MECHANIC Appointment Department of Laboratory Medicine in [place], [place] [address] [facility] [place] [phone] Gabby Dupree P.A.-Regino [address] [place] [phone] 05/17/2024 11:00 AM PRODUCTION MAINTENANCE MECHANIC Comprehensive Visit Department of Family Medicine, [facility], in [place], [place] [address] [facility] [place] [phone] Gabby Dupree P.A.-CElaine [address] [place] [phone] 07/16/2024 9:15 AM PRODUCTION MAINTENANCE MECHANIC Comprehensive Visit Department of Ophthalmology in [place], [place] [address] [place] [phone] Zaki Blevins Jr., M.D. [address], [place] [phone] documented as of this encounter Visit Diagnoses Not on filedocumented in this encounter Additional Health Concerns Infection Onset Date Last Indicated Resolved Time COVID19 Pending 01/24/2020 01/24/2020 01/27/2020 1 2:21 PM CDT COVID19 Pending 06/07/2020 06/08/2020 06/09/2020 1 2:00 PM PRODUCTION MAINTENANCE MECHANIC COVID19 Pending 08/28/2021 08/29/2021 08/30/2021 1 :42 AM PRODUCTION MAINTENANCE MECHANIC COVID19 Pending 09/04/2021 09/05/2021 09/06/2021 2 :43 AM PRODUCTION MAINTENANCE MECHANIC COVID19 Pending 11/26/2021 11/29/2021 11/30/2021 1 2:26 AM CDT COVID19 Pending 05/04/2023 05/04/2023 05/04/2023 1 :40 PM CDT MDR GNB 12/20/2023 12/20/2023 12/24/2023 4:45 AM CDT COVID19 Pending 01/16/2024 01/16/2024 01/16/2024 3 :59 PM CDT COVID19 01/16/2024 01/16/2024 02/05/2024 5:44 AM CDT Assessment Noted Time PHQ-9 Depression Total Score: 0 05/05/20 14 9:42 AM CDT documented as of this encounter Care Teams Pocket Stitcher Relationship Specialty Start Date End Date Gabby Dupree PElaineAZafar [address] [place] [phone] PCP - General Family Medicine 05/18/20 documented as of this encounter
--- OUTSIDE RECORDS SUMMARY | 2024-05-03 21:04 | XMS_ITS | Encounter Summary ---
Author Organization [facility] Address [address] [place] [address] Care Team Providers Care Manager Safe Name Role Phone Gabby Dupree P.A.-C. Primary Care Provider +1- [phone] Encounter Details Date Type Department Care Team (Late st Contact Info) Description 04/07/2017 Historical Ophthalmology [facility] Zaki Blevins Jr., M.D. [address] [place] [phone] Social History Tobacco Use Types Packs/Day Years Used Date Smoking Tobacco: Never Comments Unknown Sex and Gender Information Value Date Recorded Sex Assigned at Female 03/05/2023 3:59 PM CDT Legal Sex Female 8:30 AM OXIDIZED FINISH PLATER Gender Identity Female 10/16/2018 8:13 AM CDT Sexual Orientation Straight 10/16/2018 8: 13 AM CDT documented as of this encounter Progress Notes * Zaki Blevins M.D. - 04/07/2017 9:36 AM CDT Eye General CHIEF COMPLAINT OCT disc HISTORY OF PRESENT ILLNESS glasses are new, troubles focusing with them IMPRESSION / REPORT / PLAN #1 Mild NSC Replace OS #2 Glaucoma suspect, high C/D ratio OCT glaucoma: Good study for interpretation. Also compared to prior OCT. No change in OCT. RNFL both good in both eyes. Pattern adequate, unchanged. C/D increased to 0.7 ou, stable Will see back in 6 months RTO 6 months DIAGNOSIS #1 Mild NSC #2 Glaucoma suspect, high C/D ratio CDM Reports - EYEGEN Id: [id number] Status: Fnl documented in this encounter Plan of Treatment Upcoming Encounters Date Type Department Care Team (Latest Contact Info) Description 05/14/2024 11:10 AM OXIDIZED FINISH PLATER Appointment Department of Laboratory Medicine in [address] [phone] Gabby Dupree, P.A.-C. [address] [phone] 05/17/2024 11:00 AM OXIDIZED FINISH PLATER Comprehensive Visit Department of Family Medicine, [facility], in [address] [phone] Gabby Dupree, P.A.-C. [address] [place] [phone] 07/16/2024 9:15 AM OXIDIZED FINISH PLATER Comprehensive Visit Department of Ophthalmology in [place], [place] [address] [place] [phone] Zaki Blevins Jr., M.D. [address] [phone] documented as of this encounter Visit Diagnoses Not on filedocumented in this encounter Additional Health Concerns Infection Onset Date Last Indicated Resolved Time COVID19 Pending 01/24/2020 01/24/2020 01/27/2020 1 2:21 PM CDT COVID19 Pending 06/07/2020 06/08/2020 06/09/2020 1 2:00 PM OXIDIZED FINISH PLATER COVID19 Pending 08/28/2021 08/29/2021 08/30/2021 1 :42 AM OXIDIZED FINISH PLATER COVID19 Pending 09/04/2021 09/05/2021 09/06/2021 2 :43 AM OXIDIZED FINISH PLATER COVID19 Pending 11/26/2021 11/29/2021 11/30/2021 2:26 AM CDT COVID19 Pending 05/04/2023 05/04/2023 05/04/2023 1 :40 PM CDT MDR GNB 12/20/2023 12/20/2023 12/24/2023 4:45 AM CDT COVID19 Pending 01/16/2024 01/16/2024 01/16/2024 3 :59 PM CDT COVID19 01/16/2024 01/16/2024 02/05/2024 5:44 AM CDT Assessment Noted Time PHQ-9 Depression Total Score: 3 02/21/20 17 1:25 PM CDT documented as of this encounter Care Teams Manager Safe Relationship Specialty Start Date End Date Gabby Dupree, PElaineAShanti. [address] [place] [phone] PCP - General Family Medicine 05/18/20 documented as of this encounter
--- OUTSIDE RECORDS SUMMARY | 2024-05-03 21:04 | XMS_ITS | Encounter Summary ---
Author Organization [facility] Address [address] [place] [address] Care Team Providers Care Commissary Officer Name Role Phone Gabby Dupree P.A.-C. Primary Care Provider +1- [phone] Encounter Details Date Type Department Care Team (Late st Contact Info) Description 04/10/2015 Historical Ophthalmology [facility] Zaki Blevins Jr., M.D. [address] [place] [phone] Social History Tobacco Use Types Packs/Day Years Used Date Smoking Tobacco: Never Assessed Comments Unknown Sex and Gender Information Value Date Recorded Sex Assigned at Female 03/05/2023 3:59 PM CDT Legal Sex Female 8:30 AM CERTIFIED WELDER Gender Identity Female 10/16/2018 8:13 AM CDT Sexual Orientation Straight 10/16/2018 8: 13 AM CDT documented as of this encounter Progress Notes * Zaki Blevins M.D. - 04/10/2015 9:04 AM CDT Eye General CHIEF COMPLAINT Complete Exam HISTORY OF PRESENT ILLNESS [place] gets foggy, is always rubbing her eyes, glasses appear dirty all the time. (OU) ROS Good general health- heart and lungs WNL IMPRESSION / REPORT / PLAN A) Increased C/D, mild cataracts, hyperopia, presbyopia P) MR, [id number] CDM Reports - EYEGEN Id: [id number] Status: Fnl documented in this encounter Plan of Treatment Upcoming Encounters Date Type Department Care Team (Latest Contact Info) Description 05/14/2024 11:10 AM CERTIFIED WELDER Appointment Department of Laboratory Medicine in [address] [phone] Gabby Dupree P.A.-CElaine [address] [phone] 05/17/2024 11:00 AM CERTIFIED WELDER Comprehensive Visit Department of Family Medicine, [facility], in [address] [phone] Gabby Dupree P.A.-CElaine [address] [phone] 07/16/2024 9:15 AM CERTIFIED WELDER Comprehensive Visit Department of Ophthalmology in [place], [place] [address] [place] [phone] Zaki Blevins Jr., M.D. [address] [phone] documented as of this encounter Visit Diagnoses Not on filedocumented in this encounter Additional Health Concerns Infection Onset Date Last Indicated Resolved Time COVID19 Pending 01/24/2020 01/24/2020 01/27/2020 1 2:21 PM CDT COVID19 Pending 06/07/2020 06/08/2020 06/09/2020 1 2:00 PM CERTIFIED WELDER COVID19 Pending 08/28/2021 08/29/2021 08/30/2021 1 :42 AM CERTIFIED WELDER COVID19 Pending 09/04/2021 09/05/2021 09/06/2021 2 :43 AM CERTIFIED WELDER COVID19 Pending 11/26/2021 11/29/2021 11/30/2021 1 2:26 AM CDT COVID19 Pending 05/04/2023 05/04/2023 05/04/2023 1 :40 PM CDT MDR GNB 12/20/2023 12/20/2023 12/24/2023 4:45 AM CDT COVID19 Pending 01/16/2024 01/16/2024 01/16/2024 3 :59 PM CDT COVID19 01/16/2024 01/16/2024 02/05/2024 5:44 AM CDT Assessment Noted Time PHQ-9 Depression Total Score: 0 05/05/20 14 9:42 AM CDT documented as of this encounter Care Teams Commissary Officer Relationship Specialty Start Date End Date Gabby Dupree P.A.-C. [address] [place] [phone] PCP - General Family Medicine 05/18/20 documented as of this encounter
--- OUTSIDE RECORDS SUMMARY | 2024-05-03 21:04 | XMS_ITS | Referral Summary ---
Author Organization [facility] Address [address] [place] [address] Care Team Providers Care Silk Soaker Name Role Phone Gabby Dupree P.A.-C. Primary Care Provider [phone]- [phone] Source Comments Patient records contain information from all sites at [facility]. For routine questions regarding patient records, call [phone] during business hours, M-F 8:00 AM - 5:00 PM Central Time. Record requests for emergency care only can be directed to [phone] at any time.[facility] Encounters Date Type Department Care Team Description 04/20/2024 Documentation Department of Family Medicine, [facility], in [address] [phone] Himanshu Barry M.D. 04/19/2024 1:20 PM CDT - 04/19/2024 11:59 PM CDT Hospital Encounter Department of Laboratory Medicine in [place], [place] [address] [place] [address] Enrique Schumacher P.A.-C. Diarrhea Discharge Disposition: Home or Self Care 04/19/2024 Clinical Communication Department of Family Medicine, [facility], in [place], [place] [address] [place] [address] Gabby Dupree P.A.-C. After Visit Question (Diarrhea) 04/17/2024 11:34 AM CDT - 04/17/2024 11:59 PM CDT Hospital Encounter Department of Laboratory Medicine, [facility], in [place], [place] [address] [place] [address] Enrique Schumacher P.A.-CElaine Discharge Disposition: Home or Self Care 04/17/2024 2:31 PM CDT - 04/17/2024 11:59 PM CDT Hospital Encounter Department of Radiology in [address] [phone] Enrique Schumacher P.A.-CElaine Diarrhea Discharge Disposition: Home or Self Care 04/17/2024 2:12 PM CDT - 04/17/2024 2:30 PM CDT Hospital Encounter Department of Laboratory Medicine in [address] [phone] Enrique Schumacher P.AElaine-CElaine Diarrhea Discharge Disposition: Home or Self Care 04/17/2024 1:50 PM CDT - 04/17/2024 2:11 PM CDT Hospital Encounter Department of Laboratory Medicine in [place], [place] [address] [place] [phone] Enrique Schumacher P.AElaine-CElaine Diarrhea Discharge Disposition: Home or Self Care 04/17/2024 1:00 PM CDT Office Visit Department of Family Medicine, [facility], in [address] [phone] Enrique Schumacher P.AElaine-CElaine Diarrhea (Primary Dx); Sclerosis Aortic Valve 03/05/2024 2:45 PM CDT Office Visit Department of Ophthalmology in [place], [place] [address] [place] [phone] Zaki Blevins Jr., M.D. Presbyopia (Primary Dx) 02/20/2024 Clinical Communication Department of Ophthalmology in [place], [place] [address] [place], [place] [address], [place] [address] Zaki Blevins Jr., M.D. from Last 3 Months Allergies Active Allergy Reactions Criticality Noted Date [...] BY MOUTH EVERY DAY 90 capsule 3 10/12/19 24 Active lisinopriL (PRINIVIL,ZESTRIL) 40 mg tablet TAKE 1 TABLET(40 MG) BY MOUTH DAILY 90 tablet 3 10/12/19 24 Active atorvastatin (LIPITOR) 80 mg tablet TAKE 1 TABLET(80 MG) BY MOUTH DAILY 90 tablet 3 10/12/19 24 Active hydroCHLOROthiazide 12.5 mg tablet TAKE 1 TABLET(12.5 MG) BY MOUTH DAILY 90 tablet 3 10/12/19 24 Active glipiZIDE (GLUCOTROL XL) 2.5 mg 24 hr tablet Take 1 tablet (2.5 mg total) by mouth daily. 90 tablet 3 10/12/19 24 Active sennosides (senna) 8.6 mg [...] total) by mouth daily. 90 tablet 3 11/10/19 24 Active sertraline (ZOLOFT) 100 mg tablet Take 1 tablet (100 mg total) by mouth daily. 90 tablet 3 11/10/19 24 Active blood sugar diagnostic strips [...] Perforation Or Abscess Without Bleeding 09/20/2012 11/30/2020 Immunizations Name Administration Dates Next Due DT, [...] (FLUZ ONE) (6 months-35 months) (PF) 04/01/2013 Social History Tobacco Use Types Packs/Day Years Used Date Smoking Tobacco: Never Smokeless Tobacco: Never Tobacco Cessation:Counseling Given: Not Answered Alcohol Use Standard Drinks/Week Comments Never 0 (1 standard drink = 0.6 oz pur e alcohol) [facility] Utilities Answer Date Recorded In the past 12 months has e [employer], gas, oil, or water [employer] threatened to shut off services in your [...] 07/29/2022 How often do you attend chur ch or mandaen services? More than 4 times per year 07/29/2022 Do you belong to any clubs o r organizations such as buddhism groups, unions, fraternal or athletic groups, or [...] Answer Date Recorded PHQ-2 Score 0 11/06/2023 [facility] [place] of Occupat ional Health - Occupational Stress [...] your living situation today? I have a [facility] place to live 11/06/2023 Education Answer Date Recorded What is the highest level of school you have completed or the highest degree you have received? 12th grade 04/17/2019 Comments No Sex and Gender Information Value Date Recorded Sex Assigned at Female 03/05/2023 3:59 PM CDT Legal Sex Female 8:30 AM SOLID TIRE FINISHER Gender Identity Female 10/16/2018 8:13 AM CDT [...] (Latest Contact Info) Description 05/14/2024 11:10 AM SOLID TIRE FINISHER Appointment Department of Laboratory Medicine in [address] [phone] Gabby DupreeNica [address], [place] [address] 05/17/2024 11:00 AM SOLID TIRE FINISHER Comprehensive Visit Department of Family Medicine, [facility], in [place], [place] [address] [place] [address] Gabby Dupree P.A.-C. [address] [facility] [place] [address] 07/16/2024 9:15 AM SOLID TIRE FINISHER Comprehensive Visit Department of Ophthalmology in [place], [place] [address] [place] [facility] [place] [address] Zaki Blevins Jr., M.D. [address] [place] [address] Medical Devices Implanted Type Area Websphere Portal Developer Device Identifier Shelf Expiration Date Model / [...] B Routine 04/17/2024 2:27 PM CDT Diarrhea OK URINALYSIS AUTO WO MICRO Routine 04/17/2024 2:21 [...] inpatients and all outpatients) 09/11/2023 11:45 AM SOLID TIRE FINISHER Screening Mammogram Average Risk Patient OPHTHALMOLOGY IMAGE EXAM Routine 07/19/2021 10:10 AM SOLID TIRE FINISHER from Last 3 Months or Most Recently [...] CDT [facility] Norovirus GI/GII Negative Negative 04/20/20 24 12:59 AM CDT [facility] Rotavirus Ag, F Negative Negative 12:59 AM CDT [facility] Sapovirus Negative Negative 04/20/2024 12:59 AM CDT [facility] Comment: ----ADDITIONAL INFORMATION---- This assay is performed using the FDA-cleared FilmArray GI Panel ([employer] Semi-Urgent This is a semi-urgent result(DODD) [facility] Stool (Stool) 04/19/2024 2:3 7 PM CDT 04/19/2024 9:48 PM CDT us Enrique Schumacher P.A.-C. LAB MICROBIOLOGY - GEN ERAL ORDERABLES Final Result [facility] [address] [place] [address], [facility] [address] [place] [address] * CT Abdomen Pelvis with IV Contrast [...] acute findings in the abdomen or pelvis. Enrique Schumacher P.A.-C. IMG CT PROCEDURES Daksha l Result * (ABNORMAL) CBC with Differential, Blood (04/17/2024 2:27 PM CDT) Pathologist [facility] Hemoglobin 12.3 11.6 - 15.0 g/dL 04/17/2024 [...] BLOOD ADD-ON Final Result Performing Organization Address [facility]/ZIP Co de Phone Number [facility] [address] [place] [address], [facility] in [place] [address] [place] [id number] * Lipase (04/17/2024 2:27 PM CDT) Lipase, P 33 13 - 60 U/L 04/17/2024 3: 30 PM CDT [facility] Blood (Blood, Venous) 04/17/2024 2:27 PM CDT 04/17/2024 2:29 PM CDT Enrique Schumacher P.A.-C. LAB BLOOD ADD-ON Final Result Performing Organization Address [facility] Co de Phone Number [facility] [address] [place] [address], [place] [facility] in [place] [address], [place] [address] * Amylase, Total (04/17/2024 2:27 PM CDT) Amylase, Total, P 32 28 - 100 U/L 04/17/2024 3:30 PM CDT [facility] Blood (Blood, Venous) 04/17/2024 2:27 PM CDT 04/17/2024 2:29 PM CDT Enrique HugoC. LAB BLOOD ADD-ON Final Result [facility] [address] [place] [address], [facility] in [place] [address] [place] [facility] [place] [address] * (ABNORMAL) Comprehensive Metabolic Panel (04/17/2024 2:27 [...] CDT 04/17/2024 2:29 PM CDT us Enrique Schumachre P.A.-C. LAB BLOOD ADD-ON Final Result [facility] [address] [place] [address], [facility] [facility] in [place] [address] [place] [address] * (ABNORMAL) Urinalysis with Microscopic if Indicated [...] 8.0 04/17/2024 2:58 PM CDT [facility] Specific Fonda 1.012 1.001 - 1.035 04/17/2024 2:58 PM CDT [facility] Urobilinogen 0.2 0.2 - 1.0 mg/dL 04/17/2024 2:58 PM CDT [facility] Urine 04/17/2024 2:21 PM CDT 04/17/2024 2:54 PM CDT us Enrique Schumacher P.A.-C. LAB URINE ORDERABLES F inal Result Performing Organization Address [facility] Co de Phone Number [facility] [address] [place] [address], [place] [facility] [facility] in [place] [address] [place] [address] * (ABNORMAL) Microscopic Automated (04/17/2024 2:21 PM [...] CDT 04/17/2024 2:54 PM CDT us Enrique HugoC. LAB URINE ORDERABLES F inal Result Performing Organization Address [facility] Co de Phone Number [facility] [address] [place] [address], [place] [facility] [facility] in [place] [address] [place] [address] * Bacterial Culture, Aerobic + Susceptibility, Urine (04/17/2024 2:21 PM CDT) Urine Culture No growth after 1 day of incubation. 04/18/2024 12:46 PM CDT [facility] Urine (Urine, Midstream) 04/17/2024 2:21 PM CDT 04/17/2024 7:08 PM CDT Comment:Specimen Source Site : Urine us Enrique Schumacher P.A.-C. LAB MICROBIOLOGY - GEN ERAL ORDERABLES Final Result Performing Organization Address [facility] Co de Phone Number [facility] [address] [place] [address], [facility] [address] [facility] in [place] [address] [place] [address] * (ABNORMAL) Hemoglobin A1c (11/06/2023 9:27 AM CDT) Hemoglobin A1c, B 6.8(H) 4.2 - 5.6 % 11/06/2023 1:48 PM CDT [facility] Comment: Hemoglobin A1c values greater than or equal to 6.5 percent are diagnostic for diabetes mellitus. ??Diagnosis should be confirmed by repeat testing. ??In diabetic patients, HbA1c goals should be discussed with healthcare provider. Blood (Blood, Venous) 11/06/2023 9:27 AM CDT 11/06/2023 1:11 PM CDT us Gabby Dupree P.A.-C. LAB BLOOD ADD-ON Final Res ult Performing Organization Address City[facility] Co de Phone Number [facility] [address] [place] [address], [place] [address] [facility] in [place] [address] [place] [address] * Albumin, [place], Urine (11/06/2023 9:24 AM CDT) Microalbumin 14.0 mg/L 11/06/2023 2:12 PM CDT [facility] Creatinine 101 mg/dL 11/06/2023 2:12 PM CDT [facility] Albumin/Creatinin e Ratio 14 <25 mg/g 11/06/2023 2:12 PM CDT [facility] Urine (Urine, Voided) 11/06/2023 9:24 AM CDT 11/06/2023 1:11 PM CDT Gabby Dupree P.A.-C. LAB URINE ORDERABLES Final Result [facility] [address] [place] [address], [facility] OW[address] [facility] in [place] [address] [place] [address] * BI Breast Screening Bilateral with Tomosynthesis (09/11/2023 11:45 AM SOLID TIRE FINISHER) Anatomical Region Laterality Modality Breast, Breast Imaging RST L OS, Breast Imaging ARZ LOS, Breast Imaging FLA LOS Bilateral Mammography Impressions 09/11/2023 11:59 AM SOLID TIRE FINISHER Negative. RECOMMENDATION: ??Annual Screening Mammogram ASSESSMENT: ??BI-RADS: 1: Negative. Narrative 09/11/2023 11:59 AM SOLID TIRE FINISHER EXAM: ??BI BREAST SCREENING BILATERAL WITH TOMOSYNTHESIS [...] Annual Screening Mammogram ASSESSMENT: BI-RADS: 1: Negative. Gabby Dupree P.A.-C. IMG BI PROCEDURES Final Re sult * Eyes,508-Ophthalmology Image Exam (07/19/2021 10:10 AM SOLID TIRE FINISHER) 07/19/2021 10:1 0 AM SOLID TIRE FINISHER Narrative IIMS - 07/19/2021 10:13 AM SOLID TIRE FINISHER This order has been created and auto-finalized to support the import of images acquired without order. The clinical documentation to support these images can be found on the encounter that produced images. us Provider Not In System IMG NON RAD IMAGING PROCE DURES Final Result IIMS NA from Last 3 Months or Most Recently Relevant to Health Maintenance Insurance MEDICARE [facility] Advance Directives For more information, please contact: [phone] Documents on File Type Date Recorded Patient Airplane And Engine Inspector Expl anation Advance Directives 12/29/2023 8:27 AM Paris Brown HCPOA/ADVOCATE/AGENT/R EPRESENTATIVE/SURROGAT E Advance Directives 08/22/2022 10:19 AM INV ALID Healthcare Agents on File Name Relationship Healthcare Agent Relationship Communication Paris Cardenas Daughter Health Care Agent Catherine Brown Grandchild First Alternate Health Care Agent Care Teams Silk Soaker Relationship Specialty Start Date End Date Gabby Dupree P.A.-C. [address] [place] [address] PCP - General Family Medicine 05/18/20
--- OUTSIDE RECORDS SUMMARY | 2024-05-03 21:04 | XMS_ITS | Encounter Summary ---
Author Organization [facility] Address [address] [place] [address] Care Team Providers Care Insurance Job Titles Name Role Phone Gabby Dupree P.A.-C. Primary Care Provider +1- [phone] Encounter Details Date Type Department Care Team (Latest Contact Info) Description 02/20/2024 Clinical Communication Department of Ophthalmology in [place], [place] [address] [phone] Zaki Blevins Jr., M.D. [address] [phone] Social History Tobacco Use Types Packs/Day Years Used Date Smoking Tobacco: Never Smokeless Tobacco: Never Alcohol Use Standard Drinks/Week Comments Never 0 (1 standard drink = 0.6 oz pur e alcohol) [facility] Utilities Answer Date Recorded In the past 12 months has e [employer], gas, oil, or water [employer] threatened to shut off services in your [...] How often do you attend chur or latter day services? More than 4 times per year 07/29/2022 Do you belong to any clubs o r organizations such as restoration groups, unions, fraternal or athletic groups, or [...] Answer Date Recorded PHQ-2 Score 0 11/06/2023 [facility] of Occupat ional Health - Occupational [...] your living situation today? I have a [facility] place to live 11/06/2023 Education Answer Date Recorded What is the highest level of school you have completed or the highest degree you have received? 12th grade 04/17/2019 Comments No Sex and Gender Information Value Date Recorded Sex Assigned at Female 03/05/2023 3:59 PM CDT Legal Sex Female 8:30 AM ASSISTANT PROFESSOR OF CRIMINAL JUSTICE Gender Identity Female 10/16/2018 8:13 AM CDT Sexual Orientation Straight 10/16/2018 8: 13 AM CDT documented as of this encounter Plan of Treatment Upcoming Encounters Date Type Department Care Team (Latest Contact Info) Description 05/14/2024 11:10 AM ASSISTANT PROFESSOR OF CRIMINAL JUSTICE Appointment Department of Laboratory Medicine in [place] [address] [address] [facility] [address] Gabby Dupree, PElaineAZafar [address] [place] [address] 05/17/2024 11:00 AM ASSISTANT PROFESSOR OF CRIMINAL JUSTICE Comprehensive Visit Department of Family Medicine, [facility], in [place], [place] [address] [place] [address] Gabby Dupree P.A.-C. [address], [place] [phone] 07/16/2024 9:15 AM ASSISTANT PROFESSOR OF CRIMINAL JUSTICE Comprehensive Visit Department of Ophthalmology in [place], [place] [address] [place] [address] Zaki Blevins Jr., M.D. [address] [place] [address] documented as of this encounter Visit Diagnoses Not on filedocumented in this encounter Additional Health Concerns Assessment Noted Time PHQ-9 Depression Total Score: 2 07/21/19 24 9:43 AM ASSISTANT PROFESSOR OF CRIMINAL JUSTICE documented as of this encounter Care Teams Insurance Job Titles Relationship Specialty Start Date End Date Gabby Dupree P.A.-C. [address] [place] [address] PCP - General Family Medicine 05/18/20 documented as of this encounter
--- OUTSIDE RECORDS SUMMARY | 2024-05-03 21:04 | XMS_ITS | Encounter Summary ---
Author Organization [facility] Address [address] [place] [address] Care Team Providers Care Last Turner Name Role Phone Gabby Dupree P.A.-C. Primary Care Provider +1- [phone] Reason for Visit * Reason Comments Decreased Visual Acuity * Appointment Request (Routine) - Closed Specialty Diagnoses / Procedures Referred By Wagner whitten Referred To Contact Ophthalmology Referral ID Status Reason Start Date Expiration Date Visits Re quested Visits Authorized [id number] Closed 02/20/2024 02/19/2025 1 1 Encounter Details Date Type Department Care Team (Latest Contact Info) Description 03/05/2024 2:45 PM CDT Office Visit Department of Ophthalmology in [place], [place] [address] [address] Zaki Blevins Jr., M.D. [address] [phone] Presbyopia (Primary Dx) Social History Tobacco Use Types Packs/Day Years Used Date Smoking Tobacco: Never Smokeless Tobacco: Never Alcohol Use Standard Drinks/Week Comments Never 0 (1 standard drink = 0.6 oz pur e alcohol) [facility] Utilities Answer Date Recorded In the past 12 months has e electric, gas, oil, or water company threatened to [...] week 07/29/2022 How often do you attend [facility] or sikh services? More than 4 times per year 07/29/2022 Do you belong to any clubs o r organizations such as episcopalian groups, unions, fraternal or athletic groups, or [...] Answer Date Recorded PHQ-2 Score 0 11/06/2023 [facility] of Occupat ional Health - Occupational Stress [...] your living situation today? I have a [facility] place to live 11/06/2023 Education Answer Date Recorded What is the highest level of school you have completed or the highest degree you have received? 12th grade 04/17/2019 Comments No Sex and Gender Information Value Date Recorded Sex Assigned at Female 03/05/2023 3:59 PM CDT Legal Sex Female 8:30 AM QUENCHER OPERATOR Gender Identity Female 10/16/2018 8:13 AM CDT Sexual Orientation Straight 10/16/2018 8: 13 AM CDT documented as of this encounter Progress Notes * Zaki Blevins Jr., M.D. - 03/05/2024 2:45 PM CDT Clarita Grimaldo was seen today for Decreased Visual Acuity Multiple issues with current glasses; have glasses remade. RTO prn documented in this encounter Plan of Treatment Upcoming Encounters Date Type Department Care Team (Latest Contact Info) Description 05/14/2024 11:10 AM QUENCHER OPERATOR Appointment Department of Laboratory Medicine in [place], [place] [address] [place] [address] Gabby Dupree P.A.-CElaine [address] [phone] 05/17/2024 11:00 AM QUENCHER OPERATOR Comprehensive Visit Department of Family Medicine, [facility], in [place], [place] [address] [place] [address] Gabby Dupree P.A.-CElaine [address] [phone] 07/16/2024 9:15 AM QUENCHER OPERATOR Comprehensive Visit Department of Ophthalmology in [place], [place] [address] [place] [phone] Zaki Blevins Jr., M.D. [address] [phone] documented as of this encounter Visit Diagnoses Diagnosis Presbyopia- Primary documented in this encounter Additional Health Concerns Assessment Noted Time PHQ-9 Depression Total Score: 2 07/21/19 24 9:43 AM QUENCHER OPERATOR documented as of this encounter Care Teams Last Turner Relationship Specialty Start Date End Date Gabby Dupree P.A.-C. [address] [phone] PCP - General Family Medicine 05/18/20 documented as of this encounter
--- OUTSIDE RECORDS SUMMARY | 2024-05-03 21:04 | XMS_ITS | Encounter Summary ---
Author Organization [facility] Address [address] [place] [address] Care Team Providers Care Cloth Grader Supervisor Name Role Phone Gabby DupreeAElaine-CElaine Primary Care Provider +1- [phone] Reason for Visit * MRI/CAT/PET Scan (Routine) - Closed Specialty Diagnoses / Procedures Referred By Wagner whitten Referred To Contact Radiology Diagnoses Diarrhea Procedures CT Abdomen Pelvis with IV Contrast CT Abdomen with IV Contrast CT Abdomen without IV Contrast Enrique Schumacher PElaineAElaine-CElaine [address] [place] [address] Phone: tel: fax: [facility] Region Referral ID Status Reason Start Date Expiration Date Visits Re quested Visits Authorized [id number] Closed 04/17/2024 04/17/2025 1 1 Encounter Details Date Type Department Care Team (Latest Contact Info) Description 04/17/2024 2:31 PM CDT - 04/17/2024 11:59 PM CDT Hospital Encounter Department of Radiology in [place], [place] [address] [place] [address] Enrique Schumacher P.AElaine-CElaine [address] [place] [address] Diarrhea Discharge Disposition: Home or Self Care Social History Tobacco Use Types Packs/Day Years Used Date Smoking Tobacco: Never Smokeless Tobacco: Never Alcohol Use Standard Drinks/Week Comments Never 0 (1 standard drink = 0.6 oz pur e alcohol) [facility] Utilities Answer Date Recorded In [...] often do you attend chur ch or samaritan services? More than 4 times per year 07/29/2022 Do you belong to any clubs o r organizations such as voodoo groups, unions, fraternal or athletic groups, or [...] your living situation today? I have a [facility] place to live 11/06/2023 Education Answer Date Recorded What is the highest level of school you have completed or the highest degree you have received? 12th grade 04/17/2019 Comments No Sex and Gender Information Value Date Recorded Sex Assigned at Female 03/05/2023 3:59 PM CDT Legal Sex Female 8:30 AM SUPERVISOR RUBBER COVERING Gender Identity Female 10/16/2018 8:13 AM CDT [...] (Latest Contact Info) Description 05/14/2024 11:10 AM SUPERVISOR RUBBER COVERING Appointment Department of Laboratory Medicine in [address] [phone] Gabby Dupree P.A.-C. [address] [place] [phone] 05/17/2024 11:00 AM SUPERVISOR RUBBER COVERING Comprehensive Visit Department of Family Medicine, [facility], in [address] [phone] Gabby Dupree P.A.-C. [address] [phone] 07/16/2024 9:15 AM SUPERVISOR RUBBER COVERING Comprehensive Visit Department of Ophthalmology in [place], [place] [address] [place] [phone] Zaki Blevins Jr., M.D. [address] [phone] documented as of this encounter Procedures Procedure Name Priority Date/Time Associated Diagnosis Comments CT ABDOMEN PELVIS WITH IV CONTRAST RAD - Semiurgent (Fast; most ED patients; some inpatients) 04/17/2024 4:11 PM CDT Diarrhea documented in this encounter Results * CT Abdomen Pelvis with IV Contrast [...] findings in the abdomen or pelvis. Enrique HILL CT PROCEDURES Daksha l Result documented in this encounter Visit Diagnoses Diagnosis Diarrhea documented in this encounter Administered Medications Inactive Administered Medications - up to 3 most recent administrations Medication Order MAR Action Action Date Dose Rate Site iohexoL 300 mg iodine/mL solution 100 mL (Omnipaque) 100 mL, intravenous, Once in imaging, contrast, Starting on Mon04/17/24 at 1613, For 1 dose Given 04/17/2024 4:10 PM CDT 100 mL iohexoL 300 mg iodine/mL solution 73 mL (Omnipaque) 73 mL, intravenous, Once in imaging, contrast, Starting on Mon04/17/24 at 1613, For 1 dose Given 04/17/2024 4:10 PM CDT 73 mL sodium chloride 0.9 % flush 93 mL 93 mL, intravenous, Once, On Mon04/17/24 at 1630, For 1 dose Given 04/17/2024 4:10 PM CDT 93 mL sodium chloride 0.9 % injection 10 mL 10 mL, intravenous, Once, On Mon04/17/24 at 1630, For 1 dose Given 04/17/2024 4:10 PM CDT 10 mL documented in this encounter Additional Health Concerns Assessment Noted Time PHQ-9 Depression Total Score: 2 07/21/19 24 9:43 AM SUPERVISOR RUBBER COVERING documented as of this encounter Care Teams Cloth Grader Supervisor Relationship Specialty Start Date End Date Gabby Dupree P.A.-C. [address] [place] [phone] PCP - General Family Medicine 05/18/20 documented as of this encounter
--- OUTSIDE RECORDS SUMMARY | 2024-05-03 21:04 | XMS_ITS | Encounter Summary ---
Author Organization [facility] Address [address] [place] [address] Care Team Providers Care Financial Officer Name Role Phone Gabby Dupree P.A.-C. Primary Care Provider +1- [phone] Encounter Details Date Type Department Care Team (Latest Contact Info) Description 04/17/2024 1:50 PM CDT - 04/17/2024 2:11 PM CDT Hospital Encounter Department of Laboratory Medicine in [place], [place] [address] [place] [address] Enrique Schumacher P.A.-Regino [address] [place] [phone] Diarrhea Discharge Disposition: Home or [...] How often do you attend chur or restorationist services? More than 4 times per year 07/29/2022 Do you belong to any clubs o r organizations such as quaker groups, unions, fraternal or athletic groups, or [...] Answer Date Recorded PHQ-2 Score 0 11/06/2023 [facility] - Occupational Stress [...] your living situation today? I have a [facility] place to live 11/06/2023 Education Answer Date Recorded What is the highest level of school you have completed or the highest degree you have received? 12th grade 04/17/2019 Comments No Sex and Gender Information Value Date Recorded Sex Assigned at Female 03/05/2023 3:59 PM CDT Legal Sex Female 8:30 AM METER SHOP SUPERVISOR Gender Identity Female 10/16/2018 8:13 AM CDT [...] (Latest Contact Info) Description 05/14/2024 11:10 AM METER SHOP SUPERVISOR Appointment Department of Laboratory Medicine in [address] [phone] Gabby Dupree P.AElaine-CElaine [address] [place] [phone] 05/17/2024 11:00 AM METER SHOP SUPERVISOR Comprehensive Visit Department of Family Medicine, [facility], in [address] [phone] Gabby Dupree P.AElaine-CElaine [address] [place] [phone] 07/16/2024 9:15 AM METER SHOP SUPERVISOR Comprehensive Visit Department of Ophthalmology in [place], [place] [address] [place] [phone] Zaki Blevins Jr., M.D. [address] [place] [phone] documented as of this encounter Procedures Procedure Name Priority Date/Time Associated Diagnosis Comments URINALYSIS WITH MICROSCOPIC IF INDICATED, U Routine 04/17/2024 2:21 PM CDT URINALYSIS WITH MICROSCOPIC IF INDICATED, U Routine 04/17/2024 2:21 PM CDT Diarrhea FL URINALYSIS AUTO WO MICRO Routine 04/17/2024 2:21 PM CDT BACTERIAL CULTURE, AEROBIC + SUSC, URINE Routine 04/17/2024 2:21 PM CDT Diarrhea documented in this encounter Results * (ABNORMAL) Microscopic Automated (04/17/2024 2:21 PM [...] P.A.-C. LAB URINE ORDERABLES F inal Result [facility] [address] [place] [address], [facility] [place] [address] [place] [address] * (ABNORMAL) Urinalysis with Microscopic if Indicated (04/17/2024 2:21 PM CDT) Source Urine, Urine, Midstream 04/17/2024 2:54 PM [...] 8.0 04/17/2024 2:58 PM CDT [facility] Specific Waldo 1.012 1.001 - 1.035 04/17/2024 2:58 PM CDT [facility] Urobilinogen 0.2 0.2 - 1.0 mg/dL 04/17/2024 2:58 PM CDT [facility] Urine 04/17/2024 2:21 PM CDT 04/17/2024 2:54 PM CDT us Enrique HugoC. LAB URINE ORDERABLES F inal Result Performing Organization Address City/[facility]/ZIP Co de Phone Number [facility] [address] [place] [address], [facility] OWAT [facility] [place] [address] [place] [address] * Bacterial Culture, Aerobic + Susceptibility, Urine (04/17/2024 2:21 PM CDT) Urine Culture No growth after 1 day of incubation. 04/18/2024 12:46 PM CDT [facility] Urine (Urine, Midstream) 04/17/2024 2:21 PM CDT 04/17/2024 7:08 PM CDT Comment:Specimen Source Site : Urine us Enrique HugoC. LAB MICROBIOLOGY - GEN ERAL ORDERABLES Final Result Performing Organization Address [facility]/ZIP Co de Phone Number [facility] [address] [place] [address], [place] TO [facility] in [place] [address] [place] [address] * Urinalysis with Microscopic if Indicated (04/17/2024 2:21 PM CDT) Source CANCELED 04/17/2024 2:54 PM CDT [facility] Comment: REVISED RESULTS ----PREVIOUSLY REPORTED ---- Urine, Urine, Midstream, Flagged as: N/A (Reported 04/17/2024 14:29) Clarity CANCELED 04/17/2024 2:54 PM CDT [facility] Comment:Result canceled by t he ancillary. Color CANCELED 04/17/2024 2:54 PM CDT [facility] Comment:Result canceled by t he ancillary. Blood CANCELED 04/17/2024 2:54 PM CDT [facility] Comment:Result canceled by t he ancillary. Nitrite CANCELED 04/17/2024 2:54 PM CDT [facility] Comment:Result canceled by t he ancillary. Leukocyte Esterase CANCELED 04/17/2024 2:54 PM CDT [facility] Comment:Result canceled by t he ancillary. Protein CANCELED 04/17/2024 2:54 PM CDT [facility] Comment:Result canceled by t he ancillary. Glucose CANCELED 04/17/2024 2:54 PM CDT [facility] Comment:Result canceled by t he ancillary. Ketones, QI(U) CANCELED 04/17/2024 2:54 PM CDT [facility] Comment:Result canceled by t he ancillary. Bilirubin CANCELED 04/17/2024 2:54 PM CDT [facility] Comment:Result canceled by t he ancillary. pH CANCELED 04/17/2024 2:54 PM CDT [facility] Comment:Result canceled by t he ancillary. Specific [place]do CANCELED 04/17/20 24 2:54 PM CDT [facility] Comment:Result canceled by t he ancillary. Urobilinogen CANCELED 04/17/2024 2:54 PM CDT [facility] Comment:Result canceled by t he ancillary. Urine (Urine, Midstream) 04/17/2024 2:21 PM CDT 04/17/2024 2:29 PM CDT Narrative [facility] - 04/17/2024 2:54 PM CDT Urinalysis, w/ Micro if Indicated was cancelled on 04/17/2024 at 14:54; More appropriate testing was ordered per lab protocol. us Enrique Schumacher P.A.-C. LAB URINE ORDERABLES E dited Result - Final [facility] [address] [place] [address], [facility] OW[facility] [place] [address] [place] [address] documented in this encounter Visit Diagnoses Diagnosis Diarrhea documented in this encounter Additional Health Concerns Assessment Noted Time PHQ-9 Depression Total Score: 2 07/21/19 24 9:43 AM METER SHOP SUPERVISOR documented as of this encounter Care Teams Financial Officer Relationship Specialty Start Date End Date Gabby Dupree P.A.-C. [address] [place] [phone] PCP - General Family Medicine 05/18/20 documented as of this encounter
--- OUTSIDE RECORDS SUMMARY | 2024-05-03 21:04 | XMS_ITS | Encounter Summary ---
Author Organization [facility] Address [address] [place] [address] Care Team Providers Care Starch Dumper Name Role Phone Gabby Dupree P.A.-C. Primary Care Provider +1- [phone] Encounter Details Date Type Department Care Team (Late st Contact Info) Description 04/20/2024 Documentation Department of Family Medicine, [facility], in [place], [place] [address] [place] [phone] Himanshu Barry M.D. [address] [place] [phone] Social History Tobacco Use Types Packs/Day Years Used Date Smoking Tobacco: Never Smokeless Tobacco: Never Alcohol Use Standard Drinks/Week Comments Never 0 (1 standard drink = 0.6 oz pur e alcohol) [facility] Utilities Answer Date Recorded In the past 12 months has [facility] [employer], gas, oil, or water [employer] threatened to shut off services in your [...] often do you attend chur ch or nondenominational services? More than 4 times per year 07/29/2022 Do you belong to any clubs o r organizations such as scientologist groups, unions, fraternal or athletic groups, or [...] Answer Date Recorded PHQ-2 Score 0 11/06/2023 [facility] - Occupational [...] your living situation today? I have a [facility] place to live 11/06/2023 Education Answer Date Recorded What is the highest level of school you have completed or the highest degree you have received? 12th grade 04/17/2019 Comments No Sex and Gender Information Value Date Recorded Sex Assigned at Female 03/05/2023 3:59 PM CDT Legal Sex Female 8:30 AM SECRETARIAL TEACHER Gender Identity Female 10/16/2018 8:13 AM CDT Sexual Orientation Straight 10/16/2018 8: 13 AM CDT documented as of this encounter Progress Notes * Himanshu Barry M.D. - 04/20/2024 12:44 PM CDT Diarrhea more than 7 days. GI pathogen positive enteroaggregative E. Coli. Spoke with patient by phone, still having watery stools multiple times a day. Starting to feel weak. WBC elevated. Discussedtreatment, decided on Cipro for 7 days. Continue to hydrate. Contact primary provider in 2 days if not starting to improve. If symptoms worsen, continues to be weak, go to the ER. documented in this encounter Plan of Treatment Upcoming Encounters Date Type Department Care Team (Latest Contact Info) Description 05/14/2024 11:10 AM SECRETARIAL TEACHER Appointment Department of Laboratory Medicine in [place], [place] [address] [place] [phone] Gabby Dupree P.A.-C. [address] [phone] 05/17/2024 11:00 AM SECRETARIAL TEACHER Comprehensive Visit Department of Family Medicine, [facility], in [address] [phone] Gabby Dupree P.A.-C. [address] [phone] 07/16/2024 9:15 AM SECRETARIAL TEACHER Comprehensive Visit Department of Ophthalmology in [place], [place] [address] [phone] Zaki Blevins Jr., M.D. [address] [phone] documented as of this encounter Visit Diagnoses Diagnosis Diarrhea Escherichia Coli Enteropathogenic- Primary documented in this encounter Additional Health Concerns Assessment Noted Time PHQ-9 Depression Total Score: 2 07/21/19 24 9:43 AM SECRETARIAL TEACHER documented as of this encounter Care Teams Starch Dumper Relationship Specialty Start Date End Date Gabby Dupree P.A.-C. [address] [phone] PCP - General Family Medicine 05/18/20 documented as of this encounter
--- OUTSIDE RECORDS SUMMARY | 2024-05-03 21:04 | XMS_ITS | Encounter Summary ---
Author Organization [facility] Address [address] [place] [address] Care Team Providers Care Telegraphic Typewriter Installer Name Role Phone Gabby Dupree P.A.-C. Primary Care Provider +1- [phone] Encounter Details Date Type Department Care Team (Latest Contact Info) Description 04/17/2024 11:34 AM CDT - 04/17/2024 11:59 PM CDT Hospital Encounter Department of Laboratory Medicine, [facility], in [place], [place] [address] [place] [address] Enrique Schumacher, PTiny-Regino [address] [place] [phone] Discharge Disposition: Home or Self Care Social [...] week 07/29/2022 How often do you attend [facility] or baptism services? More than 4 times per year 07/29/2022 Do you belong to any clubs o r organizations such as anglican groups, unions, fraternal or athletic groups, or [...] your living situation today? I have a [facility] place to live 11/06/2023 Education Answer Date Recorded What is the highest level of school you have completed or the highest degree you have received? 12th grade 04/17/2019 Comments No Sex and Gender Information Value Date Recorded Sex Assigned at Female 03/05/2023 3:59 PM CDT Legal Sex Female 8:30 AM TRACK MACHINE OPERATOR REPAIRER Gender Identity Female 10/16/2018 8:13 AM CDT [...] (Latest Contact Info) Description 05/14/2024 11:10 AM TRACK MACHINE OPERATOR REPAIRER Appointment Department of Laboratory Medicine in [address] [phone] Gabby Dupree P.A.-C. [address] [phone] 05/17/2024 11:00 AM TRACK MACHINE OPERATOR REPAIRER Comprehensive Visit Department of Family Medicine, [facility], in [address] [phone] Gabby Dupree P.A.-CElaine [address] [phone] 07/16/2024 9:15 AM TRACK MACHINE OPERATOR REPAIRER Comprehensive Visit Department of Ophthalmology in [place], [place] [address] [phone] Zaki Blevins Jr., M.D. [address] [phone] documented as of this encounter Visit Diagnoses Not on filedocumented in this encounter Additional Health Concerns Assessment Noted Time PHQ-9 Depression Total Score: 2 07/21/19 24 9:43 AM TRACK MACHINE OPERATOR REPAIRER documented as of this encounter Care Teams Telegraphic Typewriter Installer Relationship Specialty Start Date End Date Gabby Dupree P.A.-C. [address] [phone] PCP - General Family Medicine 05/18/20 documented as of this encounter
--- OUTSIDE RECORDS SUMMARY | 2024-05-03 21:04 | XMS_ITS | Encounter Summary ---
Author Organization [facility] Address [address] [place] [address] Care Team Providers Care Environmental Lawyer Name Role Phone Gabby Dupree P.A.-C. Primary Care Provider [phone] Reason for Visit * Reason Comments Diarrhea Has rebeca going on for about a week * Appointment Request (Routine) - Closed Specialty Diagnoses / Procedures Referred By Wagner t Referred To Contact Family Medicine Referral ID Status Reason Start Date Expiration Date Visits Re quested Visits Authorized [id number] Closed 04/17/2024 04/17/2025 1 1 Encounter Details Date Type Department Care Team (Late Contact Info) Description 04/17/2024 1:00 PM CDT Office Visit Department of Family Medicine, [facility], in [place], [place] [address] [place] [phone] Enrique Schumacher, PTiny-Regino [address] [place] [phone] Diarrhea (Primary Dx); Sclerosis Aortic Valve Social History Tobacco Use Types Packs/Day Years Used Date Smoking Tobacco: Never Smokeless Tobacco: Never Alcohol Use Standard Drinks/Week Comments Never 0 (1 standard drink = 0.6 oz pur e alcohol) [facility] Utilities Answer Date Recorded In the past [...] week 07/29/2022 How often do you attend [facility] or yazidi services? More than 4 times per year 07/29/2022 Do you belong to any clubs o r organizations such as druze groups, unions, fraternal or athletic groups, or [...] Answer Date Recorded PHQ-2 Score 0 11/06/2023 [facility] of Occupat ional Health - Occupational Stress [...] your living situation today? I have a [facility] place to live 11/06/2023 Education Answer Date Recorded What is the highest level of school you have completed or the highest degree you have received? 12th grade 04/17/2019 Comments No Sex and Gender Information Value Date Recorded Sex Assigned at Female 03/05/2023 3:59 PM CDT Legal Sex Female 8:30 AM STEAM METER READER Gender Identity Female 10/16/2018 8:13 AM CDT Sexual Orientation Straight 10/16/2018 8: 13 AM CDT documented as of this encounter Last Filed Vital Signs Vital Sign Reading Time Taken Comments Blood Pressure 132/81 04/17/2024 12:57 PM CDT Pulse 78 04/17/2024 12:57 PM CDT Temperature 36.1 ??C (96.9 ??F) 04/17/2024 12:57 PM C DT Respiratory Rate 16 04/17/2024 12:57 PM CDT Oxygen Saturation - - Inhaled Oxygen Concentration - - Weight 104 kg (229 lb 4.5 oz) 04/17/2024 12:57 P M CDT Height 153.3 cm (5' 0.35) 04/17/2024 12:57 PM C DT Body Mass Index 44.25 04/17/2024 12:57 PM CDT documented in this encounter Progress Notes * Enrique Schumacher P.A.-C. - 04/17/2024 1:00 PM CDT SUBJECTIVE CHIEF COMPLAINT / REASON FOR VISIT Clarita Grimaldo is a 78 y.o. female who presents for evaluation of Diarrhea (Has rebeca going on forabout a week). HISTORY OF PRESENT ILLNESS Clarita presents today with abdominal pain and watery diarrhea for the last 5-7 days. There has not been any blood in her diarrhea but she says it is persistent and she goes multiple times during the day. She has a history of pancreatitis. She also has a history of diverticulitis she does have ongoingabdominal discomfort. 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 PHYSICAL EXAMINATION In general she appears in no acute distress Oropharynx is moist Heart: Regular rate and rhythm with a 2/6 systolic murmur Lungs: Clear to auscultation Abdomen: Soft to palpation positive bowel sounds she has some discomfort to palpation in the right lower quadrant. She has some mild guarding no rigidity or rebound tenderness is noted. ASSESSMENT / PLAN #1 Diarrhea I am going to do some blood work a urinalysis and a CT scan. I will try to get the CT scan today. Further recommendations pending these results #2 Sclerosis Aortic Valve Her last echo was a few years ago that showed some mild aortic sclerosis. Total time spent 30 minute Enrique Schumacher P.A.-C. documented in this encounter Plan of Treatment Upcoming Encounters Date Type Department Care Team (Latest Contact Info) Description 05/14/2024 11:10 AM STEAM METER READER Appointment Department of Laboratory Medicine in [address] [phone] Gabby Dupree P.A.-C. [address] [phone] 05/17/2024 11:00 AM STEAM METER READER Comprehensive Visit Department of Family Medicine, [facility], in [address] [phone] Gabby Dupree P.A.-C. [address] [place] [phone] 07/16/2024 9:15 AM STEAM METER READER Comprehensive Visit Department of Ophthalmology in [place], [place] [address] [place] [phone] Zaki Blevins Jr., M.D. [address] [phone] documented as of this encounter Results * Lipase (04/17/2024 2:27 PM CDT) Lipase, P 33 13 - 60 U/L 04/17/2024 3: 30 PM CDT OWAT Blood (Blood, Venous) 04/17/2024 2:27 PM CDT 04/17/2024 2:29 PM CDT Enrique HugoC. LAB BLOOD ADD-ON Final Result Performing Organization Address [facility]/ZIP Co de Phone Number [facility] [address] [place] [address], [place] OW[facility] [place] [address], [place] [address] * Amylase, Total (04/17/2024 2:27 PM CDT) Amylase, Total, P 32 28 - 100 U/L 04/17/2024 3:30 PM CDT OWAT Blood (Blood, Venous) 04/17/2024 2:27 PM CDT 04/17/2024 2:29 PM CDT Enrique HugoC. LAB BLOOD ADD-ON Final Result Performing Organization Address [facility] Co de Phone Number [facility] [address] [place] [address], [place] [facility] [facility] in [place] [address], [place] [address] * (ABNORMAL) Comprehensive Metabolic Panel (04/17/2024 2:27 [...] Schumacher P.A.-C. LAB BLOOD ADD-ON Final Result [facility] [address] [place] [address], [place] [facility] [facility] [place] [address] [place] [address] * (ABNORMAL) CBC with Differential, Blood (04/17/2024 [...] Schumacher P.A.-C. LAB BLOOD ADD-ON Final Result [facility] [address] [place] [address], [facility] OW[facility] in [place] [address] [place] [address] * Bacterial Culture, Aerobic + Susceptibility, Urine (04/17/2024 2:21 PM CDT) Urine Culture No growth after 1 day of incubation. 04/18/2024 12:46 PM CDT [facility] Urine (Urine, Midstream) 04/17/2024 2:21 PM CDT 04/17/2024 7:08 PM CDT Comment:Specimen Source Site : Urine us Enrique Schumacher P.A.-C. LAB MICROBIOLOGY - GEN ERAL ORDERABLES Final Result [facility] [address] [place] [address], [facility]TO [facility] in [place] [address] [place] [address] * Urinalysis with Microscopic if Indicated (04/17/2024 [...] Comment:Result canceled by t he ancillary. Specific [place] CANCELED 04/17/20 24 2:54 PM CDT OWAT Comment:Result canceled by t he ancillary. Urobilinogen CANCELED 04/17/2024 2:54 PM CDT OWAT Comment:Result canceled by t he ancillary. Urine (Urine, Midstream) 04/17/2024 2:21 PM CDT 04/17/2024 2:29 PM CDT Narrative [facility] - 04/17/2024 2:54 PM CDT Urinalysis, w/ Micro if Indicated was cancelled on 04/17/2024 at 14:54; More appropriate testing was ordered per lab protocol. us Enrique Schumacher P.A.-C. LAB URINE ORDERABLES E dited Result - Final [facility] [address], [place] [address], [facility] OWAT [facility] [place] [address] [place] [address] documented in this encounter Visit Diagnoses Diagnosis Diarrhea- Primary Sclerosis Aortic Valve Diarrhea documented in this encounter Additional Health Concerns Assessment Noted Time PHQ-9 Depression Total Score: 2 07/21/19 24 9:43 AM STEAM METER READER documented as of this encounter Care Teams Environmental Lawyer Relationship Specialty Start Date End Date Gabby Dupree P.A.-C. [address] [place] [phone] PCP - General Family Medicine 05/18/20 documented as of this encounter
--- OUTSIDE RECORDS SUMMARY | 2024-05-03 21:04 | XMS_ITS | Encounter Summary ---
Author Organization [facility] Address [address] [place] [address] Care Team Providers Care Family Medicine Resident Name Role Phone Gabby Dupree P.A.-C. Primary Care Provider [phone]- [phone] Encounter Details Date Type Department Care Team (Latest Contact Info) Description 04/19/2024 1:20 PM CDT - 04/19/2024 11:59 PM CDT Hospital Encounter Department of Laboratory Medicine in [place], [place] [address] [place] [phone] Enrique Schumacher P.A.-Regino [address] [place] [phone] Diarrhea Discharge Disposition: Home or Self Care Social History Tobacco Use Types Packs/Day Years Used Date Smoking Tobacco: Never Smokeless Tobacco: Never Alcohol Use Standard Drinks/Week Comments Never 0 (1 standard drink = 0.6 oz pur e alcohol) [facility] Utilities Answer Date Recorded In [...] any clubs o r organizations such as pentecostal groups, unions, fraternal or athletic groups, or [...] Answer Date Recorded PHQ-2 Score 0 11/06/2023 [facility] of Occupat ional Health - Occupational [...] your living situation today? I have a [facility] place to live 11/06/2023 Education Answer Date Recorded What is the highest level of school you have completed or the highest degree you have received? 12th grade 04/17/2019 Comments No Sex and Gender Information Value Date Recorded Sex Assigned at Female 03/05/2023 3:59 PM CDT Legal Sex Female 8:30 AM EDGE GLUE MACHINE TENDER Gender Identity Female 10/16/2018 8:13 AM CDT [...] (Latest Contact Info) Description 05/14/2024 11:10 AM EDGE GLUE MACHINE TENDER Appointment Department of Laboratory Medicine in [address] [phone] Gabby Dupree P.AElaine-CElaine [address] [phone] 05/17/2024 11:00 AM EDGE GLUE MACHINE TENDER Comprehensive Visit Department of Family Medicine, [facility], in [address] [phone] Gabby Dupree P.AElaine-CElaien [address] [phone] 07/16/2024 9:15 AM EDGE GLUE MACHINE TENDER Comprehensive Visit Department of Ophthalmology in [place], [place] [address] [place] [phone] Zaki Blevins Jr., M.D. [address] [phone] documented as of this encounter Procedures Procedure Name Priority Date/Time Associated Diagnosis Comments GI PATHOGEN PANEL, PCR, F Routine 04/19/2024 2:37 PM CDT Diarrhea documented in this encounter Results * (ABNORMAL) GI Pathogen [...] AM CDT [facility] Adenovirus F40/41 Negative Negative 12:59 AM CDT [facility] Astrovirus Negative Negative 04/20/2024 12:59 AM CDT [facility] Norovirus GI/GII Negative Negative 04/20/20 12:59 AM CDT [facility] Rotavirus Ag, F Negative Negative 12:59 AM CDT [facility] Sapovirus Negative Negative 04/20/2024 12:59 AM CDT [facility] Comment: ----ADDITIONAL INFORMATION---- This assay is performed using the FDA-cleared HelioVolt GI Panel ([employer] Semi-Urgent This is a semi-urgent result(DODD) [facility] Stool (Stool) 04/19/2024 2:3 7 PM CDT 04/19/2024 9:48 PM CDT us Enrique Schumacher P.A.-C. LAB MICROBIOLOGY - GEN ERAL ORDERABLES Final Result [facility] [address] [place] [address], [facility] [address] [place] [address] documented in this encounter Visit Diagnoses Diagnosis Diarrhea documented in this encounter Additional Health Concerns Assessment Noted Time PHQ-9 Depression Total Score: 2 07/21/19 24 9:43 AM EDGE GLUE MACHINE TENDER documented as of this encounter Care Teams Family Medicine Resident Relationship Specialty Start Date End Date Gabby Dupree P.A.-C. [address] [place] [phone] PCP - General Family Medicine 05/18/20 documented as of this encounter
--- OUTSIDE RECORDS SUMMARY | 2024-05-03 21:04 | XMS_ITS ---
Author Organization [facility] Address [address] [place] [address] Care Team Providers Care Edge Grinder Machine Name Role Phone Unavailable Unavailable Unavailable Surgery Details Not on file Complications Check Surgery Details section. Procedure Estimated Blood Loss Check Surgery Details section. Procedure Findings Check Surgery Details section. Procedure Specimens Taken Check Surgery Details section.
--- OUTSIDE RECORDS SUMMARY | 2024-05-03 21:05 | XMS_ITS | Clinical Summary ---
Author Organization [facility] Address [place], [place] [address] Care Team Providers Care Contracts Manager Name Role Phone Gabby Dupree PA-C Primary Care Provider [phone] Allergies Active Allergy Reactions Criticality Noted Date Comments Morphine Headache 12/15/2008 Medications Medication Sig Dispensed Refills Start Date End Date Status clobetasol 0.05% (TEMOVATE 0.05% OINTMENT) 0.05 % ointment Apply topically to affected area(s) one time if needed for Other (Specify) (3 mm dot, apply bedtime). Active omeprazole (PRILOSEC) 20 mg Delayed-Release capsule Take 20 mg by mouth once daily before a meal. 09/19/2016 Active calcium carbonate-vitamin D3, 600 mg-400 unit, (CALCIUM 600 + D) 600 mg(1,500mg) -400 unit tablet Take 1 Tablet by mouth once daily. Active aspirin chewable 81 mg chewable tablet Take 81 mg by mouth at bedtime. Active sertraline (ZOLOFT) 50 mg tablet Take 50 mg by mouth every morning. 12/04/2018 Active lisinopriL (PRINIVIL; ZESTRIL) 40 mg tablet Take 40 mg by mouth once daily. Active fluticasone (50 mcg per actuation) nasal solution (FLONASE) Inhale 1 [place] to both nostrils once daily if needed for Rhinitis. 07/07/2020 Active hydroCHLOROthiazid e 12.5 mg tablet Take 12.5 mg by mouth once daily. 11/11/2021 Active blood sugar diagnostic (Blood Glucose Test) strip Check blood sugars 1 time daily. 11/02/2021 Active atorvastatin (LIPITOR) 80 mg tablet Take 80 mg by mouth at bedtime. 12/15/2021 Active albuterol HFA (PRO-AIR; VENTOLIN; PROVENTIL) 90 mcg/actuation inhalerIndications :Cough, unspecified type,Bronchitis Inhale 1-2 Puffs by mouth every 4 hours if needed for Wheezing (cough). 8.5 g 07/19/2022 Active glipiZIDE extended-release (GLUCOTROL XL) 2.5 mg Extended-Release tablet Take 2.5 mg by mouth at bedtime. 07/29/2022 Active albuterol-ipratrop ium (DUONEB) (2.5-0.5 mg) in 3 mL NEBULIZATION solution USE 3 ML VIA NEBULIZER FOUR TIMES DAILY NEEDED FOR WHEEZING OR SHORTNESS OF BREATH 09/16/2022 Active iron,carbonyl-tariq min C (VITRON C) 65 mg iron- 125 mg Delayed-Release tablet Take 1 Tablet by mouth once daily with a meal. Active amLODIPine (NORVASC) 5 mg tablet Take 5 mg by mouth once every other day. Active loperamide (IMODIUM) 2 mg capsuleIndications :Diarrhea, unspecified type Take 2 capsules (4mg) orally with 1st loose stool, then 1 capsule (2mg) with other loose stools. Max 16 mg in 24 hrs. 40 Capsule 09/29/2023 Active albuterol 0.083% (2.5 mg/3 mL) neb solutionIndication s:Wheezing Inhale 3 mL (2.5 mg) via a nebulizer every 6 hours if needed for Shortness Of Breath or Wheezing. 180 mL 04/30/2024 Active albuterol HFA (PRO-AIR; VENTOLIN; PROVENTIL) 90 mcg/actuation inhalerIndications :Wheezing Inhale 2 Puffs by mouth 4 times daily if needed for Shortness Of Breath or Wheezing. 18 g 04/30/2024 Active predniSONE (DELTASONE) 20 mg tabletIndications: Wheezing Take 1 Tablet (20 mg) by mouth once daily with a meal. 3 Tablet 04/30/2024 Active predniSONE (DELTASONE) 20 mg tabletIndications: Wheezing Take 1 Tablet (20 mg) by mouth once daily with a meal for 3 days. 3 Tablet 04/30/2024 10/22/202 4 Discontinued albuterol 0.083% (2.5 mg/3 mL) neb solutionIndication s:Wheezing Inhale 3 mL (2.5 mg) via a nebulizer every 6 hours if needed for Shortness Of Breath or Wheezing. 180 mL 04/30/2024 4 Discontinued albuterol HFA (PRO-AIR; VENTOLIN; PROVENTIL) 90 mcg/actuation inhalerIndications :Wheezing Inhale 2 Puffs by mouth 4 times daily if needed for Shortness Of Breath or Wheezing. 18 g 04/30/2024 4 Discontinued Active Problems Problem Noted Date Diagnosed Date Acute cystitis without hematuria 09/28/2023 Acute pancreatitis without infection or necrosis 09/27/2023 Anemia 09/27/2023 Dysuria 09/27/2023 Type 2 diabetes mellitus with hyperglycemia 09/08 Iron deficiency anemia 05/12/2023 Overview (09/27/2023): Patient underwent EGD and colonoscopy 11/08/2022 which showed no evidence of ulcers or bleeding. Biopsies esophagus returned normal. Colonoscopy with 2 tubular adenomas <1 cm. Is recommend that she have repeat colonoscopy in 5 years for surveillance. Endoscopy only be repeated as needed. -Patient has continued with iron supplement every other day. Body mass index (BMI) 40.0-44.9, adult 3 Morbid obesity 07/27/2022 Mixed stress and urge urinary incontinence 04/02 Overview (09/27/2023): She is being effectively managed with PTNS for her urge incontinence. Recommend follow-up in 1 month. Lichen sclerosus 06/26/2017 Overview (09/27/2023): Symptoms worse when she does not use clobetasol and with antibiotic use, exam stable. No areas concerning for vulvar carcinoma. Continue Clobetasol ointment to the vulva twice weekly at bedtime. Discussed the importance of this. Will reassess vulva where ecchymosis noted when she returns for PTNS. Pneumonia of left lower lobe due to infectious o rganism 10/14/2016 Idiopathic acute pancreatitis without infection or necrosis 10/11/2016 Essential hypertension with goal blood pressure less than 140/90 10/11/2016 Esophagitis, reflux 10/11/2016 Diverticulitis of colon (without mention of hemo rrhage) 09/20/2012 Hypercholesterolemia 04/28/2011 Overview (09/27/2023): Maintained on atorvastatin 80 mg daily Moderate episode of recurrent major depressive d isorder 04/28/2011 Overview (09/27/2023): Moderate recurrent major depression Encounters Date Type Department Care Team Description 05/02/2024 9:05 PM CDT - 05/03/2024 12:[address] [facility] [address] [place] [address] Willem Rodriguez MD Bronchitis (Primary Dx); Malaise and fatigue Discharge Disposition: Home Health 05/02/2024 Travel 04/30/2024 10:19 AM CDT - 04/30/2024 12:[address] [facility] [address] [place] [address] Olivia Saba DO Wheezing (Primary Dx) Discharge Disposition: Home Self Care 04/30/2024 Travel 04/18/2024 Travel 04/17/2024 3:00 PM CDT - 04/17/2024 11:59 PM CDT Hospital Encounter [facility] [address] [place] [address] Enrique Schumacher PA Diarrhea from Last 3 Months Immunizations Name Administration Dates Next Due DT (Age < 7 years) 09/27/2000 Hepatitis B, Unspecified 05/07/2003,04/07/2003,0 10/05/2002 Influenza A (H1N1), Inactiva caitlin (Age >=3 Years) 07/31/2009 Influenza Virus, Unspecified 03/30/2017, 04/01/2016,04/01/2016,2014,04/20/2014,04/02/2013,03/25/2012,1 ,03/18/2010 Influenza, High-dose Inactivated 019,03/29/2018,03/30/2017,2015,05/05/2015 Influenza, High-dose Quadriv alent Inactivated 04/14/2020 Influenza, IIV3 (Age 6-35 mos) 03/18/2010 Influenza, IIV3 (Age >=3 years) 04/01/20 16,04/19/2014,03/25/2012,2005 Influenza, IIV4 (Age 6-35 Mos) 04/01/2013 Pneumococcal Poly,23-Valent (Pneumovax) 04/27/2012 Pneumococcal conj 13-Valent (Prevnar 13) 05/08/2015 Tdap 04/27/2012 Zoster (Shingrix-RZV, recombinant) 08/06/2019, Zoster (Zostavax-ZVL, live) 03/25/2012 Family History Medical History Relation Name Comments Cerebral aneurysm Father Aneurysm Mother abdominal aneur ysm Cancer-colon Sister 2 Relation Name Status Comments Father (Age 49) Mother (Age 69) Sister 1 Sister 2 Social History Tobacco Use Types Packs/Day Years Used Date Smoking Tobacco: Never Smokeless Tobacco: Never Alcohol Use Standard Drinks/Week Comments No 0 (1 standard drink = 0.6 oz pur e alcohol) PHQ-2 Answer Date Recorded PHQ-2 TOTAL SCORE 0 01/29/2021 Social Connections Answer Date Recorded Frequency of Communication with Friends and Fami ly 0 09/27/2023 Financial Resource Strain Answer Date R ecorded Difficulty of Paying Living Expenses 3 09/27/2023 Difficulty of Paying Living Expenses Not on file 09/27/2023 Food Insecurity Answer Date Recorded Do you worry your food will run out before you are able to buy more? 1 09/27/2023 Transportation Needs Answer Date Record ed Lack of Transportation (Medical) 1 09/27/2023 Housing Stability Answer Date Recorded What is your housing situation today? 1 09/27/2023 Sex and Gender Information Value Date Recorded Sex Assigned at Not on file Gender Identity Not on file Sexual Orientation Not on file Obstetrics History Last Filed Vital Signs Vital Sign Reading Time Taken Comments Blood Pressure 184/79 05/03/2024 12:00 AM CDT Pulse 98 05/03/2024 12:30 AM CDT Temperature 37.6 ??C (99.6 ??F) 05/02/2024 9:13 PM CD T Respiratory Rate 18 05/02/2024 9:42 PM CDT Oxygen Saturation 90% 05/03/2024 12: 30 AM CDT Inhaled Oxygen Concentration - - Weight 106.5 kg (234 lb 12.8 oz) 05/02/2024 9:11 PM CDT Height 157.5 cm (5' 2) 05/02/2024 9:11 PM CDT Body Mass Index 42.95 05/02/2024 9:11 PM CDT Plan of Treatment Health Maintenance Due Date Last Done Comments Hepatitis C screening for ag e 18-04/24/1963 DEXA/DXA scan for age 65+ 2011 Medicare Wellness for age 65+ 2011 RSV vaccine for adults or (1 - 1-dose 75+ series) 2021 BMI (ht and wt on same day) for age 18+ 01/29/2022 01/29/2021, 01/11/2019, 10/11/2016 Depression screening for age 12+ 02/09/2022 02/09/2021, 01/29/2021, 01/27/2021 Tetanus booster 04/27/2022 04/27/2012 COVID-19 vaccine series ( season) 2024 Influenza for age 65+ 03/10/2024 04/14/2020 , 04/03/2019, 03/29/2018, Additional history exists Tdap Completed 04/27/2012 Pneumococcal series for age 65+ Completed 5, 04/27/2012 Zoster (shingles) series for age 50+ Completed 08/06/2019, 04/10/2019, 03/25/2012 Procedures Procedure Name Priority Date/Time Associated Diagnosis Comments TROPONIN T (HS) ONE TIME Timed 05/02/2024 11:39 PM CDT URINALYSIS MICROSCOPIC STAT 10:24 PM CDT UA W/ SEDIMENT EXAM REFLEXED PER CRITERIA STAT 05/02/2024 10:24 PM CDT XR CHEST 1 VIEW PORTABLE STAT 05/02/2024 10:20 PM CDT EKG 12 LEAD STAT 05/02/2024 9:49 PM CDT COVID-19 MOLECULAR STAT 05/02/2024 9: 35 PM CDT CBC WITH AUTO DIFFERENTIAL STAT 05/02/2024 9:32 PM CDT PRO-BNP STAT 05/02/2024 9:32 PM CDT TROPONIN T (HS) ACUTE W/2HR REFLEX STAT 05/02/2024 9:32 PM CDT PROCALCITONIN STAT 05/02/2024 9:32 PM CDT PROTIME-INR STAT 05/02/2024 9:32 PM CDT COMP METABOLIC PANEL STAT 05/02/2024 9:32 PM CDT CBC WITH AUTO DIFFERENTIAL STAT 05/02/2024 9:32 PM CDT LACTATE VENOUS STAT 05/02/2024 9:32 PM CDT XR CHEST 2 VIEWS PA AND LATERAL STAT 04/30/2024 11:05 AM CDT INFLUENZA A/B PCR STAT 04/30/2024 10: 25 AM CDT COVID-19 MOLECULAR Today 04/30/2024 10 :[address] ABDOMEN PELVIS W Routine 04/17/2024 4 :15 PM CDT Diarrhea from Last 3 Months Results * (ABNORMAL) TROPONIN T (HS) ONE TIME (05/02/2024 11:39 PM CDT) TROPONIN T HS 17(H) 6-10 ng/L ng/L 05/02/2024 11:59 PM CDT [facility] Blood BLOOD SPECIMEN / Unknown Butterfly / Unknown 05/02/2024 11:39 PM CDT 05/02/2024 11:41 PM CDT Willem Rodriguez MD CHEMISTRY [facility] [address] [place] [address] * URINALYSIS MICROSCOPIC (05/02/2024 10:24 PM CDT) Pathologist [facility] RBC 0-2 0-2, None Seen /HPF 05/02/2024 11:01 PM CDT [facility] WBC 0-2 0-2, 3-5, None Seen /HPF 05/02/2024 11:01 PM CDT [facility] BACTERIA Rare None Seen, Rare, Few Bacteria/H PF 05/02/2024 11:01 PM CDT [facility] EPITHELIAL CELLS Few None Seen, Few Epi/HPF 05/02/2024 11:01 PM CDT [facility] Urine URINE SPECIMEN / Unknown Non-Blood / Unknown 05/02/2024 10:24 PM CDT 05/02/2024 10:28 PM CDT Willem Rodriguez MD URINE [facility] [address] [place] [address] * (ABNORMAL) URINALYSIS W REFLEX MICROSCOPIC IF POSITIVE (05/02/2024 10:24 PM CDT) COLOR Yellow Yellow Color 05/02/2024 10:32 PM CDT [facility] CLARITY Clear Clear Clarity 05/02/2024 10:32 PM CDT [facility] SPECIFIC GRAVITY,URINE 1.020 1.010, 1.015, 1.020, 1.025 05/02/2024 10:32 PM CDT [facility] PH,URINE 6.0 6.0, 7.0, 8.0, 5.5, 6.5, 7.5, 8.5 05/02/2024 10:32 PM CDT [facility] UROBILINOGEN, QUALITATIVE Normal Normal EU/dl 05/02/2024 10:32 PM CDT [facility] PROTEIN, URINE Negative Negative mg/dL 05/02/2024 10:32 PM CDT [facility] GLUCOSE, URINE Negative Negative mg/dL 05/02/2024 10:32 PM CDT [facility] KETONES,URINE Negative Negative mg/dL 05/02/2024 10:32 PM CDT [facility] BILIRUBIN,URI NE Negative Negative 05/02/2024 10:32 PM CDT [facility] OCCULT BLOOD,URINE Trace(A) Negative 05/02/2024 10:32 PM CDT [facility] NITRITE Negative Negative 05/02/2024 10:32 PM CDT [facility] LEUKOCYTE ESTERASE Negative Negative 05/02/2024 10:32 PM CDT [facility] Urine URINE SPECIMEN / Unknown Non-Blood / Unknown 05/02/2024 10:24 PM CDT 05/02/2024 10:28 PM CDT Willem Rodriguez MD URINE Performing Organization Address [facility] Co de Phone Number [facility] [address] [place] [address] * XR CHEST 1 VIEW PORTABLE (05/02/2024 10:20 PM CDT) Anatomical Region Laterality Modality HEART, THORAX, CHEST Digital Rad iography 05/02/2024 10:4 4 PM CDT Impressions 05/02/2024 10:44 PM CDT 1. Small lung volumes are noted with mild bibasilar atelectasis. Dictated by Elliott Renteria MD @ 05/02/2024 10:44:09 PM Dictated by: Elliott Renteria MD @ 05/02/2024 22:44:14 (Electronically Signed) Narrative 05/02/2024 10:44 PM CDT For Patients: ??As a result of the Cures Act, medical imaging exams and procedure reports are released immediately into your electronic medical record. ??You may view this report before your referring provider. ??If you have questions, please contact your health care provider. INDICATION: Sepsis, difficulty breathing TECHNIQUE: Chest radiograph 1 view COMPARISON: 04/30/2024 FINDINGS: The sensitivity and specificity of the exam are moderately limited by the patient`s body habitus. Mediastinum: The mediastinum is normal in appearance. The heart silhouette is normal in size and morphology. Lung: Small lung volumes are noted with mild bibasilar atelectasis. No sign of pleural effusion seen. No pneumothorax is identified. Bone and Soft tissue: Unremarkable for age. Procedure Note Elliott Renteria MD - 05/02/2024 For Patients: As a result of the Cures Act, medical imagingexams and procedure reports are released immediately into your electronicmedical record. You may view this report before your referring provider.If you have questions, please contact your health care provider. INDICATION: Sepsis, difficulty breathing TECHNIQUE: Chest radiograph 1 view COMPARISON: 04/30/2024 FINDINGS: The sensitivity and specificity of the exam are moderatelylimited by the patient`s body habitus. Mediastinum: The mediastinum is normal in appearance. The heart silhouetteis normal in size and morphology. Lung: Small lung volumes are noted with mild bibasilar atelectasis. Nosign of pleural effusion seen. No pneumothorax is identified. Bone and Soft tissue: Unremarkable for age. IMPRESSION: 1. Small lung volumes are noted with mild bibasilar atelectasis. Dictated by Elliott Renteria MD @ 05/02/2024 10:44:09 PM Dictated by: Elliott Renteria MD @ 05/02/2024 22:44:14 (Electronically Signed) Willem Rodriguez MD GENERAL IMAGIN G * EKG 12 Lead (05/02/2024 9:49 PM CDT) Interpretation Sinus tachycardia Otherwise normal ECG When compared with ECG of 27-Oct-2017 11:22, No significant change was found BEYOND NOW Ventricular Rate 111 BPM BEYOND NOW Atrial Rate 111 BPM BEYOND NOW P-R Interval 194 ms BEYOND NOW QRS Duration 78 ms BEYOND NOW QT 310 ms BEYOND NOW QTc 421 ms BEYOND NOW P Morenci 61 degrees BEYOND NOW R Morenci 20 degrees BEYOND NOW T Morenci 64 degrees BEYOND NOW 05/02/2024 9:49 PM CDT 05/03/2024 2:12 AM CDT Willem Rodriguez MD EKG ORD Performing Organization Address City/[facility]/ZIP Co de Phone Number [place] NOW [place], [place] * COVID-19 MOLECULAR (05/02/2024 9:35 PM CDT) Only the most recent of2 resultswithin the time period is included. [facility] COVID 19 [facility] MOLECULAR Not detected Not detected 05/02/2024 10:02 PM CDT [facility] TESTING LABORATORY [facility] 05/02/2024 10:02 PM CDT [facility] Comment:Specimen submitted t o [facility] for testing. Other SPECIMEN FROM NASOPHARYNGEAL STRUCTURE / Unknown Non-Blood / Unknown 05/02/2024 9:35 PM CDT 05/02/2024 9:37 PM CDT Willem Rodriguez MD MICROBIOLOGY Performing Organization Address City/[facility]/ZIP Co de Phone Number [facility] [address] [place] [phone] * (ABNORMAL) TROPONIN T (HS) ACUTE W/2HR REFLEX (05/02/2024 9:32 PM CDT) [facility] TROPONIN T HS 17(H) 6-10 ng/L ng/L 05/02/2024 10:12 PM CDT [facility] Blood BLOOD SPECIMEN / Unknown Venipuncture / Unknown 05/02/2024 9:32 PM CDT 05/02/2024 9:38 PM CDT [facility] - 05/02/2024 10:12 PM CDT hs-cTnT (Elecsys Troponin T Gen 5) concentration (s) above the sex-specific 99th percentile (16 ng/L or greater for males or 11 ng/L or greater for females) are indicative of myocardial injury. If initial hs-cTnT <=100 ng/L at presentation, a 0h/2h ABSOLUTE (ng/L) delta change (rising or falling) of >=10 ng/L suggests a significant change, whereas a 0h/2h delta change <=3 ng/L suggests no significant change. If initial hs-cTnT >100 ng/L at presentation, a 0h/2h/ RELATIVE (percent, %) delta change of 20% is suggested to distinguish patients with acute vs. chronic myocardial injury. There are multiple etiologies that can cause hs-cTnT increases above the 99th percentile (myocardial injury) other than acute myocardial infarction. Clinical context and careful clinical evaluation are critical for diagnosis and risk-stratification. The diagnosis of acute myocardial infarction requires a rising and/or falling pattern in hs-cTnT concentrations with at least one value above the sex-specific 99th percentile PLUS at least one of the following clinical criteria: ischemic symptoms, new or presumed new significant ST-T wave changes or new LBBB, development of pathological Q waves, imaging evidence of new loss of viable myocardium or new regional wall motion abnormality, or identification of intracoronary atherothrombosis or an acute angiographic culprit on coronary angiography. In appropriate low-risk patients with a non-ischemic electrocardiogram without active chest pain with a symptom onset >3-hours without recurrence, a single initial hs-cTnT<6 ng/L identifies patient with a very low risk in emergency department patient population. Willem Rodriguez MD CHEMISTRY [facility] [address] [place] [address] * (ABNORMAL) CBC WITH AUTO DIFFERENTIAL (05/02/2024 9:32 PM CDT) [facility] WHITE BLOOD COUNT 19.8(H) 4.5 - 11.0 thou/cu mm 05/02/2024 9:42 PM CDT [facility] RED BLOOD COUNT 3.77(L) 4.00 - 5.20 mil/cu mm 05/02/2024 9:42 PM [facility] HEMOGLOBIN 12.1 12.0 - 16.0 g/dL 05/02/2024 9:42 PM [facility] HEMATOCRIT 34.8 33.0 - 51.0 % 05/02/2024 9:42 PM [facility] MCV 92 80 - 100 fL 05/02/2024 9:42 PM [facility] MCH 32.1 26.0 - 34.0 pg 05/02/2024 9:42 PM [facility] MCHC 34.8 32.0 - 36.0 g/dL 05/02/2024 9:42 PM [facility] RDW 13.0 11.5 - 15.5 % 05/02/2024 9:42 PM [facility] PLATELET COUNT 282 140 - 440 thou/cu mm 05/02/2024 9:42 PM [facility] MPV 9.1 6.5 - 11.0 fL 05/02/2024 9:42 PM [facility] % NEUT 82.7 % 05/02/2024 9:42 PM [facility] % LYMPH 12.2 % 05/02/2024 9:42 PM [facility] % MONO 5.0 % 05/02/2024 9:42 PM [facility] % EOS 0.0 % 05/02/2024 9:42 PM [facility] % BASO 0.1 % 05/02/2024 9:42 PM [facility] ABSOLUTE NEUTROPHILS 16.4(H) 1.7 - 7.0 thou/cu mm 05/02/2024 9:42 PM [facility] ABSOLUTE LYMPHOCYTES 2.4 0.9 - 2.9 thou/cu mm 05/02/2024 9:42 PM [facility] ABSOLUTE MONOCYTES 1.0(H) <0.9 thou/cu mm 05/02/2024 9:42 PM [facility] ABSOLUTE EOSINOPHILS 0.0 <0.5 thou/cu mm 05/02/2024 9:42 PM CDT [facility] ABSOLUTE BASOPHILS 0.0 <0.3 thou/cu mm 05/02/2024 9:42 PM CDT [facility] Blood BLOOD SPECIMEN / Unknown Venipuncture / Unknown 05/02/2024 9:32 PM CDT 05/02/2024 9:38 PM CDT Willem Rodriguez MD HEMATOLOGY Performing Organization Address [facility]/ZIP Co de Phone Number [facility] [address] [place] [address] * LACTATE VENOUS (05/02/2024 9:32 PM CDT) LACTATE,VENOUS 1.5 0.5 - 2.0 mmol/L 05/02/2024 10:02 PM CDT [facility] Blood BLOOD SPECIMEN / Unknown Venipuncture / Unknown 05/02/2024 9:32 PM CDT 05/02/2024 9:38 PM CDT Willem Rodriguez MD CHEMISTRY Performing Organization Address [facility]/ZIP Co de Phone Number [facility] [address] [place] [address] * PROCALCITONIN (05/02/2024 9:32 PM CDT) PROCALCITONIN 0.09 ng/ml 05/02/2024 10:19 PM CDT [facility] Blood BLOOD SPECIMEN / Unknown Venipuncture / Unknown 05/02/2024 9:32 PM CDT 05/02/2024 9:38 PM CDT Narrative [facility] - 05/02/2024 10:19 PM CDT Procalcitonin for initial assessment of Lower Respiratory Tract Infection: Results Interpretation <0.10 ng/mL Antibiotic therapy strongly discoraged. ??Indicates absent of bacterial infection. * 0.10 - 0.25 ng/mL Antibiotic therapy discouraged. ??Bacterial infection unlikely. * 0.26 - 0.50 ng/mL Antibiotic therapy encouraged. ??Bacterial infection possible. >0.50 ng/mL Antibiotic therapy strongly encouraged. ??Suggestive of presence of bacterial infection. *Antibiotic therapy should be considered regardless of PCT result if the patient is clinically unstable, is at high risk for adverse outcome, has strong evidence of bacterial pathogen, or the clinical context indicates antibiotic therapy is warranted. ??If antibiotics are withheld, reassess if symptoms persist/worsen and/or repeat PCT measurement within 6-24 hours. ? In order to assess treatment success and to support a decision to discontinue antibiotic therapy, follow up samples should be tested once every 1-2 days, based upon physician discretion taking into account patient's evolution and progress. Procalcitonin for initial assessment of severe sepsis risk: Results Interpretation <0.5 ng/ml A PCT level below 0.5 ng/ml on the first day of ICU admission is associated with a low risk for progression to severe sepsis and/or septic shock. > 2.0 ng/mL A PCT level above 2.0 ng/mL on the first day of ICU admission is associated with a high risk for progression to severe sepsis and/or septic shock. Note: Concentrations < 0.5 ng/mL do not exclude an infection, on account of localized infections (without systemic signs) which can be associated with such low concentrations, or a systemic infection in its initial stages(< 6 hours). Furthermore, increased procalcitonin can occur without infection. PCT concentrations between 0.5 and 2.0 ng/mL should be interpreted taking into account the patient's history. It is recommended to retest PCT within 6-24 hours if any concentrations < 2 ng/mL are obtained. Willem Rodriguez MD SEND OUTS [facility] [address] [place] [address] * (ABNORMAL) PROTIME-INR (05/02/2024 9:32 PM CDT) [facility] Signature INR 1.1 <1.3 05/02/2024 9:52 PM CDT [facility] PROTIME 13.1(H) 10.6 - 12.4 sec 05/02/2024 9:52 PM CDT [facility] Blood BLOOD SPECIMEN / Unknown Venipuncture / Unknown 05/02/2024 9:32 PM CDT 05/02/2024 9:38 PM CDT [facility] - 05/02/2024 9:52 PM CDT ?Therapeutic Range 2.0-3.0 for most anticoagulated patients 2.5-3.5 or 4.0 for high risk patients The INR is only used for patients on stable oral anticoagulant therapy. It makes no significant contribution to the diagnosis or treatment of patients whose Protime is prolonged for other reasons. INR results are increased when heparin levels exceed 1.0 U/mL, which corresponds to an aPTT >125 seconds if the patient is on UFH. Willem Rodriguez MD HEMATOLOGY Performing Organization Address City/State/[facility] Co de Phone Number [facility] [address] [place] [address] * PRO-BNP (05/02/2024 9:32 PM CDT) PRO-BNP 267 <450 pg/mL 05/02/2024 10:14 PM CDT [facility] Blood BLOOD SPECIMEN / Unknown Venipuncture / Unknown 05/02/2024 9:32 PM CDT 05/02/2024 9:38 PM CDT [facility] - 05/02/2024 10:14 PM CDT The following cut-points have been suggested for the use of proBNP for the diagnostic evaluation of heart failure (HF) in patient with acute dyspnea. Patients with eGFR >= 60 Diagnosis (rule in CHF) ? <50 Years Old ?450 pg/mL 50 - 75 Years Old ?900 pg/mL >75 Years Old ? 1800 pg/mL Exclusion (rule out CHF) Age Independent ?300 pg/mL A cutoff of 1200 pg/mL for patients with an eGFR <60 yields a diagnostic sensitivity of 89% and specificity of 72% for acute congestive heart failure. ? Willem Rodriguez MD SEND OUTS [facility] [address] [place] [address] * (ABNORMAL) COMP METABOLIC PANEL (05/02/2024 9:32 PM CDT) SODIUM 132(L) 136 - 145 mmol/L 05/02/2024 10:12 PM [facility] POTASSIUM 3.9 3.5 - 5.1 mmol/L 05/02/2024 10:12 PM [facility] CHLORIDE 95(L) 98 - 107 mmol/L 05/02/2024 10:12 PM [facility] CO2,TOTAL 27 22 - 29 mmol/L 05/02/2024 10:12 PM [facility] ANION GAP 10 5 - 18 05/02/2024 10:12 PM [facility] GLUCOSE 193(H) 70 - 99 mg/dL 05/02/2024 10:12 PM [facility] CALCIUM 9.4 8.8 - 10.2 mg/dL 05/02/2024 10:12 PM [facility] BUN 16 8 - 23 mg/dL 05/02/2024 10:12 PM [facility] CREATININE 0.85 0.50 - 0.90 mg/dL 05/02/2024 10:12 PM CDT [facility] BUN/CREAT RATIO 19 10 - 20 10:12 PM T [facility] eGFR 70(L) >90 mL/min/1.7 3m2 05/02/2024 10:12 PM CDT [facility] Comment:As of 2021, eG FR is calculated by the CKD-EPI creatinine equation without race adjustment. ??eGFR can be influenced by muscle mass, exercise, and diet. ??The reported eGFR is an estimation only and is only applicable if the renal function is stable. ALBUMIN 4.2 4.0 - 4.9 g/dL 05/02/2024 10:12 PM T [facility] PROTEIN,TOTAL 7.9 6.0 - 8.0 g/dL 05/02/2024 10:12 PM T [facility] BILIRUBIN,TOTAL 0.3 0.0 - 1.2 mg/dL 05/02/2024 10:12 PM T [facility] ALK PHOSPHATASE 76 35 - 104 IU/L 05/02/2024 10:12 PM T [facility] ALT (SGPT) 27 10 - 35 IU/L 05/02/2024 10:12 PM T [facility] AST (SGOT) 29 10 - 35 IU/L 05/02/2024 10:12 PM CDT [facility] Blood BLOOD SPECIMEN / Unknown Venipuncture / Unknown 05/02/2024 9:32 PM CDT 05/02/2024 9:38 PM CDT Willem Rodriguez MD CHEMISTRY [facility] [address] [place] [address] * XR CHEST 2 VIEWS PA AND LATERAL (04/30/2024 11:05 AM CDT) Anatomical Region Laterality Modality CHEST, THORAX, Lung, HEART Digit al Radiography 04/30/2024 11:1 2 AM CDT Narrative 04/30/2024 11:12 AM CDT For Patients: ??As a result of the Cures Act, medical imaging exams and procedure reports are released immediately into your electronic medical record. ??You may view this report before your referring provider. ??If you have questions, please contact your health care provider. Indication: Shortness of breath. Technique: Two view(s) of the chest. Comparison: 07/19/2022. Findings: Unchanged cardiomediastinal silhouette and pulmonary vasculature. Atherosclerotic aortic calcifications. Lungs are well inflated. No focal consolidation. No pleural effusion or pneumothorax. Osseous demineralization with multilevel degenerative disc disease. Impression: No acute cardiopulmonary abnormality identified. No significant change from prior. Dictated by Francoise Lyman MD @ 04/30/2024 11:12:54 AM (Electronically Signed) Procedure Note Francoise Lyman, DO - 04/30/2024 For Patients: As a result of the Cures Act, medical imagingexams and procedure reports are released immediately into your electronicmedical record. You may view this report before your referring provider.If you have questions, please contact your health care provider. Indication: Shortness of breath. Technique: Two view(s) of the chest. Comparison: 07/19/2022. Findings: Unchanged cardiomediastinal silhouette and pulmonary vasculature.Atherosclerotic aortic calcifications. Lungs are well inflated. No focalconsolidation. No pleural effusion or pneumothorax. Osseousdemineralization with multilevel degenerative disc disease. Impression: No acute cardiopulmonary abnormality identified. No significant changefrom prior. Dictated by Francoise Lyman MD @ 04/30/2024 11:12:54 AM (Electronically Signed) Olivia Ledezma DO GENER AL IMAGING * INFLUENZA A/B PCR (04/30/2024 10:25 AM CDT) INFLUENZA A PCR NOT Detected 04/30/2024 10:50 AM CDT [facility] INFLUENZA B PCR NOT Detected 04/30/2024 10:50 AM CDT [facility] Other SPECIMEN FROM NASOPHARYNGEAL STRUCTURE / Unknown Non-Blood / Unknown 04/30/2024 10:25 AM CDT 04/30/2024 10:27 AM CDT Wan Ed Triage MICROBIOLOGY [facility] [address] [place] [address] * CT ABDOMEN PELVIS W (04/17/2024 4:15 PM CDT) Anatomical Region Laterality Modality Abdomen, Pelvis, AORTA, LIVER, SPLEEN Computed Tomography Enrique ANDRADE CT from Last 3 Months Additional Health Concerns Infection Onset Date Last Indicated MDRO Clearance Comment:Infection Control Note: Hx of MDRO, surveillance criteria met, no need for further testing or isolation precautions. Do not delete or resolve the infection flag. 02/02/2021 02/02/2021 Advance Directives Documents on File Type Date Recorded Patient Senior Product Marketing Manager Expl anation Healthcare Directive 09/29/2023 024 Healthcare Directive 02/27/2017 3:43 PM * Full Code (Latest Code Status on File) Date Activated Date Inactivated Comments 09/28/2023 9:11 AM 09/29/2023 4:48 PM Question Answer Comments Code Status Discussion: Reviewed Preferences * Full Code Date Activated Date Inactivated Comments 09/27/2023 6:22 PM 09/28/2023 9:11 AM Question Answer Comments Code Status Discussion: Unable to Assess Preferences, Provider to review later * Full Code Date Activated Date Inactivated Comments 11/08/2022 6:03 AM 11/08/2022 11:26 AM Question Answer Comments Code Status Discussion: Reviewed Preferences * Full Code Date Activated Date Inactivated Comments 09/08/2021 9:24 AM 09/08/2021 4:37 PM Question Answer Comments Code Status Discussion: Unable to Assess Preferences, Provider to review later * Full Code Date Activated Date Inactivated Comments 09/01/2021 6:13 AM 09/01/2021 10:32 AM Question Answer Comments Code Status Discussion: Not Discussed Care Teams Contracts Manager Relationship Specialty Start Date End Date Gabby Dupree PA-C [address] [place] [phone] PCP - General Physician Hatchery Worker 06/13/23
[2024-05-03 21:13] LABS: HCO3 VBG 26 mmol/L (21-28); PCO2 VBG 38 mmHG (40-50); PO2 VBG 44.9 mmHG (25-47); pH VBG 7.447 (7.32-7.43)
[2024-05-03 21:14] LABS: Basophils Percent Auto 0.1 % (0.0-3.0); Hematocrit 33.8 % (33.0-51.0); Hemoglobin* 11.4 gm/dL (12.0-16.0); Lymphocytes Percent Auto 13.2 % (20-44); Mean Corpuscular HGB Conc 34 gm/dL (32-36); Mean Corpuscular Hemoglobin 31 pg (26-34); Mean Corpuscular Volume 91 fL (80-100); Neutrophils Percent Auto 82.7 % (42.0-72.0); Platelet Count* 244 K/uL (140-440); RDW Coefficient of Variation % 13.2 % (11.5-15.5); Red Blood Count 3.72 m/uL (4.00-5.20); White Blood Count* 17.29 K/uL (4.50-11.00)
[2024-05-03 21:16] LABS: Slide Review Reflex No
[2024-05-03 21:30] LABS: Chloride* 91 mmol/L (96-114); Sodium* 125 mmol/L (135-149)
[2024-05-03 21:31] LABS: Potassium* 3.4 mmol/L (3.6-5.1)
[2024-05-03 21:32] LABS: Creatinine* 0.9 mg/dL (0.5-1.5); Est. Creatinine Clearance* 36.67; Estimated Glomerular Filt Rate 65 ml/min; INR 1.34 (0.91-1.10); Prothrombin Time 17.4 Seconds
[2024-05-03 21:33] LABS: Alanine Aminotransferase* 25 U/L (4-35); Alkaline Phosphatase* 58 U/L (40-150); Anion Gap 9 mEq/L (7-15); Aspartate Amino Transferase* 28 U/L (12-35); Bilirubin Total* 0.9 mg/dL (0.1-1.5); Carbon Dioxide* 25 mmol/L (20-32); Partial Thromboplastin Time* 35 Seconds (23-33); Total Protein* 7.3 g/dL (6.0-8.3)
[2024-05-03 21:34] LABS: Blood Urea Nitrogen* 24 mg/dL (7-30); Calcium* 8.8 mg/dL (8.4-10.6); Glucose* 189 mg/dL (60-115)
[2024-05-03 21:36] LABS: D Dimer Quantitative* 0.89 ug/ml (0.00-0.50)
[2024-05-03 21:50] LABS: Procalcitonin* 3.41 ng/mL (<0.50)
[2024-05-03] MEDS: IPRAT-ALBUT 0.5-2.5 MG/3 ML NEB 1 NEB IH (21:57)
[2024-05-03 22:05] LABS: NT Pro B Type NatriureticPept* 1590 pg/mL; Troponin I* < 0.01 ng/mL (0.01-0.04)
[2024-05-03] MEDS: AZITHROMYCIN 250 MG TABLET 500 MG PO (22:11)
[2024-05-03] MEDS: cefTRIAXone 1 GM in 0.9 % SODIUM CHLORIDE Mini-bag 100 ML IVPB (22:12)
--- NOTE | 2024-05-03 22:33 | P.IMHP_ITS ---
Hospitalist- H&P: HPI History of Present Illness Date Seen: 05/03/24 Chief complaint: Coughing blood Narrative: Clarita Grimaldo is a 79 year old female admitted through the emergency department with a 12 day history of dyspnea and cough. Twelve days ago she had onset of cough and dyspnea. She had been at a wedding the day prior to this but otherwise had no exposures. No other recent travel. Cough and dyspnea were getting progressively worse. She was seen twice in the [place] [facility] this week with negative chest x-ray. Cough and dyspnea are progressive. Today she has been coughing up streaks of blood in sputum. She has fatigue and malaise. She has only been what able to walk a few feet before having to stop to rest. She has had fever and chills and sweats in the last day as well. Three previous negative COVID tests No previous history of lung disease. She was not a smoker but was exposed to her 's secondhand smoke. Two weeks ago she had diarrheal illness. This was cultured for E coli and she was placed on Cipro for 1 week. She finished that Cipro the day before her respiratory illness began. The diarrhea has resolved. Review of Systems Narrative: Negative except as noted above [facility] Medical History Pancreatitis ?K85.90 - Acute pancreatitis without necrosis or infection, unspecified (ICD- 10) Tendinitis involving right hip abductors ?M76.891 - Other specified enthesopathies of right lower limb, excluding foot (ICD-10) Greater trochanteric bursitis of right hip ?M70.61 - Trochanteric bursitis, right hip (ICD-10) Hypercholesterolemia ?E78.00 - Pure hypercholesterolemia, unspecified (ICD-10) Dysphagia ?R13.10 - Dysphagia, unspecified (ICD-10) Dyspepsia ?R10.13 - Epigastric pain (ICD-10) Diverticulitis ?K57.92 - Diverticulitis of intestine, part unspecified, without perforation or abscess without bleeding (ICD-10) Depression ?F32.A - Depression, unspecified (ICD-10) Barretts esophagus ?K22.70 - Luu's esophagus without dysplasia (ICD-10) Diabetes ?E11.9 - Type 2 diabetes mellitus without complications (ICD-10) GERD (gastroesophageal reflux disease) ?K21.9 - Gastro-esophageal reflux disease without esophagitis (ICD-10) Hypertension ?I10 - Essential (primary) hypertension (ICD-10) Encounter for screening laboratory testing for severe acute respiratory syndrome coronavirus 2 (SARS-CoV-2) ?Z20.822 - Contact with and (suspected) exposure to COVID-19 (ICD-10) Surgical History History of vaginal hysterectomy ?Z90.710 - Acquired absence of both cervix and uterus (ICD-10) History of arthroscopy of left shoulder ?Z98.890 - Other specified postprocedural states (ICD-10) Status post blepharoplasty of both eyes (12/02/21) ?Z98.890 - Other specified postprocedural states (ICD-10) Fissure, anal (~2020) ?K60.2 - Anal fissure, unspecified (ICD-10) History of carpal tunnel surgery of right wrist (05/27/20) ?Z98.890 - Other specified postprocedural states (ICD-10) History of breast surgery ?Z98.890 - Other specified postprocedural states (ICD-10) History of hernia repair ?Z98.890 - Other specified postprocedural states (ICD-10) ?Z87.19 - Personal history of other diseases of the digestive system (ICD-10) History of trigger finger (03/10/21) ?Z87.39 - Personal history of other diseases of the musculoskeletal system and connective tissue (ICD-10) History of carpal tunnel surgery of left wrist (03/10/21) ?Z98.890 - Other specified postprocedural states (ICD-10) History of cholecystectomy ?Z90.49 - Acquired absence of other specified parts of digestive tract (ICD- 10) Family History Brother COPD (chronic obstructive pulmonary disease) Coronary artery disease Prostate cancer Diabetes Sister Colon cancer Coronary artery disease Social History (Updated 05/03/24 @ 22:43 by Robert Guerrero MD) Narrative: She is about 4 years ago. She lives with her daughter and son-in-law in [place]. They have a 3 level house and she lives in the lower level. She has 5 steps to get into the lower level. She has a walk-in shower. She does not smoke. She does not drink alcohol. Her daughter and son are healthcare power of health care attorney. Code status is full What is your current living situation?: I presently have a place to live Problems where you live: no known problems In the past 12 months, utilities in danger of being shut off: no In past 12 months, lack of transportation kept you from medical appts, meetings, work, or getting things needed for daily living: no In the past 12 mos, have been you worried that your food would run out before you had money to buy more?: never true In the past 12 mos, the food you bought just didn't last and you didn't have money to buy more?: never true Highest level of school completed/degree received: high school graduate Smoking Status: Never smoker Do you use any of these nicotine containing products: None Second hand tobacco smoke exposure: No How often do you have a drink containing alcohol: never How often do you have six or more drinks on one occasion: Never AUDIT-C Alcohol total score: 0 Non-prescribed substance use: denies use Caffeine: Yes (coffee) Are you now , , , , never or living with a partner: Social isolation score (0-1 are the most socially isolated patients): 0 How often does anyone, including family, friends and others, physically hurt you : never How often does anyone, including family, friends and others, insult or talk down to you: never How often does anyone, including family, friends and others, threaten you with harm: never How often does anyone, including family, friends and others, scream or curse at you: never Meds Home Medications and Allergies Home Medications ?Medication ?Instructions ?Recorded ?Confirmed ?Type antiarthritic combination no.2 900 900 mg PO QDAY 02/14/22 11/02/23 History mg tablet (glucosamine-chondroitin) atorvastatin 80 mg tablet 80 mg PO .Bedtime 02/14/22 05/03/24 History calcium polycarbophil 625 mg 1,250 mg PO QDAY 02/14/22 11/02/23 History tablet (FiberCon) calcium-vitamin D2-iron tablet 1 tab PO QDAY 02/14/22 05/03/24 History clobetasol 0.05 % topical cream 1 topical BID 02/14/22 11/02/23 History estradiol 0.01% (0.1 mg/gram) 1 g vaginal DAILY 02/14/22 05/03/24 History vaginal cream fluticasone propionate 50 2 spray intranasal DAILY 02/14/22 05/03/24 History mcg/actuation nasal spray,suspension omeprazole 20 mg capsule,delayed 20 mg PO DAILY 02/14/22 05/03/24 History release sertraline 50 mg tablet 50 mg PO DAILY 02/14/22 05/03/24 History albuterol sulfate 90 mcg/actuation 2 puff inhalation 03/21/23 11/02/23 History aerosol inhaler amlodipine 2.5 mg tablet 2.5 mg PO DAILY 03/21/23 05/03/24 History glipizide 2.5 mg tablet, extended 2.5 mg PO DAILY 03/21/23 05/03/24 History release 24 hr hydrochlorothiazide 12.5 mg tablet 12.5 mg PO DAILY 03/21/23 05/03/24 History lisinopril 40 mg tablet 40 mg PO DAILY 03/21/23 05/03/24 History nitrofurantoin 1 cap PO BID 10/27/23 11/02/23 History monohydrate/macrocrystals 100 mg capsule trazodone 50 mg tablet 50 mg PO QPM 10/27/23 05/03/24 History Allergies Allergy/AdvReac Type Severity Reaction Status Date / Time morphine Allergy Unknown Verified 05/03/24 20:23 Exam Narrative: Exam Narrative: She is alert and appears in mild respiratory distress with increased rate and work of breathing on supplemental oxygen. She gives her own history with good detail. Eyes normal. No facial asymmetry. Oropharynx is normal. Small airway. Neck is supple without mass or adenopathy. No stridor. Respirations with prominent bibasilar crackles and diminished breath sounds at the right base. Cardiovascular: Distant S1-S2 regular rate and rhythm. Abdomen is soft without tenderness or mass. External genitalia normal. Extremities without edema. Intact peripheral pulses. Good capillary refill. Const: Vital Signs, click to edit/add: Vital Signs - 24 hr 05/03/24 20:16 05/03/24 21:00 05/03/24 21:13 Temperature 98.6 F Pulse Rate 96 Pulse Rate [Pulse Oximeter] 106 H Respiratory Rate 28 H Blood Pressure [Ri ght Upper Arm] 132/71 Pulse Oximetry 90 94 93 Oxygen Delivery Me thod Room Air Nasal Cannula Nasal Cannula Oxygen Flow Rate 2 2 05/03/24 21:15 05/03/24 21:44 05/03/24 21:45 Temperature Pulse Rate 91 103 H 100 Pulse Rate [Pulse Oximeter] Respiratory Rate Blood Pressure [Ri ght Upper Arm] Pulse Oximetry 93 91 93 Oxygen Delivery Me thod Nasal Cannula Nasal Cannula Nasal Cannula Oxygen Flow Rate 2 2 2 Documenting provider has reviewed patient's vital signs: yes Hospitalist - H&P: Result Labs Labs: Short CBC 05/03/24 Range/Units 21:05 WBC 17.29 H (4.50-11.00) K/uL Hgb 11.4 L (12.0-16.0) gm/dL Hct 33.8 (33.0-51.0) % Plt Count 244 (140-440) K/uL BMP 05/03/24 21:05 Sodium 125 L Potassium 3.4 L Chloride 91 L Carbon Dioxide 25 BUN 24 Creatinine 0.9 Glucose 189 H Calcium 8.8 Cardiac Enzymes 05/03/24 Range/Units 21:05 Troponin I < 0.01 L (0.01-0.04) ng/mL Liver Function 05/03/24 Range/Units 21:05 Total Bilirubin 0.9 (0.1-1.5) mg/dL AST 28 (12-35) U/L ALT 25 (4-35) U/L Alkaline Phosphatase 58 (40-150) U/L Albumin 4.0 (3.3-5.0) g/dL Imaging CT scan - chest: Radiologist's impression: INDICATION: Tachycardia. Hemoptysis. TECHNIQUE: Axial intravenously infused CT cuts were performed from the thoracic inlet to the upper abdomen during the peak phase of pulmonary arterial contrast opacification. 95 mL of Isovue 370 has been injected intravenously. FINDINGS: There are no pulmonary emboli. There is no aortic aneurysm or dissection. There is dense consolidation within the right middle and lower lobes. The left lung is clear. There are no pleural or pericardial fluid collections. There are no enlarged hilar, mediastinal or axillary lymph nodes. There is a moderate hiatal hernia. The visualized liver, spleen, pancreas, adrenal appear normal. There is a 3.5 cm cortical cyst at the upper pole of the left kidney. There are there are no lytic or sclerotic skeletal lesions. IMPRESSION: 1. Negative for pulmonary emboli. 2. Dense consolidation within the middle and lower lobes of the right lung consistent with pneumonia. 3. Moderate hiatal hernia. Assessment and Plan Assessment and plan (1) Community acquired pneumonia: Problem comment: 12 day history of respiratory illness progressively getting worse with fever, hemoptysis and hypoxia at today. Ceftriaxone and azithromycin treatment. Supplemental oxygen. Status: Acute (2) Hypoxia: Problem comment: Primarily due to pneumonia. May have sleep apnea as well Status: Acute (3) Diabetes: Problem comment: Will use sliding scale insulin to start. Not taking in much p.o. food and fluid. Hold oral hypoglycemics until eating. Status: Acute (4) Obesity: Problem comment: BMI 41.5 (previous BMI of 42.0) Status: Acute Plan 79-year-old female admitted to the hospital for treatment of hypoxic respiratory failure and community-acquired pneumonia. Moderately ill. A Zithromax and ceftriaxone. Oxygen. Total Time Spent Total Time Spent: Total time spent is 80 minutes in evaluation and management and discussion with patient family and other providers management of community-acquired pneumonia and hypoxic respiratory failure
[2024-05-04] VITALS (8 sets, daily range): BP systolic 117–136; BP diastolic 47–96; PULSE 86–96; RESP 2–26; TEMP 36.6–37.3; O2SAT 92–96
[2024-05-04] MEDS: IPRAT-ALBUT 0.5-2.5 MG/3 ML NEB 1 NEB IH ×5 (00:15→22:50)
[2024-05-04] MEDS: ATORVASTATIN CALCIUM 40 MG TABLET 80 MG PO ×2 (00:15→21:14)
[2024-05-04] MEDS: ACETAMINOPHEN 325 MG TABLET 650 MG PO ×3 (00:19→15:04)
[2024-05-04] MEDS: MELATONIN 3 MG TABLET PO (00:20)
[2024-05-04 00:21] LABS: C Reactive Protein* 29.2 mg/dL (0.5-1.0)
--- NOTE | 2024-05-04 05:58 | PC.NURSE ---
Shift note: Pt arrived was brought to the unit on wheelchair at 2120. Pt reported of feeling unwell for the past 2 weeks with SOB, cough, ribs tightness from persistent cough. She has been on 2L of oxygen throughout the night. Pt is alert and oriented and independent in room. Medications including Ipra/albuterol neb given. Pt reported 2 loose stool since admission. SCD and continuous pulse monitoring applied. Pt refused NESSA stocking. Tylenol was given at 0120 for rib tightness. Pt had adequate sleep. Vitally stable.
[2024-05-04 06:56] LABS: Basophils Percent Auto 0.1 % (0.0-3.0); Eosinophils Percent Auto 0.2 % (0.0-7.0); Hematocrit 31.4 % (33.0-51.0); Hemoglobin* 10.5 gm/dL (12.0-16.0); Immature Granulocytes Pct Auto 1.6 %; Lymphocytes Percent Auto 15.1 % (20-44); Mean Corpuscular HGB Conc 33 gm/dL (32-36); Mean Corpuscular Hemoglobin 31 pg (26-34); Mean Corpuscular Volume 92 fL (80-100); Monocytes Percent Auto 3.1 % (0.0-11.0); Neutrophils Percent Auto 79.9 % (42.0-72.0); Platelet Count* 238 K/uL (140-440); RDW Coefficient of Variation % 13.4 % (11.5-15.5); Red Blood Count 3.41 m/uL (4.00-5.20); White Blood Count* 19.44 K/uL (4.50-11.00)
[2024-05-04 07:00] LABS: Slide Review Reflex No
[2024-05-04 07:12] LABS: Chloride* 92 mmol/L (96-114); Potassium* 3.1 mmol/L (3.6-5.1); Sodium* 126 mmol/L (135-149)
[2024-05-04 07:15] LABS: Est. Creatinine Clearance* 36.67; Estimated Glomerular Filt Rate 58 ml/min
[2024-05-04 07:16] LABS: Anion Gap 10 mEq/L (7-15); Blood Urea Nitrogen* 26 mg/dL (7-30); Calcium* 8.3 mg/dL (8.4-10.6); Carbon Dioxide* 24 mmol/L (20-32); Glucose* 156 mg/dL (60-115)
[2024-05-04 07:54] LABS: C Reactive Protein* 36.6 mg/dL (0.5-1.0)
[2024-05-04] MEDS: SERTRALINE 50 MG TABLET 100 MG PO (09:05)
[2024-05-04] MEDS: lisinopriL 20 MG TABLET 40 MG PO (09:05)
[2024-05-04] MEDS: AMLODIPINE 5 MG TABLET 2.5 MG PO (09:05)
[2024-05-04] MEDS: INSULIN ASPART 100 UNIT/ML SUBCUT ×3 (09:06→21:13)
[2024-05-04] MEDS: SODIUM CHLORIDE 0.9 % (FLUSH) 10 ML SYRINGE 5 ML IVF ×2 (09:07→21:16)
[2024-05-04] MEDS: OMEPRAZOLE 20 MG CAPSULE DR PO (09:57)
[2024-05-04] MEDS: AZITHROMYCIN 250 MG TABLET 500 MG PO (12:12)
[2024-05-04] MEDS: cefTRIAXone 1 GM in 0.9 % SODIUM CHLORIDE Mini-bag 100 ML IVPB (12:13)
[2024-05-04] MEDS: BENZOCAINE/MENTHOL 1 EACH LOZENGE MUCOUS MEM (13:52)
[2024-05-04] MEDS: guaiFENesin 100 MG/ML CUP PO ×2 (13:52→23:39)
--- NOTE | 2024-05-04 15:57 | RESP.RT ---
Patient was on 3L NC SATing 97% and was subsequently weaned to 2L NC and continues to SAT 95%. We will continue to wean O2 to keep SAT above 88%. Patient is coughing up a small amount of blood streaked mucus. She is clearing well and able to take deep breaths and cough effectively.
--- NOTE | 2024-05-04 15:58 | PM.IMPN1 ---
Progress Note: A&P Assessment and plan (1) Community acquired pneumonia: Problem details: 12 day history of respiratory illness progressively getting worse with fever, hemoptysis and hypoxia at today. Ceftriaxone and azithromycin treatment. Supplemental oxygen. Status: Acute (2) Hypoxia: Problem details: Primarily due to pneumonia. May have sleep apnea as well Status: Acute (3) Diabetes: Problem details: Will use sliding scale insulin to start. Not taking in much p.o. food and fluid. Hold oral hypoglycemics until eating. Status: Acute (4) Obesity: Problem details: BMI 41.5 (previous BMI of 42.0) Status: Acute Plan Continue in-hospital for monitoring of respiratory status, IV antibiotics, diabetes management. Time Spent With Patient Total time spent: Total time spent today is 40 minutes in coordination of care and discussing with patient other providers ongoing management of pneumonia and hypoxia Subjective Date Seen: 05/04/24 Interval history: Clarita Grimaldo is a 79 year old female admitted through the emergency department with a 12 day history of dyspnea and cough. Twelve days ago she had onset of cough and dyspnea. She had been at a wedding the day prior to this but otherwise had no exposures. No other recent travel. Cough and dyspnea were getting progressively worse. She was seen twice in the [facility] this week with negative chest x-ray. Cough and dyspnea are progressive. Today she has been coughing up streaks of blood in sputum. She has fatigue and malaise. She has only been what able to walk a few feet before having to stop to rest. She has had fever and chills and sweats in the last day as well. Three previous negative COVID tests No previous history of lung disease. She was not a smoker but was exposed to her 's secondhand smoke. Two weeks ago she had diarrheal illness. This was cultured for E coli and she was placed on Cipro for 1 week. She finished that Cipro the day before her respiratory illness began. The diarrhea has resolved. May 04: Patient feeling slightly better today. Still coughing up sputum with blood tinge. Subjective fever and chills have resolved. No documented fever. Still requiring oxygen. Poor appetite but able to eat some food. Exam Narrative: Exam Narrative: She is alert and still appears to have mild increased work of breathing. She gives her own history and is oriented to her circumstances. Respirations with diminished breath sounds at the right base with a few crackles also left base crackles. No wheezing. Fair air exchange in upper lung cam. Cardiovascular: S1, S2, regular rate and rhythm. Abdomen is soft without tenderness or mass. Extremities without edema. Const: Vital Signs, click to edit/add: Vital Signs - 24 hr 05/03/24 20:16 05/03/24 21:00 05/03/24 21:13 Temperature 98.6 F Pulse Rate 96 Pulse Rate [Pulse Oximeter] 106 H Respiratory Rate 28 H Blood Pressure Blood Pressure [Le ft Arm] Blood Pressure [Ri ght Upper Arm] 132/71 Pulse Oximetry 90 94 93 Oxygen Delivery Me thod Room Air Nasal Cannula Nasal Cannula Oxygen Flow Rate 2 2 05/03/24 21:15 05/03/24 21:44 05/03/24 21:45 Temperature Pulse Rate 91 103 H 100 Pulse Rate [Pulse Oximeter] Respiratory Rate Blood Pressure Blood Pressure [Le ft Arm] Blood Pressure [Ri ght Upper Arm] Pulse Oximetry 93 91 93 Oxygen Delivery Me thod Nasal Cannula Nasal Cannula Nasal Cannula Oxygen Flow Rate 2 2 2 05/03/24 22:00 05/03/24 22:02 05/03/24 22:15 Temperature Pulse Rate 95 94 94 Pulse Rate [Pulse Oximeter] Respiratory Rate Blood Pressure 125/59 L Blood Pressure [Le ft Arm] Blood Pressure [Ri ght Upper Arm] Pulse Oximetry 93 94 93 Oxygen Delivery Me thod Nasal Cannula Nasal Cannula Nasal Cannula Oxygen Flow Rate 2 2 2 05/03/24 22:30 05/03/24 22:32 05/03/24 23:24 Temperature 98.3 F Pulse Rate 95 99 Pulse Rate [Pulse Oximeter] Respiratory Rate 26 H Blood Pressure 121/51 L Blood Pressure [Le ft Arm] 135/58 L Blood Pressure [Ri ght Upper Arm] Pulse Oximetry 93 94 94 Oxygen Delivery Me thod Nasal Cannula Nasal Cannula Nasal Cannula Oxygen Flow Rate 2 2 2 05/03/24 23:24 05/03/24 23:36 05/04/24 00:21 Temperature 98.3 F Pulse Rate Pulse Rate [Pulse Oximeter] Respiratory Rate 26 H 26 H 26 H Blood Pressure Blood Pressure [Le ft Arm] 135/58 L Blood Pressure [Ri ght Upper Arm] Pulse Oximetry 94 94 95 Oxygen Delivery Me thod Nasal Cannula Nasal Cannula Room Air Oxygen Flow Rate 2 2 2 05/04/24 00:23 05/04/24 02:31 05/04/24 08:00 Temperature 98.2 F Pulse Rate Pulse Rate [Pulse Oximeter] Respiratory Rate 24 2 L Blood Pressure Blood Pressure [Le ft Arm] 118/59 L Blood Pressure [Ri ght Upper Arm] Pulse Oximetry 95 94 92 Oxygen Delivery Me thod Room Air Nasal Cannula Oxygen Flow Rate 2 05/04/24 08:00 05/04/24 12:02 05/04/24 15:00 Temperature 99.1 F 97.9 F Pulse Rate Pulse Rate [Pulse Oximeter] 96 92 Respiratory Rate 20 20 20 Blood Pressure Blood Pressure [Le ft Arm] 131/52 L 117/47 L Blood Pressure [Ri ght Upper Arm] Pulse Oximetry 92 96 94 Oxygen Delivery Me thod Nasal Cannula Nasal Cannula Nasal Cannula Oxygen Flow Rate 2 2 2 05/04/24 15:00 Temperature 98.5 F Pulse Rate Pulse Rate [Pulse Oximeter] 94 Respiratory Rate 20 Blood Pressure Blood Pressure [Le ft Arm] 122/75 Blood Pressure [Ri ght Upper Arm] Pulse Oximetry 94 Oxygen Delivery Me thod Nasal Cannula Oxygen Flow Rate 2 Documenting provider has reviewed patient's vital signs: yes Labs Labs: Laboratory Results - last 24 hr 05/03/24 05/03/24 05/04/24 21:05 21:05 05:58 WBC 17.29 H 19.44 H RBC 3.72 L 3.41 L Hgb 11.4 L 10.5 L Hct 33.8 31.4 L MCV 91 92 MCH 31 31 MCHC 34 33 RDW Coeff of Felicia 13.2 13.4 Plt Count 244 238 Neut % (Auto) 82.7 H 79.9 H Lymph % (Auto) 13.2 L 15.1 L [place] % (Auto) 3.0 3.1 Eos % (Auto) 0.0 0.2 Baso % (Auto) 0.1 0.1 Neut # (Auto) 14.30 H 15.50 H Lymph # (Auto) 2.30 2.90 [place] # (Auto) 0.50 0.60 Eos # (Auto) 0.00 0.00 Baso # (Auto) 0.00 0.00 Abs Immat Gran (auto) 0.20 0.30 Imm/Tot Granulo (auto) 1.0 1.6 INR 1.34 H APTT 35 H D-Dimer Quant (PE/DVT) 0.89 H VBG pH 7.447 H VBG pCO2 38 L VBG pO2 44.9 VBG HCO3 26 Sodium 125 L 126 L Potassium 3.4 L 3.1 L Chloride 91 L 92 L Carbon Dioxide 25 24 Anion Gap 9 10 BUN 24 26 Creatinine 0.9 1.0 Estimated Creat Clear 36.67 36.67 Estimated GFR 65 58 Glucose 189 H 156 H Lactate 2.0 H Calcium 8.8 8.3 L Total Bilirubin 0.9 AST 28 ALT 25 Alkaline Phosphatase 58 Troponin I < 0.01 L C-Reactive Protein Cancelled 29.2 H 36.6 H NT-Pro-B Natriuret Pep 1590 Total Protein 7.3 Albumin 4.0 Procalcitonin 3.41 H
--- NOTE | 2024-05-04 16:21 | PC.NURSE ---
Shift Summary: patient pleasant and cooperative. Up with SBA to bathroom, requiring o2 @ 2L/NC, o2 dropped to 86% after ambulation but quickly recovers. Cough heard throughout shift, patient states pain with coughing and nausea, given standing orders for cough see SEP. Relief following PRN medication, was able to take a nap this afternoon. Tolerating regular diet.
[2024-05-04] MEDS: LACTOBACILLUS ACIDOPHILUS 1 TABLET 1 TAB PO (17:51)
[2024-05-04] MEDS: TRAZODONE HCL 50 MG TABLET PO (21:14)
[2024-05-05] VITALS (8 sets, daily range): BP systolic 127–157; BP diastolic 56–91; PULSE 82–92; RESP 18–20; TEMP 36.4–37.1; O2SAT 91–96
[2024-05-05] MEDS: IPRAT-ALBUT 0.5-2.5 MG/3 ML NEB 1 NEB IH ×4 (04:35→23:19)
--- NOTE | 2024-05-05 05:01 | PC.NURSE ---
Shift note: Pt is pleasant, alert and oriented. Continue to cough but reported that the cough is getting better today compared to yesterday. No pain reported. Pt has been on 2L of oxygen throughout the shift. Ambulated independently in room. Droplet precaution in place. Vitally stable. Pt had adequate sleep.
[2024-05-05 06:56] LABS: Basophils Percent Auto 0.1 % (0.0-3.0); Eosinophils Percent Auto 2.5 % (0.0-7.0); Hematocrit 32.9 % (33.0-51.0); Hemoglobin* 10.9 gm/dL (12.0-16.0); Immature Granulocytes Pct Auto 0.9 %; Lymphocytes Percent Auto 21.5 % (20-44); Mean Corpuscular HGB Conc 33 gm/dL (32-36); Mean Corpuscular Hemoglobin 31 pg (26-34); Mean Corpuscular Volume 92 fL (80-100); Monocytes Percent Auto 5.6 % (0.0-11.0); Neutrophils Percent Auto 69.4 % (42.0-72.0); Platelet Count* 266 K/uL (140-440); RDW Coefficient of Variation % 13.4 % (11.5-15.5); Red Blood Count 3.57 m/uL (4.00-5.20); White Blood Count* 14.99 K/uL (4.50-11.00)
[2024-05-05 07:01] LABS: Slide Review Reflex No
[2024-05-05 07:16] LABS: Chloride* 94 mmol/L (96-114); Potassium* 3.2 mmol/L (3.6-5.1); Sodium* 130 mmol/L (135-149)
[2024-05-05 07:19] LABS: Creatinine* 0.9 mg/dL (0.5-1.5); Est. Creatinine Clearance* 36.67; Estimated Glomerular Filt Rate 65 ml/min
[2024-05-05 07:20] LABS: Anion Gap 10 mEq/L (7-15); Blood Urea Nitrogen* 21 mg/dL (7-30); Calcium* 8.7 mg/dL (8.4-10.6); Carbon Dioxide* 26 mmol/L (20-32); Glucose* 159 mg/dL (60-115)
[2024-05-05 07:59] LABS: C Reactive Protein* 34.1 mg/dL (0.5-1.0)
[2024-05-05] MEDS: ACETAMINOPHEN 325 MG TABLET 650 MG PO ×3 (08:51→20:26)
[2024-05-05] MEDS: OMEPRAZOLE 20 MG CAPSULE DR PO (08:51)
[2024-05-05] MEDS: guaiFENesin 100 MG/ML CUP PO ×3 (08:52→20:26)
[2024-05-05] MEDS: POTASSIUM BICARB 25 MEQ EFFERVESCENT TAB 50 MEQ PO (08:52)
[2024-05-05] MEDS: INSULIN ASPART 100 UNIT/ML SUBCUT ×4 (09:19→20:31)
[2024-05-05] MEDS: SERTRALINE 50 MG TABLET 100 MG PO (09:20)
[2024-05-05] MEDS: LACTOBACILLUS ACIDOPHILUS 1 TABLET 1 TAB PO ×3 (09:20→17:17)
[2024-05-05] MEDS: AMLODIPINE 5 MG TABLET 2.5 MG PO (09:20)
[2024-05-05] MEDS: lisinopriL 20 MG TABLET 40 MG PO (09:20)
[2024-05-05] MEDS: SODIUM CHLORIDE 0.9 % (FLUSH) 10 ML SYRINGE 5 ML IVF ×2 (09:23→20:30)
[2024-05-05] MEDS: AZITHROMYCIN 250 MG TABLET 500 MG PO (12:13)
[2024-05-05] MEDS: cefTRIAXone 1 GM in 0.9 % SODIUM CHLORIDE Mini-bag 100 ML IVPB (12:13)
--- NOTE | 2024-05-05 15:08 | PM.IMPN1 ---
Progress Note: A&P Assessment and plan (1) Community acquired pneumonia: Problem details: 12 day history of respiratory illness progressively getting worse with fever, hemoptysis and hypoxia at today. Ceftriaxone and azithromycin treatment. Getting better. Status: Acute (2) Hypoxia: Problem details: Primarily due to pneumonia. May have sleep apnea as well. Resolved Status: Acute (3) Diabetes: Problem details: Will use sliding scale insulin to start. Not taking in much p.o. food and fluid. Hold oral hypoglycemics until eating. Status: Acute (4) Obesity: Problem details: BMI 41.5 (previous BMI of 42.0) Status: Acute (5) Hypertension: Problem details: Hold home blood pressure medicines until blood pressure requires. Status: Acute (6) Hyponatremia: Problem details: Discontinue hydrochlorothiazide. Start torsemide as alternative diuretic with hyponatremia and hypertension Status: Acute Plan Continue in hospital for 1 more day. Restart home medications. Possible discharge to home if she is safe to be on her own. Time Spent With Patient Total time spent: Total time spent today is 45 minutes in coordination of care and discussing with patient and other providers ongoing management. Subjective Date Seen: 05/05/24 Interval history: Clarita Grimaldo is a 79 year old female admitted through the emergency department with a 12 day history of dyspnea and cough. Twelve days ago she had onset of cough and dyspnea. She had been at a wedding the day prior to this but otherwise had no exposures. No other recent travel. Cough and dyspnea were getting progressively worse. She was seen twice in the [facility] this week with negative chest x-ray. Cough and dyspnea are progressive. Today she has been coughing up streaks of blood in sputum. She has fatigue and malaise. She has only been what able to walk a few feet before having to stop to rest. She has had fever and chills and sweats in the last day as well. Three previous negative COVID tests No previous history of lung disease. She was not a smoker but was exposed to her 's secondhand smoke. Two weeks ago she had diarrheal illness. This was cultured for E coli and she was placed on Cipro for 1 week. She finished that Cipro the day before her respiratory illness began. The diarrhea has resolved. May 04: Patient feeling slightly better today. Still coughing up sputum with blood tinge. Subjective fever and chills have resolved. No documented fever. Still requiring oxygen. Poor appetite but able to eat some food. 05/05/2024: She is feeling much better today. She has weaned off of oxygen. She still feeling weak. Her appetite is still not good. She gets winded with any activity. She still has significant cough but no longer bloody sputum. Exam Narrative: Exam Narrative: She is alert and appears in no distress. Mood and affect are brighter today. Respirations with much improved air exchange at the bases of the lungs. Still an occasional basilar crackle. Cardiovascular: S1, S2, regular rate and rhythm. Abdomen: Bowel sounds active. Abdomen is soft without tenderness or mass. Extremities without edema. Const: Vital Signs, click to edit/add: Vital Signs - 24 hr 05/04/24 19:00 05/04/24 22:46 05/04/24 22:46 Temperature 98.4 F Pulse Rate [Pulse Oximeter] 91 86 Respiratory Rate 20 20 20 Blood Pressure [Le ft Arm] 128/96 H Pulse Oximetry 96 95 Oxygen Delivery Me thod Nasal Cannula Nasal Cannula Oxygen Flow Rate 2 2 05/04/24 22:46 05/05/24 00:00 05/05/24 02:47 Temperature 98.6 F 98.8 F Pulse Rate [Pulse Oximeter] 86 91 Respiratory Rate 20 20 Blood Pressure [Le ft Arm] 136/69 137/70 Pulse Oximetry 95 94 95 Oxygen Delivery Me thod Nasal Cannula Nasal Cannula Oxygen Flow Rate 2 2 05/05/24 08:08 05/05/24 08:08 05/05/24 11:04 Temperature 98.2 F 98 F Pulse Rate [Pulse Oximeter] 82 92 Respiratory Rate 20 20 20 Blood Pressure [Le ft Arm] 157/70 H 138/56 L Pulse Oximetry 96 96 91 Oxygen Delivery Me thod Nasal Cannula Nasal Cannula Room Air Oxygen Flow Rate 2 2 Labs Labs: Laboratory Results - last 24 hr 05/05/24 06:01 WBC 14.99 H RBC 3.57 L Hgb 10.9 L Hct 32.9 L MCV 92 MCH 31 MCHC 33 RDW Coeff of Felicia 13.4 Plt Count 266 Neut % (Auto) 69.4 Lymph % (Auto) 21.5 [place] % (Auto) 5.6 Eos % (Auto) 2.5 Baso % (Auto) 0.1 Neut # (Auto) 10.40 H Lymph # (Auto) 3.20 H [place] # (Auto) 0.80 Eos # (Auto) 0.40 Baso # (Auto) 0.00 Abs Immat Gran (auto) 0.10 Imm/Tot Granulo (auto) 0.9 Sodium 130 L Potassium 3.2 L Chloride 94 L Carbon Dioxide 26 Anion Gap 10 BUN 21 Creatinine 0.9 Estimated Creat Clear 36.67 Estimated GFR 65 Glucose 159 H Calcium 8.7 C-Reactive Protein 34.1 H
--- NOTE | 2024-05-05 16:17 | PC.NURSE ---
Shift Summary: Patient pleasant and cooperative. Up independently. Vitals stable and WNL. Pain with cough, managed with PRN medication see SEP. Room air throughout day, walked in halls with staff, o2 sat dropped to 88% however patient quickly recovered with rest. Tolerating regular diet.
[2024-05-05] MEDS: ATORVASTATIN CALCIUM 40 MG TABLET 80 MG PO (20:27)
[2024-05-05] MEDS: TRAZODONE HCL 50 MG TABLET PO (20:30)
[2024-05-06] MEDS: guaiFENesin 100 MG/ML CUP PO (03:25)
[2024-05-06 03:30] VITALS: BP 148/76; PULSE 90; RESP 20; TEMP 36.9; O2SAT 94
[2024-05-06] MEDS: phenoL 1.4 % THROAT SPRAY 1 SPRAY MUCOUS MEM (03:34)
--- NOTE | 2024-05-06 05:21 | PC.NURSE ---
END OF SHIFT NOTE: PT PLEASANT AND COOPERATIVE WITH CARES. A&O. LS WITH EXPIRATORY COARSE CRACKLE THROUGHOUT POSTERIOR. LITTLE SLEEP DURING HS; UP MOST OF THE NIGHT COUGHING. COUGH HAS BECOME LESS PRODUCTIVE AND MORE OF A BARKY COUGH. PT ENCOURAGED TO ELEVATE HOB. PT REPORTS PAIN TO THROAT 5/10; SOME RELIEF FROM PRN MEDS (SEE EMAR). VSS ON RA; AFEBRILE. AMBULATES WITHIN ROOM INDEPENDENTLY. CALL LIGHT WITHIN REACH.
[2024-05-06 06:41] LABS: Basophils Absolute Auto 0.02 K/uL (0.00-0.30); Basophils Percent Auto 0.2 % (0.0-3.0); Eosinophils Absolute Auto 0.37 K/uL (0.00-0.50); Eosinophils Percent Auto 4.1 % (0.0-7.0); Hematocrit 32.1 % (33.0-51.0); Hemoglobin* 10.7 gm/dL (12.0-16.0); Immature Granulocytes Abs Auto 0.03 K/uL (0.00-0.30); Immature Granulocytes Pct Auto 0.3 %; Lymphocytes Absolute Auto 2.01 K/uL (0.90-2.90); Lymphocytes Percent Auto 22.1 % (20-44); Mean Corpuscular HGB Conc 33 gm/dL (32-36); Mean Corpuscular Hemoglobin 31 pg (26-34); Mean Corpuscular Volume 92 fL (80-100); Monocytes Percent Auto 7.6 % (0.0-11.0); Neutrophils Absolute Auto 5.99 K/uL (1.7-7.0); Neutrophils Percent Auto 65.7 % (42.0-72.0); Platelet Count* 289 K/uL (140-440); RDW Coefficient of Variation % 13.3 % (11.5-15.5); Red Blood Count 3.48 m/uL (4.00-5.20); White Blood Count* 9.11 K/uL (4.50-11.00)
[2024-05-06 06:55] LABS: Chloride* 96 mmol/L (96-114)
[2024-05-06 06:56] LABS: Potassium* 3.4 mmol/L (3.6-5.1); Sodium* 133 mmol/L (135-149)
[2024-05-06 06:59] LABS: Creatinine* 0.7 mg/dL (0.5-1.5); Est. Creatinine Clearance* 36.67; Estimated Glomerular Filt Rate 88 ml/min
[2024-05-06 07:00] LABS: Anion Gap 9 mEq/L (7-15); Blood Urea Nitrogen* 14 mg/dL (7-30); Calcium* 9.1 mg/dL (8.4-10.6); Carbon Dioxide* 28 mmol/L (20-32); Glucose* 192 mg/dL (60-115)
[2024-05-06] MEDS: IPRAT-ALBUT 0.5-2.5 MG/3 ML NEB 1 NEB IH ×2 (07:00→11:07)
[2024-05-06 07:23] LABS: Slide Review Reflex No
[2024-05-06 08:39] VITALS: BP 150/74; PULSE 95; RESP 20; TEMP 36.9; O2SAT 94
[2024-05-06] MEDS: OMEPRAZOLE 20 MG CAPSULE DR PO (08:41)
[2024-05-06] MEDS: glipiZIDE 2.5 MG ER TAB PO (08:41)
[2024-05-06] MEDS: TORSEMIDE 5 MG TABLET PO (08:41)
[2024-05-06] MEDS: AMLODIPINE 5 MG TABLET 2.5 MG PO (08:41)
[2024-05-06] MEDS: lisinopriL 20 MG TABLET 40 MG PO (08:41)
[2024-05-06] MEDS: SERTRALINE 100 MG TABLET PO (08:41)
[2024-05-06] MEDS: LACTOBACILLUS ACIDOPHILUS 1 TABLET 1 TAB PO (08:41)
[2024-05-06] MEDS: ASPIRIN 81 MG TAB.CHEW PO (08:41)
[2024-05-06] MEDS: SODIUM CHLORIDE 0.9 % (FLUSH) 10 ML SYRINGE 5 ML IVF (08:42)
[2024-05-06] MEDS: INSULIN ASPART 100 UNIT/ML SUBCUT (08:42)
--- NOTE | 2024-05-06 09:56 | NUTR.NU ---
Addendum entered and electronically signed by Nicole Sams RD 05/06/24 10:04: Patient reports she has Ensure at home and plans to continue this as needed if she has a difficult time eating meals. Original Note: RDN with diet education related to diabetic diet order. Patient admitted for pneumonia and hypoxia. Past medical history includes but not limited to Diabetes mellitus type 2, pancreatitis, diverticulitis, GERD. Current weight 228lb 12.8oz; height 5ft 2in; BMI 41.8 kg/m2. Patient reports her weight has been stable recently. Current diet is Diabetic. Meal intakes have been above 75% since admit, except for this morning of only bites. Patient reports she drank an Ensure Enlive this morning as well. RDN visited with patient and reports she does not follow a specific diet at home. RDN offered diet education related to diabetes, however she declined at this time. RDN encouraged patient to let us know of any questions or concerns she may have.
--- NOTE | 2024-05-06 11:58 | PM.DS1 ---
DS: Providers Provider Date Seen: 05/06/24 Date of admission: 05/03/24 22:36 Primary care physician: Gabby Dupree PA-C Admitting Clinician: Robert Guerrero MD Attending Physician on discharge: Robert Guerrero MD Date of Discharge: 05/06/24 DS: Diagnosis Discharge Diagnosis (1) Community acquired pneumonia: Status: Acute Problem details: 12 day history of respiratory illness progressively getting worse with fever, hemoptysis and hypoxia. Treated with ceftriaxone and azithromycin. Clinically much improved. (2) Hypoxia: Status: Acute Problem details: Primarily due to pneumonia. May have sleep apnea as well. Resolved (3) Diabetes: Status: Acute Problem details: Resume oral hypoglycemics when eating normally. Blood sugars mostly between 150 and 200 in the hospital (4) Obesity: Status: Acute Problem details: BMI 41.5 (previous BMI of 42.0) (5) Hypertension: Status: Acute Problem details: Hold home blood pressure medicines until blood pressure requires. (6) Hyponatremia: Status: Acute Problem details: Discontinue hydrochlorothiazide. Start torsemide as alternative diuretic with hyponatremia and hypertension. Sodium improved from 125 to 133 DS: Summary Hospital Course Hospital Course: Clarita Grimaldo is a 79 year old female admitted through the emergency department with a 12 day history of dyspnea and cough. Twelve days ago she had onset of cough and dyspnea. She had been at a wedding the day prior to this but otherwise had no exposures. No other recent travel. Cough and dyspnea were getting progressively worse. She was seen twice in the [facility] this week with negative chest x-ray. Cough and dyspnea are progressive. Today she has been coughing up streaks of blood in sputum. She has fatigue and malaise. She has only been what able to walk a few feet before having to stop to rest. She has had fever and chills and sweats in the last day as well. Three previous negative COVID tests No previous history of lung disease. She was not a smoker but was exposed to her 's secondhand smoke. Two weeks ago she had diarrheal illness. This was cultured for E coli and she was placed on Cipro for 1 week. She finished that Cipro the day before her respiratory illness began. The diarrhea has resolved. During her hospital stay she had steady improvement with improvement in her oxygenation, weaning off of supplemental oxygen, improvement in her cough, fatigue malaise and loss of appetite. Time Spent with Patient Time attestation: Total time spent providing and/or coordinating discharge services:40 minutes Time spent: Greater than 30 minutes Exam Narrative: Exam Narrative: She is alert and appears in no distress. Breathing is unlabored on room air. Respirations with few basilar crackles. Otherwise clear to auscultation. No wheezing. Cardiovascular: S1, S2, regular rate and rhythm. Abdomen is soft without tenderness or mass. Const: Vital Signs, click to edit/add: Vital Signs - 24 hr 05/05/24 15:19 05/05/24 16:04 05/05/24 20:10 Temperature 97.7 F 97.5 F L Pulse Rate [Pulse Oximeter] 92 90 Respiratory Rate 20 20 18 Blood Pressure [Le ft Arm] 138/91 H 153/83 H Pulse Oximetry 91 94 95 Oxygen Delivery Me thod Room Air Room Air Room Air 05/05/24 20:10 05/05/24 20:10 05/05/24 23:20 Temperature Pulse Rate [Pulse Oximeter] 90 84 Respiratory Rate 18 18 20 Blood Pressure [Le ft Arm] 127/77 Pulse Oximetry 95 93 Oxygen Delivery Me thod Room Air Room Air 05/05/24 23:20 05/06/24 03:30 05/06/24 08:39 Temperature 98.5 F 98.4 F Pulse Rate [Pulse Oximeter] 90 95 Respiratory Rate 20 20 Blood Pressure [Le ft Arm] 148/76 H 150/74 H Pulse Oximetry 93 94 94 Oxygen Delivery Me thod Room Air Room Air 05/06/24 08:39 Temperature Pulse Rate [Pulse Oximeter] Respiratory Rate 20 Blood Pressure [Le ft Arm] Pulse Oximetry 94 Oxygen Delivery Me thod Room Air Documenting provider has reviewed patient's vital signs: yes DS: Data Data Completed and Pending Labs on day of discharge: Labs from last 24 hours 05/06/24 06:18 WBC 9.11 RBC 3.48 L Hgb 10.7 L Hct 32.1 L MCV 92 MCH 31 MCHC 33 RDW Coeff of Felicia 13.3 Plt Count 289 Neut % (Auto) 65.7 Lymph % (Auto) 22.1 [place] % (Auto) 7.6 Eos % (Auto) 4.1 Baso % (Auto) 0.2 Neut # (Auto) 5.99 Lymph # (Auto) 2.01 [place] # (Auto) 0.70 Eos # (Auto) 0.37 Baso # (Auto) 0.02 Abs Immat Gran (auto) 0.03 Imm/Tot Granulo (auto) 0.3 Sodium 133 L Potassium 3.4 L Chloride 96 Carbon Dioxide 28 Anion Gap 9 BUN 14 Creatinine 0.7 Estimated Creat Clear 36.67 Estimated GFR 88 Glucose 192 H Calcium 9.1 C-Reactive Protein 17.[address] scan - chest: Radiologist's impression: NDICATION: Tachycardia. Hemoptysis. TECHNIQUE: Axial intravenously infused CT cuts were performed from the thoracic inlet to the upper abdomen during the peak phase of pulmonary arterial contrast opacification. 95 mL of Isovue 370 has been injected intravenously. FINDINGS: There are no pulmonary emboli. There is no aortic aneurysm or dissection. There is dense consolidation within the right middle and lower lobes. The left lung is clear. There are no pleural or pericardial fluid collections. There are no enlarged hilar, mediastinal or axillary lymph nodes. There is a moderate hiatal hernia. The visualized liver, spleen, pancreas, adrenal appear normal. There is a 3.5 cm cortical cyst at the upper pole of the left kidney. There are there are no lytic or sclerotic skeletal lesions. IMPRESSION: 1. Negative for pulmonary emboli. 2. Dense consolidation within the middle and lower lobes of the right lung consistent with pneumonia. 3. Moderate hiatal hernia. Discharge Plan Discharge Disposition: Home, Self-Care Date of Admission: 05/03/24 22:36 Attending Provider on Discharge: Robert Guerrero Primary Care Provider: Gabby Dupree Condition: Improved Anticipated Discharge Date/Time: 05/06/24 11:50 Discharge Medications: New codeine-guaifenesin [Guaifenesin AC] 10-100 mg/5 mL liquid 5 ml PO Q6H PRNQty: 120 0RF amoxicillin-pot clavulanate 875-125 mg tablet 1 tab PO BID Qty: 10 0RF torsemide 10 mg tablet 10 mg PO QAM Qty: 30 2RF potassium chloride 10 mEq capsule, extended release 10 meq PO DAILY Qty: 30 0RF Continued fluticasone propionate 50 mcg/actuation spray,suspension 2 spray intranasal DAILY estradiol 0.01 % (0.1 mg/gram) cream 1 g vaginal DAILY omeprazole 20 mg capsule,delayed release(DR/EC) 20 mg PO DAILY atorvastatin 80 mg tablet 80 mg PO HS glipizide 2.5 mg tablet extended release 24hr 2.5 mg PO DAILY lisinopril 40 mg tablet 40 mg PO DAILY amlodipine 2.5 mg tablet 2.5 mg PO DAILY albuterol sulfate 90 mcg/actuation HFA aerosol inhaler 2 puff inhalation Q4H PRN trazodone 50 mg tablet 50 mg PO HS PRN sertraline 100 mg tablet 100 mg PO DAILY aspirin [Aspirin Childrens] 81 mg tablet,chewable 81 mg PO DAILY calcium carbonate-vitamin D3 [Calcium 500 + D] 500 mg-10 mcg (400 unit) tablet 1 tab PO DAILY albuterol sulfate 2.5 mg /3 mL (0.083 %) solution for nebulization 2.5 mg inhalation Q6H PRN clobetasol 0.05 % ointment 1 applic topical BID PRN Discontinued hydrochlorothiazide 12.5 mg tablet 12.5 mg PO DAILY Discharge Orders: Discharge Order (Routine); Ordered 05/06/24 Ordered By: Robert Guerrero Activity Level: No Restrictions Discharge Diet: Diabetic Follow Up Appointments: Gabby Dupree PA-C [Primary Care Provider] - (Follow-up in 1 week. Check basic metabolic panel and follow-up pneumonia.) Forms: [employer] Info Instructions
== END 2024-05-06 13:20 | disposition home or self-care (01) | DRG 194 ==
LOC: ED 21:01 → MEDSURG 22:35
PROVIDERS: Admitting Provider Family Medicine; Emergency Provider Family Medicine; PCP Physician Assistant; Visit Provider Family Medicine
DX: J18.9 Pneumonia, unspecified organism (principal); E87.1 Hypo-osmolality and hyponatremia; Z68.41 Body mass index [BMI] 40.0-44.9, adult; R06.02 Shortness of breath; R09.02 Hypoxemia; Z79.4 Long term (current) use of insulin; E11.9 Type 2 diabetes mellitus without complications; I10 Essential (primary) hypertension; Z77.22 Contact with and (suspected) exposure to environmental tobacco smoke (acute) (chronic); E66.9 Obesity, unspecified
CPT/HCPCS: 36415; 71275; 80048; 80053; 82803; 82962; 83605; 83880; 84145; 84484; 85025; 85379; 85610; 85730; 86140; 93005; 94640; 94761; 97110; 97116; 97162; 97165; 97530; 97535; 99284; 99285; A9270; J0696; Q9967